=== PATIENT | female | born 2000 | race Caucasian/White ===

== ENCOUNTER 2022-03-04 18:36 | Emergency (ER) | payer BC, SELFPAY ==
[2022-03-04 19:08] VITALS: BP 124/74; PULSE 90; RESP 18; O2SAT 99; BMI 25.5
--- NOTE | 2022-03-04 19:22 | ED_ITS ---
HPI - General Adult General Chief complaint: Unspecified Complaint, Adult Stated complaint: Ill, blood in vomit - Time Seen by Provider: 03/04/22 18:46 History of Present Illness HPI narrative: This 21-year-old female comes in reporting nausea and vomiting. She is 8 weeks and states that she has been having some nausea with vomiting in this 1st trimester of her but symptoms worsened today. She states that she is repeatedly vomiting and noticed a few specks of blood in the vomit today. She states that she has been using some say to try to treat these symptoms but she is not taking any prescription anti nausea medicines. She does not report any fevers or diarrhea. She does not have any vaginal discharge or abdominal pain. Related Data Home Medications Medication Instructions Recorded Confirmed buspirone 5 mg tablet mg 03/04/22 dicyclomine 10 mg capsule 20 mg PO 03/04/22 ondansetron HCl 4 mg tablet 4 mg PO Q6-8H PRN 03/04/22 03/04/22 pantoprazole 40 mg tablet,delayed mg PO 03/04/22 release Allergies Allergy/AdvReac Type Severity Reaction Status Date / Time Penicillins AdvReac Verified 03/04/22 19:11 Review of Systems Status of ROS: Reports: 10 or more systems reviewed and unremarkable except as noted in History and below Narrative: Constitutional: No fevers, no weight gain or loss. Eyes: No discharge. No vision changes. HENT: No congestion, no sore throat, no ear pain. Cardiovascular: No chest pain, no palpitations. Respiratory: No shortness of breath, no wheezes, no cough. Gastrointestinal: No abdominal pain, no diarrhea. Nausea with vomiting. Genitourinary: No dysuria, no hematuria. Musculoskeletal: Normal range of motion. Skin: No rashes, no pruritis. Neurological: No dizziness, weakness, sensory change, speech change. Endo/Heme/Allergies: No bruising or bleeding. No polydipsia. Pysch: no suicidality, no anxiety, no insomnia. All other systems reviewed and are negative. PFSH PFSH Social History Smoking Status: Never smoker How often do you have a drink containing alcohol: never AUDIT-C Alcohol total score: 0 Exam Narrative: Exam Narrative: Constitutional: Well-developed, well-nourished, no acute distress. HEENT: Normocephalic, atraumatic. Neck: Normal range of motion. Nontender. Supple. Heart: Regular. No murmurs. Normal rate. Intact distal pulses. Lungs: Clear to auscultation. No chest discomfort. No wheezes, rhonchi, or rales. Abdomen: Normal bowel sounds. Nontender. No rebound tenderness. Genitalia: Deferred. Back: No midline tenderness. Normal range of motion. Extremities: Normal range of motion. No injury. Skin: Intact. No rash. Warm. No erythema or pallor. Neurologic: No altered sensation. No weakness. Alert and oriented. Psychiatric: No suicidality. No anxiety or depression. No insomnia. Nursing notes and vitals signs are reviewed. Const: Vital Signs, click to edit/add: Vital Signs - 24 hr 03/04/22 19:08 Pulse Rate [Right Pulse Oximeter] 90 Respiratory Rate 18 Blood Pressure [Ri ght Upper Arm] 124/74 Pulse Oximetry 99 Oxygen Delivery Me thod Room Air Course Vital Signs Vital signs: Initial Vital Signs Pulse Rate 90 03/04/22 19:08 Respiratory Rate 18 03/04/22 19:08 Blood Pressure 124/74 03/04/22 19:08 Blood Pressure Mean 90 03/04/22 19:08 Blood Pressure Position Sitting 03/04/22 19:08 Pulse Oximetry 99 03/04/22 19:08 Oxygen Delivery Method 03/04/22 19:08 Vital Signs Pulse Rate 90 03/04/22 19:08 Respiratory Rate 18 03/04/22 19:08 Blood Pressure 124/74 03/04/22 19:08 Pulse Oximetry 99 03/04/22 19:08 Oxygen Delivery Method 03/04/22 19:08 Pulse Rate 90 03/04/22 19:08 Respiratory Rate 18 03/04/22 19:08 Blood Pressure 124/74 03/04/22 19:08 Pulse Oximetry 99 03/04/22 19:08 Oxygen Delivery Method 03/04/22 19:08 Medical Decision Making [facility] Narrative Medical decision making narrative: This 21-year-old female comes in with hyper emesis gravidarum. She is 8 weeks . An IV was established where she received a L of normal saline and 4 mg of Zofran intravenously. This brought sufficient relief of her symptoms. Lab results returned with reassuring findings. She did receive a prescription for Zofran. Lab Data Labs: Lab Results 03/04/22 03/04/22 Range/Units 19:30 19:30 WBC 8.85 (4.50-11.00) K/uL RBC 4.14 (4.00-5.20) m/uL Hgb 12.3 (12.0-16.0) gm/dL Hct 35.7 (33.0-51.0) % MCV 86 (80-100) fL MCH 30 (26-34) pg MCHC 35 (32-36) gm/dL Plt Count 273 (140-440) K/uL Neut % (Auto) 69.4 (42.0-72.0) % Lymph % (Auto) 24.1 (20-44) % [place] % (Auto) 5.3 (0.0-11.0) % Eos % (Auto) 0.6 (0.0-7.0) % Baso % (Auto) 0.1 (0.0-3.0) % Neut # (Auto) 6.10 (1.7-7.0) K/uL Lymph # (Auto) 2.10 (0.90-2.90) K/uL [place] # (Auto) 0.50 (0.00-0.90) K/UL Eos # (Auto) 0.10 (0.00-0.50) K/uL Baso # (Auto) 0.00 (0.00-0.30) K/uL Sodium 133 L (135-149) mmol/L Potassium 3.8 (3.6-5.1) mmol/L Chloride 101 (96-114) mmol/L Carbon Dioxide 24 (20-32) mmol/L BUN 14 (5-24) mg/dL Creatinine 0.5 (0.5-1.5) mg/dL Estimated Creat Clear 147.23 Estimated GFR 137 ml/min Glucose 82 (60-115) mg/dL Calcium 9.7 (8.4-10.6) mg/dL Discharge Plan Discharge Clinical Impression: Hyperemesis gravidarum Patient Disposition: Home, Self-Care Condition: Stable Additional Instructions: Take frequent sips of fluid. Use medication as needed and indicated. Follow up with MD or return if worsening. Prescriptions: No Action buspirone 5 mg tablet Label Comments: TAKE ONE TABLET BY MOUTH EVERY MORNING AND TAKE ONE TABLET BY MOUTH EVERY EVENING ; START WITH ONE-HALF TABLET ONCE DAILY AND INCREASE TO ON dicyclomine 10 mg capsule 20 mg PO Label Comments: TAKE ONE CAPSULE BY MOUTH THREE TIMES DAILY pantoprazole 40 mg tablet,delayed release (DR/EC) PO Label Comments: TAKE ONE TABLET BY MOUTH EVERY DAY 30 MINUTES BEFORE BREAKFAST. ondansetron HCl 4 mg tablet 4 mg PO Q6-8H PRN Follow Up/Referrals: Tanvi Mccoy, RICHARD, [employer] [Primary Care Provider] - Stand Alone Forms: [facility] Info Instructions
[2022-03-04] MEDS: ONDANSETRON 2 MG/ML inj 4 MG IVP (19:31)
[2022-03-04] MEDS: 0.9 % SODIUM CHLORIDE 1000 ml 1,000 ML IV (19:31)
[2022-03-04 19:39] LABS: Hemoglobin* 12.3 gm/dL (12.0-16.0); Red Blood Count 4.14 m/uL (4.00-5.20); White Blood Count* 8.85 K/uL (4.50-11.00)
[2022-03-04 19:40] LABS: Basophils Percent Auto 0.1 % (0.0-3.0); Eosinophils Percent Auto 0.6 % (0.0-7.0); Hematocrit 35.7 % (33.0-51.0); Lymphocytes Percent Auto 24.1 % (20-44); Mean Corpuscular HGB Conc 35 gm/dL (32-36); Mean Corpuscular Hemoglobin 30 pg (26-34); Mean Corpuscular Volume 86 fL (80-100); Monocytes Percent Auto 5.3 % (0.0-11.0); Neutrophils Percent Auto 69.4 % (42.0-72.0); Platelet Count* 273 K/uL (140-440); Slide Review Reflex No
--- OUTSIDE RECORDS SUMMARY | 2022-03-04 19:51 | XMS_ITS | Encounter Summary ---
:2000 Author Organization [facility] Address [address] [place] [id number] Care Team Providers Name Role Phone Tanvi Mccoy ELLEN Primary Care Provider [phone] Reason for Visit Reason Comments Abdominal Pain Encounter Details Date Type Department Care Team Description 06/29/2019 Emergency [facility] [place] Carly Velez Pelvic mimi in in female; [facility] Emergency TANIA Mueller Constipation, unspecified constipation t ype Dept [facility] [address] [place], [place] [address] [facility] [id number] [place] [address] [place] [address] (Wo rk) Social History Tobacco Use Types Packs/Day Years Used Date Smoking Tobacco: Never Sex Assigned at Date Recorded Not on file documented as of this encounter Last Filed Vital Signs Vital Sign Reading Time Taken Comments Blood Pressure 131/72 06/29/2019 5:55 PM RELIGIOUS RITUAL SLAUGHTERER Pulse 87 06/29/2019 5:55 PM RELIGIOUS RITUAL SLAUGHTERER Temperature 37 ??C (98.6 ??F) 06/29/2019 5:55 PM RELIGIOUS RITUAL SLAUGHTERER Respiratory Rate 16 06/29/2019 5:55 PM RELIGIOUS RITUAL SLAUGHTERER Oxygen Saturation 98% 06/29/2019 5:55 PM RELIGIOUS RITUAL SLAUGHTERER Inhaled Oxygen Concentration - - Weight - - Height - - Body Mass Index - - documented in this encounter Discharge Instructions Discharge InstructionsCarly Esteves PA-C - 06/29/2019 8:53 PM RELIGIOUS RITUAL SLAUGHTERER Discharge Instructions Abdominal Pain Abdominal pain (belly pain) can be caused by many things. Your evaluation today does not show the exact cause for your pain. Your provider today has decided that it is unlikely your pain is due to a life threatening problem, or a problem requiring surgery or hospital admission. Sometimes those problems cannot be found right away, so it is very important that you follow up as directed. Sometimes only the changes which occur over time allow the cause of your pain to be found. Generally, every Emergency Department visit should have a follow-up clinic visit with either a primary or a specialty clinic/provider. Please follow-up as instructed by your emergency provider today. With abdominal pain, we often recommend very close follow-up, such as the following day. ADULTS: Return to the Emergency Department right away if: You get an oral temperature above 102oF or as directed by your provider. You have blood in your stools. This may be bright red or appear as black, tarry stools. You keep vomiting (throwing up) or cannot drink liquids. You see blood when you vomit. You cannot have a bowel movement or you cannot pass gas. Your stomach gets bloated or bigger. Your skin or the whites of your eyes look yellow. You faint. You have bloody, frequent or painful urination (peeing). You have new symptoms or anything that worries you. CHILDREN: Return to the Emergency Department right away if your child has any of the above-listed symptoms or the following: Pushes your hand away or screams/cries when his/her belly is touched. You notice your child is very fussy or weak. Your child is very tired and is too tired to eat or drink. Your child is dehydrated. Signs of dehydration can be: Significant change in the amount of wet diapers/urine. Your or child starts to have dry mouth and lips, or no saliva (spit) or tears. WOMEN: Return to the Emergency Department right away if you have any of the above-listed symptoms or the following: You have bleeding, leaking fluid or passing tissue from the vagina. You have worse pain or cramping, or pain in your shoulder or back. You have vomiting that will not stop. You have a temperature of 100oF or more. Your baby is not moving as much as usual. You faint. You get a bad headache with or without eye problems and abdominal pain. You have a seizure. You have unusual discharge from your vagina and abdominal pain. Abdominal pain is pretty common during . Your pain may or may not be related to your . You should follow-up closely with your OB provider so they can evaluate you and your baby. Untilyou follow-up with your regular provider, do the following: Avoid sex and do not put anything in your vagina. Drink clear fluids. Only take medications approved by your provider. MORE INFORMATION: Appendicitis: A possible cause of abdominal pain in any person who still has their appendix is acuteappendicitis. Appendicitis is often hard to diagnose. Testing does not always rule out early appendicitis or other causes of abdominal pain. Close follow-up with your provider and re-evaluations may beneeded to figure out the reason for your abdominal pain. Follow-up: It is very important that you make an appointment with your clinic and go to the appointment. If you do not follow-up with your primary provider, it may result in missing an important development which could result in permanent injury or disability and/or lasting pain. If there is any problem keeping your appointment, call your provider or return to the Emergency Department. Medications: Take your medications as directed by your provider today. Before using [id number], ask your provider and make sure to take the medications as directed. If you have any questions about medications, ask your provider. Diet: Resume your normal diet as much as possible, but do not eat fried, fatty or spicy foods while you have pain. Do not drink alcohol or have caffeine. Do not smoke tobacco. Probiotics: If you have been given an antibiotic, you may want to also take a probiotic pill or eat yogurt with live cultures. Probiotics have good bacteria to help your intestines stay healthy. Studies have shown that probiotics help prevent diarrhea (loose stools) and other intestine problems (including C. diff infection) when you take antibiotics. You can buy these without a prescription in the pharmacy section of the store. If you were given a prescription for medicine here today, be sure to read all of the information (including the package insert) that comes with your prescription. This will include important information about the medicine, its side effects, and any warnings that you need to know about. The pharmacist who fills the prescription can provide more information and answer questions you may have about the medicine. If you have questions or concerns that the pharmacist cannot address, please call or return to the Emergency Department. Remember that you can always come back to the Emergency Department if you are not able to see your regular provider in the amount of time listed above, if you get any new symptoms, or if there is anything that worries you. GIOUS RITUAL SLAUGHTERER AttachmentsThe following attachments cannot be sent through Care Everywhere. Constipation (Adult) (Grenadian)documented in this encounter Medications at Time of Discharge Medication Sig Dispensed Refills Start Date End Date Hydrocodone-Acetaminophen 0 (NORCO PO)Indications: Abdominal pain, other specified site, Lower back pain, Dysuria IBUPROFEN PO Take 600 mg by 0 mouth every 6 hours MedroxyPROGESTERone Acetate Injection every 3 0 (DEPO-PROVERA IM) months Phenazopyridine HCl (PYRIDIUM 0 PO)Indications: Abdominal pain, other specified site, Lower back pain, Dysuria polyethylene glycol Take 1/2 - 2 527 g 5 02/21/2014 (MIRALAX/GLYCOLAX) capfuls by mouth powderIndications: daily. Constipation TraMADol HCl (ULTRAM PO) Take 50 mg by 0 mouth every 6 hours documented as of this encounter ED Notes Delon Graf RN - 06/29/2019 5:55 PM CST Pt with hx of chronic low ab pain. Starting to have increased LLQ ab pain and left flank pain last night. Also c/o dysuria and urinary frequency GIOUS RITUAL SLAUGHTERER Carly Esteves PA-C - 06/29/2019 5:51 PM CST History Chief Complaint: Abdominal Pain The history is provided by the patient. Renay Yancey is a 19 year old female with a history of endometriosis, chronic abdominal pain, paroxysmal SVT, and an ovarian cyst who presents with abdominal pain. The patient states that her chronic abdominal pain has worsened over the past few days. The pain is worse on the left side of her abdomen. She endorses back pain and some dysuria, but denies any fevers. She was nauseous earlier, but notcurrently. The patient has not taken any pain medications for her symptoms yet. She experienced vaginal bleeding last night and does not get regular periods. She also endorses diarrhea, but this began before she was placed on antibiotics for a UTI and a sinus infection at the beginning of the month. She has also been on Linzess for the last 2-3 weeks for constipation. Allergies: Amoxicillin Augmented Betamethasone Diprop [Betamethasone] Cefzil [Cefprozil] Penicillins Cephalosporins Kiwi Medications: Cal Nev Ari Depo-provera Pyridium Pristiq Miralax Ultram Linzess Past Medical History: Dysmenorrhea Hyperopic astigmatism of left eye Anxiety Depression Paroxysmal SVT (supraventricular tachycardia) Insomnia Allergic rhinitis Viral warts Endometriosis determined by laparoscopy Rotavirus enteritis Anemia Chronic abdominal pain Dysautonomia Past Surgical History: Colonoscopy EGD, combined Appendectomy Tonsillectomy Ablation [place] teeth extraction Hysteroscopy Colonoscopy Endoscopy Diagnostic laparoscopy IUD insertion-removal affiliate only Family History: Endometriosis - mother Hypertension - father Hyperlipidemia - father Prediabetes - mother Endometriosis - mother Hyperlipidemia - mother Migraines - mother Seizures - mother Social History: Negative for tobacco use. Negative for alcohol use. Negative for drug use. Patient accompanied to the ED by her mother. Marital Status: Single [1] Review of Systems Constitutional: Negative for fever. Gastrointestinal: Positive for abdominal pain, constipation and diarrhea. Negative for nausea (earlier, none currently). Genitourinary: Positive for dysuria and vaginal bleeding. Musculoskeletal: Positive for back pain. All other systems reviewed and are negative. Physical Exam Patient Vitals for the past 24 hrs: BP Temp Pulse Heart Rate Resp SpO2 06/29/19 1755 131/72 98.6 ??F (37 ??C) 87 87 16 98 % Physical Exam General: Alert and interactive. Appears well. Cooperative and pleasant. Eyes: The pupils are equal and round. EOMs intact. No scleral icterus. ENT: No abnormalities to the external nose or ears. Mucous membranes moist. Posterior oropharynx is non-erythematous. Neck: Trachea is in the midline. No nuchal rigidity. CV: Regular rate and rhythm. S1 and S2 normal without murmur, click, gallop or rub. Resp: Breath sounds are clear bilaterally, without rhonchi, wheezes, rales. Non- labored, no retractions or accessory muscle use. GI: Abdomen is soft without distension. Tenderness to palpation, diffusely in abdomen, LLQ worse than RLQ. Positive CVA tenderness on left. MS: Moving all extremities well. Good muscle tone. Skin: Warm and dry. No rash or lesions noted. Neuro: Alert and oriented x 3. No focal neurologic deficits. Good strength and sensation in upper and lower extremities. Psych: Awake. Alert. Normal affect. Appropriate interactions. Lymph: No anterior or posterior cervical lymphadenopathy noted. Emergency Department Course Imaging: Radiology findings were communicated with the patient and family who voiced understanding of the findings. US Pelvis Cmplt w Transvag & Doppler LmtPel Duplex limited: 1. ??Trace amount of potentially physiologic free fluid in the endometrial canal. 2. ??Otherwise, negative pelvic ultrasound. Normal ovaries, as per radiology. CT Abd/Pelvis w/o IV contrast - Stone Protocol: 1. ??No hydronephrosis or obstructing ureteral stone. 2. ??Moderate to large amount of formed colonic stool, suggestive of constipation, as per radiology. Laboratory: Laboratory findings were communicated with the patient and family who voiced understanding of the findings. UA: clear, straw urine, pH urine 7.5 H, bacteria few, mucous present o/w negative CBC: AWNL (WBC 5.8, HGB 12.5, PLT 258) BMP: Glucose 103 H o/w WNL (Creatinine 0.65) ISTAT HCG Quantitative POCT: <5.0 Interventions: 1830: Toradol 15 mg IV 2009: Dilaudid 0.5 mg IV Emergency Department Course: Past medical records, nursing notes, and vitals reviewed. 1803: I performed an exam of the patient as documented above. IV was inserted and blood was drawn for laboratory testing, results above. The patient provided a urine sample here in the emergency department. This was sent for laboratory testing, findings above. The patient was sent for a complete pelvis ultrasound and an abdomen pelvis CT while in the emergency department, results above. 1951: I rechecked the patient and discussed the results of her workup thus far. 2043: Patient rechecked and updated. 2049: Patient rechecked and updated. I personally reviewed the laboratory and imaging results with the Patient and mother and answered all related questions prior to discharge. Findings and plan explained to the Patient and mother. Patient discharged home with instructions regarding supportive care, medications, and reasons to return. The importance of close follow-up was reviewed. Impression & Plan Medical Decision Making: Renay Yancey is a 19 year old female with a history of endometriosis, chronic abdominal pain, ovarian cysts, and constipation who presents for evaluation of left lower quadrant abdominal pain. The patient is status post appendectomy. She has had a cyst rupture before and is worried about this. Considered ovarian torsion, ovarian cyst, urinary tract infection, pyelonephritis, bowel obstruction, ureterolithiasis, and many others. Fortunately her work-up here has been negative and reassuring. Laboratory work-up is totally within the normal limits without any signs of anemia, leukocytosis, renal or hepatic dysfunction. Patient not . Without leukocytosis, CT or pelvic US evidence of inflammation, low suspicion for PID, as the patient has no concerns for STI. Urine shows no markers for infection. Ultrasound shows no ovarian cyst, ovarian torsion, or other abnormalities. CT of the abdomen and pelvis shows no signs of stones but significant constipation. Patient has been taking Linzess from a GI doctor, although this does not seem to be helping her constipation. I have suggested she begin Miralax daily and have given her information for Dr. Flor, GI, for follow-up. Will return for intractable pain or vomiting, fevers/chills, other worrisome symptoms. Diagnosis: ICD-10-CM 1. Pelvic pain in female R10.2 2. Constipation, unspecified constipation type K59.00 Disposition: Discharged to home. Scribe Disclosure: I, Junie Arguelles, am serving as a scribe at 6:08 PM on 06/29/2019 to document services personally performed by Carly Esteves PA-C based on my observations and the provider's statements to me. Junie Arguelles 06/29/2019 [facility] EMERGENCY DEPARTMENT Carly Esteves PA-C 06/29/192114 GIOUS RITUAL SLAUGHTERER documented in this encounter Plan of Treatment Not on filedocumented as of this encounter Procedures Procedure Name Priority Date/Time Associated Comments Diagnosis CT ABDOMEN PELVIS W/O STAT 06/29/2019 8:26 PM Results for this CONTRAST RELIGIOUS RITUAL SLAUGHTERER procedure are i n the results section. US PELVIS COMPLETE W STAT 06/29/2019 7:09 PM R esults for this TRANSVAGINAL AND RELIGIOUS RITUAL SLAUGHTERER procedure a re in DOPPLER LIMITED the results section. ISTAT HCG Routine 06/29/2019 6:30 PM Results f or this QUANTITATIVE RELIGIOUS RITUAL SLAUGHTERER procedure are i n POCT the results section. CBC WITH PLATELETS & STAT 06/29/2019 6:30 PM R esults for this DIFFERENTIAL RELIGIOUS RITUAL SLAUGHTERER procedure are i n the results section. BASIC METABOLIC PANEL STAT 06/29/2019 6:30 PM Results for this RELIGIOUS RITUAL SLAUGHTERER procedure are i n the results section. ROUTINE UA WITH STAT 06/29/2019 6:06 PM Result s for this MICROSCOPIC RELIGIOUS RITUAL SLAUGHTERER procedure are i n the results section. documented in this encounter Results Abd/pelvis CT no contrast - Stone Protocol (06/29/2019 8:26 PM RELIGIOUS RITUAL SLAUGHTERER) Anatomical Region Laterality Modality Abdomen/Pelvis, SUBRAD CT BODY, UMP CT ABDOMEN PELVIS, Computed Tomography RAD CT Specimen (Source) Anatomical Collection Method Collection Time Re ceived Time Location / / Volume Laterality 06/29/2019 8:20 PM RELIGIOUS RITUAL SLAUGHTERER Impressions 06/29/2019 8:35 PM RELIGIOUS RITUAL SLAUGHTERER IMPRESSION: 1. ??No hydronephrosis or obstructing ur eteral stone. 2. ??Moderate to large amount of formed colonic stool, suggestive of constipation. Narrative 06/29/2019 8:35 PM RELIGIOUS RITUAL SLAUGHTERER EXAM: CT ABDOMEN PELVIS W/O CONTRAST LOCATION: [facility] DATE/TIME: 06/29/2019 8:20 PM INDICATION: Left lower quadrant abdomina l and flank pain. COMPARISON: None. TECHNIQUE: CT scan of the abdomen and pe lvis was performed without IV contrast. Multiplanar reformats were obtained. Dose reduction techniques were used. CONTRAST: None. FINDINGS: LOWER CHEST: Normal. HEPATOBILIARY: Nondistended gallbladder. Normal noncontrast appearance of the liver. PANCREAS: Normal. SPLEEN: Normal. ADRENAL GLANDS: Normal. KIDNEYS/BLADDER: No hydronephrosis or pe rinephric inflammatory change. No calcified ureteral or bladder stone. BOWEL: Moderate to large amount of forme d colonic stool. Appendix not visualized with certainty, no evidence of appendicitis. No free air. LYMPH NODES: Normal. VASCULATURE: Unremarkable. PELVIC ORGANS: Normal. MUSCULOSKELETAL: Normal. Procedure Note Harish Manley MD - 06/29/2019F ormatting of this note might be different from the original. EXAM: CT ABDOMEN PELVIS W/O CONTRAST LOCATION: [facility] DATE/TIME: 06/29/2019 8:20 PM INDICATION: Left lower quadrant abdomina l and flank pain. COMPARISON: None. TECHNIQUE: CT scan of the abdomen and pe lvis was performed without IV contrast. Multiplanar reformats were obtained. Dose reduction techniques were used. CONTRAST: None. FINDINGS: LOWER CHEST: Normal. HEPATOBILIARY: Nondistended gallbladder. Normal noncontrast appearance of the liver. PANCREAS: Normal. SPLEEN: Normal. ADRENAL GLANDS: Normal. KIDNEYS/BLADDER: No hydronephrosis or pe rinephric inflammatory change. No calcified ureteral or bladder stone. BOWEL: Moderate to large amount of forme d colonic stool. Appendix not visualized with certainty, no evidence of appendicitis. No free air. LYMPH NODES: Normal. VASCULATURE: Unremarkable. PELVIC ORGANS: Normal. MUSCULOSKELETAL: Normal. IMPRESSION: 1. No hydronephrosis or obstructing uret eral stone. 2. Moderate to large amount of formed co lonic stool, suggestive of constipation. Carly Esteves PA-C IMGarcia CT ORDERABLES US Pelvis Cmplt w Transvag & Doppler LmtPel Duplex Limited (06/29/2019 7:09 PM RELIGIOUS RITUAL SLAUGHTERER) Anatomical Region Laterality Modality Abdomen/Pelvis Ultrasound Specimen (Source) Anatomical Collection Method Collection Time Re ceived Time Location / / Volume Laterality 06/29/2019 7:09 PM RELIGIOUS RITUAL SLAUGHTERER Impressions 06/29/2019 7:32 PM RELIGIOUS RITUAL SLAUGHTERER IMPRESSION: ?? 1. ??Trace amount of potentially physiol ogic free fluid in the endometrial canal. 2. ??Otherwise, negative pelvic ultrasou nd. Normal ovaries. Narrative 06/29/2019 7:32 PM RELIGIOUS RITUAL SLAUGHTERER EXAM: US PELVIS COMPLETE W TRANSVAGINAL AND DOPPLER LIMITED LOCATION: [facility] DATE/TIME: 06/29/2019 7:09 PM INDICATION: Left lower quadrant pain. Hi story of ovarian cysts. COMPARISON: Ultrasound from 04/10/2019. TECHNIQUE: Transabdominal scans were per formed. Endovaginal ultrasound was performed to better visualize the adnexa. Color flow with spectral Doppler and waveform analysis performed. FINDINGS: UTERUS: 5.6 x 2.7 x 3.7 cm. Normal in si ze and position with no masses. ENDOMETRIUM: 3 mm. Trace amount of free fluid in the endometrial canal near the lower uterine segment. RIGHT OVARY: 3.2 x 1.2 x 1.1 cm. Normal with arterial and venous duplex flow identified. LEFT OVARY: 2.5 x 1.0 x 1.7 cm. Normal w ith arterial and venous duplex flow identified. No significant free fluid. Procedure Note Harish Manley MD - 06/29/2019F ormatting of this note might be different from the original. EXAM: US PELVIS COMPLETE W TRANSVAGINAL AND DOPPLER LIMITED LOCATION: [facility] DATE/TIME: 06/29/2019 7:09 PM INDICATION: Left lower quadrant pain. Hi story of ovarian cysts. COMPARISON: Ultrasound from 04/10/2019. TECHNIQUE: Transabdominal scans were per formed. Endovaginal ultrasound was performed to better visualize the adnexa. Color flow with spectral Doppler and waveform analysis performed. FINDINGS: UTERUS: 5.6 x 2.7 x 3.7 cm. Normal in si ze and position with no masses. ENDOMETRIUM: 3 mm. Trace amount of free fluid in the endometrial canal near the lower uterine segment. RIGHT OVARY: 3.2 x 1.2 x 1.1 cm. Normal with arterial and venous duplex flow identified. LEFT OVARY: 2.5 x 1.0 x 1.7 cm. Normal w ith arterial and venous duplex flow identified. No significant free fluid. IMPRESSION: 1. Trace amount of potentially physiolog ic free fluid in the endometrial canal. 2. Otherwise, negative pelvic ultrasound . Normal ovaries. Carly Esteves PA-C IMG US ORDERABLES ISTAT HCG Quantitative POCT (06/29/2019 6:30 PM RELIGIOUS RITUAL SLAUGHTERER) athologist Signature HCG Quantitative <5.0 <5.0 IU/L 06/29/2019 PO[place] E Serum 6:43 PM RELIGIOUS RITUAL SLAUGHTERER TEST, HANDHELD METER Specimen Anatomical Collection Method Collection Time Receive d Time (Source) Location / / Volume Laterality 06/29/2019 6:30 PM 0 6:43 RELIGIOUS RITUAL SLAUGHTERER PM RELIGIOUS RITUAL SLAUGHTERER Carly Esteves PA-C LAB - BEAKER POCT Performing Organization Address City/State/ZIP Code Phon e Number [facility] POINT OF CARE TEST, HANDHELD METER POINT OF CARE TEST, HANDHELD METER (ABNORMAL) Basic metabolic panel (06/29/2019 6:30 PM RELIGIOUS RITUAL SLAUGHTERER) athologist Signature Sodium 138 133 - 144 06/29/2019 [place] mmol/L 7:08 PM RELIGIOUS RITUAL SLAUGHTERER [facility] Potassium 3.9 3.4 - 5.3 06/29/2019 [place] mmol/L 7:08 PM [facility] Chloride 107 96 - 110 06/29/2019 [place] mmol/L 7:08 PM [facility] Carbon Dioxide 26 20 - 32 06/29/2019 [place] mmol/L 7:14 PM [facility] Anion Gap 5 3 - 14 06/29/2019 [place] mmol/L 7:14 PM [facility] Glucose 103 (H) 70 - 99 06/29/2019 [place] mg/dL 7:14 PM [facility] Urea Nitrogen 12 7 - 30 06/29/2019 [place] mg/dL 7:14 PM [facility] Creatinine 0.65 0.50 - 06/29/2019 [place] 1.00 mg/dL 7:14 PM [facility] GFR Estimate >90 >60 06/29/2019 [place] mL/min/{1. 7:14 PM [facility] 73_m2} HOSPITAL Comment: Non GFR Calc Starting 05/03/2018, serum creatinine ba sed estimated GFR (eGFR) will be calculated using the Chronic Kidney Dise [facility] Epidemiology Collaboration (CKD-EPI) equation. GFR Estimate If >90 >60 mL/min/{1.73_m2} 06/29/2019 7: 14 PM [facility] Comment: GFR Calc Starting 05/03/2018, serum creatinine ba sed estimated GFR (eGFR) will be calculated using the Chronic Kidney Dise [facility] Epidemiology Collaboration (CKD-EPI) equation. Calcium 9.1 8.5 - 10.1 mg/dL 06/29/2019 7:14 PM [facility] Specimen Anatomical Collection Method Collection Time Receive d Time (Source) Location / / Volume Laterality Blood specimen 06/29/2019 6:30 PM 020 6:46 (specimen) RELIGIOUS RITUAL SLAUGHTERER PM RELIGIOUS RITUAL SLAUGHTERER Carly Esteves PA-C LAB - BLOOD ORDERABLES Performing Organization Address City/State/ZIP Code Phon e Number [facility] [address], [place] [address] [facility] [address], [place] [address] [place] [address] (ABNORMAL) CBC + differential (06/29/2019 6:30 PM RELIGIOUS RITUAL SLAUGHTERER) [facility] Method Time Signature WBC 5.8 4.0 - 06/29/2019 [facility] 11.0 7:04 PM [facility] 10e9/L [place] [facility] RBC Count 4.29 3.8 - 5.2 06/29/2019 [facility] 10e12/L 7:04 PM [facility] Hemoglobin 12.5 11.7 - 06/29/2019 [facility] 15.7 g/dL 7:04 PM [facility] Hematocrit 37.7 35.0 - 06/29/2019 [facility] 47.0 % 7:04 PM [facility] MCV 88 78 - 100 06/29/2019 [facility] fl 7:04 PM [facility] MCH 29.1 26.5 - 06/29/2019 [facility] 33.0 pg 7:04 PM [facility] MCHC 33.2 31.5 - 06/29/2019 [facility] 36.5 g/dL 7:04 PM [facility] RDW 11.8 10.0 - 06/29/2019 [facility] 15.0 % 7:04 PM [facility] Platelet Count 258 150 - 450 06/29/2019 [facility] 10e9/L 7:04 PM [facility] Diff Method Automated 06/29/2019 [facility] Method 7:04 PM [facility] % Neutrophils 42.2 % 06/29/2019 [facility] 7:04 PM [facility] % Lymphocytes 50.3 % 06/29/2019 [facility] 7:04 PM [facility] % Monocytes 5.1 % 06/29/2019 [facility] 7:04 PM [facility] % Eosinophils 2.1 % 06/29/2019 [facility] 7:04 PM [facility] % Basophils 0.3 % 06/29/2019 [facility] 7:04 PM [facility] % Immature 0.0 % 06/29/2019 [facility] Granulocytes 7:04 PM [facility] Nucleated RBCs 1 (H) 0 /100 06/29/2019 [facility] 7:04 PM [facility] Absolute 2.5 1.6 - 8.3 06/29/2019 [facility] Neutrophil 10e9/L 7:04 PM [facility] Absolute 2.9 0.8 - 5.3 06/29/2019 [facility] Lymphocytes 10e9/L 7:04 PM [facility] Absolute 0.3 0.0 - 1.3 06/29/2019 [facility] Monocytes 10e9/L 7:04 PM [facility] Absolute 0.1 0.0 - 0.7 06/29/2019 [facility] Eosinophils 10e9/L 7:04 PM [facility] Absolute 0.0 0.0 - 0.2 06/29/2019 [facility] Basophils 10e9/L 7:04 PM [facility] Abs Immature 0.0 0 - 0.4 06/29/2019 [facility] Granulocytes 10e9/L 7:04 PM [facility] Absolute 0.0 06/29/2019 [facility] Nucleated RBC 7:04 PM [facility] Specimen Anatomical Collection Method Collection Time Receive d Time (Source) Location / / Volume Laterality Blood specimen 06/29/2019 6:30 PM 020 6:46 (specimen) RELIGIOUS RITUAL SLAUGHTERER PM RELIGIOUS RITUAL SLAUGHTERER Carly Esteves PA-C LAB - BLOOD ORDERABLES Performing Organization Address City/State/ZIP Code Phon e Number [place] [address] [place] [address] [facility] [address] [phone] (ABNORMAL) Routine UA with microscopic (06/29/2019 6:06 PM RELIGIOUS RITUAL SLAUGHTERER) Component Value Ref Test Analysis Performed At [facility] Range Method Time Signature Color Urine Straw 06/29/2019 [facility] 6:15 PM [facility] Appearance Urine Clear 06/29/2019 [facility] 6:15 PM [facility] Glucose Urine Negative NEG^Nega 06/29/2019 [facility] tive 6:15 PM [facility] mg/dL HOSPITAL Bilirubin Urine Negative NEG^Nega 06/29/2019 [facility] tive 6:15 PM [facility] Ketones Urine Negative NEG^Nega 06/29/2019 [facility] tive 6:15 PM [facility] mg/dL HOSPITAL Specific Allen 1.013 1.003 - 06/29/2019 [facility] Urine 1.035 6:15 PM [facility] Blood Urine Negative NEG^Nega 06/29/2019 [facility] tive 6:15 PM [facility] pH Urine 7.5 (H) 5.0 - 06/29/2019 [facility] 7.0 pH 6:15 PM [facility] Protein Albumin Negative NEG^Nega 06/29/2019 [facility] Urine tive 6:15 PM [facility] mg/dL [facility] Urobilinogen Normal 0.0 - 06/29/2019 [facility] mg/dL 2.0 6:15 PM [facility] mg/dL HOSPITAL Nitrite Urine Negative NEG^Nega 06/29/2019 [facility] tive 6:15 PM [facility] Leukocyte Negative NEG^Nega 06/29/2019 [facility] Esterase Urine tive 6:15 PM [facility] Source Unspecified 06/29/2019 [facility] Urine 6:09 PM [facility] WBC Urine <1 0 - 5 06/29/2019 [facility] /HPF 6:15 PM [facility] RBC Urine 0 0 - 2 06/29/2019 [facility] /HPF 6:15 PM [facility] Bacteria Urine Few (A) NEG^Nega 06/29/2019 [facility] tive 6:15 PM [facility] Squamous 1 0 - 1 06/29/2019 [facility] Epithelial /HPF /HPF 6:[address] [facility] Mucous Urine Present (A) NEG^Nega 06/29/2019 [facility] tive 6:15 PM [facility] Specimen (Source) Anatomical Collection Method Collection Time Re ceived Time Location / / Volume Laterality Unspecified Urine 06/29/2019 6:06 020 6:08 PM RELIGIOUS RITUAL SLAUGHTERER PM RELIGIOUS RITUAL SLAUGHTERER Carly Esteves PA-C LAB - URINE ORDERABLES Performing Organization Address City/State/ZIP Code Phon e Number [place] [address] [address] [facility] [address] [phone] documented in this encounter Visit Diagnoses Diagnosis Pelvic pain in female Unspecified symptom associated with fema le genital organs Constipation, unspecified constipation t ype documented in this encounter Administered Medications Inactive Administered Medications - up to 3 most recent administrations Medication Order MAR Action Action Date Dose Rate Site ketorolac (TORADOL) injection 15 mg Given 06/29/2019 6:30 PM RELIGIOUS RITUAL SLAUGHTERER 15 mg 15 mg, Intravenous, ONCE, On Tawanna 06/29/19 at 1813, For 1 dose, Can cause pain on injection. If ordered intravenously (IV) : administer through a running maintenance fluid over 1 minute followed by a flush. If patient complains of pain on injection, may dilute 15-30 mg in 5 mL and push over 1 to 2 minutes. documented in this encounter Active and Recently Administered Medications Times are shown in RELIGIOUS RITUAL SLAUGHTERER. Scheduled Medication Order 06/27/2019 06/28/2019 06/29/2019 HYDROmorphone (PF) (DILAUDID) injection 0.5 mg 2008 (Not Given - Provider: Socorro Rodriges, SEGUN - Reason: Patient/family refused) 0.5 mg, Intravenous, ONCE, 1 dose, Tawanna at 1957, For ordered IV doses 0.1-4 mg give IV Push undiluted. Administer each 2mg over 2-5 minutes. ketorolac (TORADOL) injection 15 mg (COMPLETED) 1829 (Given - Provider: Socorro Rodriges, SEGUN) 15 mg, Intravenous, ONCE, Tawanna 06/29/19 at 1813, For 1 dose, Can cause pain on injection. If ordered intravenously (IV) : administer through a running maintenance fluid over 1 minute followed by a flush. If patient complains of pain on injectio n, may dilute 15-30 mg in 5 mL and push over 1 to 2 minutes. documented in this encounter Care Teams Nail Technician Teacher Relationship Specialty Start Date End Date Tanvi Mccoy NP PCP - General Nurse Practitioner - 06/29/19 [facility] [address] [facility] [place] [address] documented as of this encounter
--- OUTSIDE RECORDS SUMMARY | 2022-03-04 19:51 | XMS_ITS | Encounter Summary ---
:2000 Author Organization [facility] Address [address] [place] [address]. [place] [address] Care Team Providers Name Role Phone Miya Baez Primary Care Provider Reason for Visit (Routine) - Closed Specialty Diagnoses / Procedures Referred By Contact Refer red To Contact Radiology / Radiology. Procedures Ur Ultrasound US ABDOMEN COMPLETE [address] [place] [phone] Phone: Referral ID Status Reason Start Date Expiration Date Visits Requ ested Visits Authorized [id number] Closed 02/21/2014 02/21/2015 1 1 Encounter Details Date Type Department Care Team Description 02/21/2014 Hospital Encounter [facility] Valenzuela Francisca, Abdominal pain, other specified site; [facility] Imaging Tanvi Carey APRN Lower back pain; [address] [place] [address] REGULATORY COMPLIANCE SPECIALIST [address] [place] [address] [phone] Social History Tobacco Use Types Packs/Day Years Used Date Smoking Tobacco: Never Sex Assigned at Date Recorded Not on file documented as of this encounter Medications at Time of Discharge Medication Sig Dispensed Refills Start Date End Date Hydrocodone-Acetaminophen 0 (NORCO PO)Indications: Abdominal pain, other specified site, Lower back pain, Dysuria Phenazopyridine HCl 0 (PYRIDIUM PO)Indications: Abdominal pain, other specified site, Lower back pain, Dysuria polyethylene glycol Take 1/2 - 2 527 g 5 02/21/2014 (MIRALAX/GLYCOLAX) capfuls by mouth powderIndications: daily. Constipation UNKNOWN TO Control pill 0 2013 PATIENTIndications: Abdominal pain, other specified site, Lower back pain, Dysuria documented as of this encounter Plan of Treatment Not on filedocumented as of this encounter Procedures Procedure Name Priority Date/Time Associated Diagnosis Comme nts US ABDOMEN COMPLETE Routine 02/21/2014 4:36 PM Abdominal Pain, Results for this CDT Other Specified Site procedure are in Lower back pain the results Dysuria section. documented in this encounter Results US Abdomen Complete (02/21/2014 4:36 PM CDT) Anatomical Region Laterality Modality Abdomen/Pelvis Ultrasound Specimen (Source) Anatomical Location Collection Method / Collectio n Time Received Time / Laterality Volume Impressions 02/22/2014 2:34 PM CDT Impression: ??Unremarkable abdominal ultrasound. I have personally reviewed the examinati on and initial interpretation and I agree with the findings. EMILY HILL MD Narrative 02/22/2014 2:34 PM CDT EXAM: Abdominal /8/2014 4:53 PM HISTORY: Acute onset abd and back pain, CT imaging shows inflammation near colon; Family hx endometriosis,Abdo carlos ??pain, other specified site COMPARISON: none FINDINGS: ?? The visualized aorta and IVC are normal. Pancreas: The partially visualized pancr eas appears normal. Liver: The liver measures 14.4 cm in jose gth and demonstrates normal echogenicity without evidence of intrahe patic biliary dilatation or mass. Gall Bladder: The gall bladder appears n ormal without stones, wall thickening, or pericystic fluid. ??The w all measures 3 mm. ??Negative sonographic ta's sign. The common bile duct measures 3 mm. The right kidney measures 9.9 cm in jens th and demonstrates normal echogenicity without hydronephrosis or m ass. ??The left kidney measures 9.2 cm in length and demonstrates normal echogenicity without hydronephrosis or mass. The spleen measures 7.6 cm and demonstra sherman normal echogenicity without mass. No ascites. Procedure Note Emily Hill MD - 02/22/2014Formattin g of this note might be different from the original. EXAM: Abdominal /8/2014 4:53 PM HISTORY: Acute onset abd and back pain, CT imaging shows inflammation near colon; Family hx endometriosis,Abdo carlos pain, other specified site COMPARISON: none FINDINGS: The visualized aorta and IVC are normal. Pancreas: The partially visualized pancr eas appears normal. Liver: The liver measures 14.4 cm in jose gth and demonstrates normal echogenicity without evidence of intrahe patic biliary dilatation or mass. Gall Bladder: The gall bladder appears n ormal without stones, wall thickening, or pericystic fluid. The wal l measures 3 mm. Negative sonographic ta's sign. The common bile duct measures 3 mm. The right kidney measures 9.9 cm in jens th and demonstrates normal echogenicity without hydronephrosis or m ass. The left kidney measures 9.2 cm in length and demonstrates normal echogenicity without hydronephrosis or mass. The spleen measures 7.6 cm and demonstra sherman normal echogenicity without mass. No ascites. IMPRESSION Impression: Unremarkable abdominal ultra sound. I have personally reviewed the examinati on and initial interpretation and I agree with the findings. EMILY HILL MD Tanvi Espinosa APRN REGULATORY COMPLIANCE SPECIALIST IMG US ORDERABLES documented in this encounter Visit Diagnoses Diagnosis Abdominal pain, other specified site Lower back pain Lumbago Dysuria documented in this encounter Care Teams Flexographic Press Set Up Operator Relationship Specialty Start Date End Date Miya Baez PCP - General Family Practice 02/16/14 06/28/19 [facility] [address] [place] [address] documented as of this encounter
--- OUTSIDE RECORDS SUMMARY | 2022-03-04 19:51 | XMS_ITS | Encounter Summary ---
:2000 Author Organization [place] Address [address] [place] [id number] Care Team Providers Name Role Phone Miya Baez Primary Care Provider Reason for Visit Reason Onset Date Comments Results 02/21/2014 Imaging, Labs Other Encounter Details Date Type Department Care Team Description 02/21/2014 Telephone [facility] Nicolas Espinosa, Result s (Imaging, [facility] Tanvi Carey, TABLEAU LEAD Lab s); Specialty Clinic [place] [id number], RESIGNED XX [facility] [address] [place], [place] Floor [address] [place], [place] [phone] (Wo rk) [address] [phone] Social History Tobacco Use Types Packs/Day Years Used Date Smoking Tobacco: Never Sex Assigned at Date Recorded Not on file documented as of this encounter Miscellaneous Notes Telephone Encounter - Tanvi Hopson NP - 03/26/2014 11:59 AM REGISTER [facility] No pt update at this time. [facility] Telephone Encounter - Tanvi Hopson NP - 02/23/2014 11:05 PM CDT Urine culture negative for growth, continue current POC. Awaiting pt update. Telephone Encounter - Tanvi Hopson NP - 02/22/2014 3:49 PM CDT Celiac screen WNL, abdominal ultrasound results WNL. LMTCB with update after weekend. No concerning labs at this time. Begin bowel clean-out over the weekend; see Peds Staffing Administrator for consultation tomorrow as previously scheduled. We will send results of labs and DI per Mom's request. Call with concerns/questions should an arise. Please call with pt update early next week. Telephone Encounter - Tanvi Hopson NP - 02/22/2014 11:48 AM CDT IgA results WNL. Telephone Encounter - Tanvi Hopson NP - 02/22/2014 10:22 AM CDT U/A and urine micro negative for blood, protein, positive for nitrites, 3WBC/HPF. Awaiting final culture results. Urine culture negative for growth, awaiting final results CMP: shows anion gap 5, albumin 3.8 , all other values WNL. CBC: Hgb 11.6, all other values WNL. ESR, TSH and CRP all WNL. Telephone Encounter - Tanvi Hopson NP - 02/21/2014 6:21 PM CDT KUB shows non-obstructive bowel gas pattern, normal osseous structures. No abnormal calcifications. Moderate stool, predominately in the left colon, begin bowel clean-out. Awaiting abdominal ultrasoundand lab results. documented in this encounter Plan of Treatment Not on filedocumented as of this encounter Visit Diagnoses Not on filedocumented in this encounter Care Teams Core Maker Helper Relationship Specialty Start Date End Date Miya Baez PCP - General Family Practice 02/16/14 06/28/19 [facility] [address] [place] [address] documented as of this encounter
--- OUTSIDE RECORDS SUMMARY | 2022-03-04 19:51 | XMS_ITS | Encounter Summary ---
:2000 Author Organization [place] Address [address] [facility] [place] [place] [address] Care Team Providers Name Role Phone Miya Baez Primary Care Provider Encounter Details Date Type Department Care Team Description 03/13/2014 Anesthesia Event M [facility] Chiquita Coe MD Sedation Observation [address] [facility] [address] [facility] [address] [place] [address] [place] [address] (Wo rk) Anesthesia Record Procedure Summary Procedure Name Responsible Anesthesiologist Anesthesia Start Ti me Anesthesia Stop Time SED PROC Keith Coe MD 03/13/14 0944 03/13/14 1103 Events Date Time Event Comment 03/13/2014 0944 An Start 0944 Present 0946 An Start Data 0949 An Induction 0949 MD Present 0954 AN INCISION 0954 MD Present 1059 an stop data 1059 MD Present 1103 An Stop Electronically s igned by Abdi Bautista on March 13, 2014 11:03 AM Name Total midazolam 1mg/mL 2 mg fentanyl 50mcg/mL 50 mcg lidocaine 2% 30 mg propofol 10mg/mL 100 mg propofol 10mg/mL 538.95 mg phenylephrine 100mcg/ml 100 mcg LR 400 mL Agents Name O2 Exp Sevoflurane Ins Sevoflurane Blood No blood administrations on file. Lines, Drains, and Airways Type Details Placement Removal Peripheral IV 03/13/14; 0901; 22 G; Left; Hand; 03/13/14 0901 by Olman Alcohol; Transdermal pressure SEGUN Chand (j-tip) documented in this encounter Social History Tobacco Use Types Packs/Day Years Used Date Smoking Tobacco: Never Sex Assigned at Date Recorded Not on file documented as of this encounter OR Notes Anesthesia Postprocedure Evaluation - Keith Coe MD - 03/13/2014 2:27 PM CDT Anesthesia Post-Evaluation Note Patient: Renay Yancey Patient location: PACU Procedure(s) Performed: Esophagogastroduodenoscopy, colonoscopy with biopsies Anesthesia type: MAC Post Op Diagnosis: abdominal pain No value filed. Patient Condition Respiratory Function (RR / SpO2 / Airway Patency): Satisfactory Cardiac Function (HR / Rhythm / BP): Satisfactory Mental Status: Satisfactory. Able to fully participate in evaluation Temperature: Satisfactory Pain Control: Satisfactory PONV: None Beta-Shira Therapy: None indicated Hydration Status: Satisfactory Last Vitals: Filed Vitals: 03/13/14 1145 03/13/14 1200 03/13/14 1215 BP: 86/56 101/61 Pulse: 90 98 Temp: Resp: 18 18 SpO2: 98% 98% 99% Additional Comments: Patient tolerated procedure well. Anesthesia Preprocedure Evaluation - Keith Coe MD - 03/13/2014 8:32 AM CDT Anesthesia Evaluation ROS/Med Hx No history of anesthetic complications Cardiovascular Findings - negative ROS Neuro Findings - negative ROS Pulmonary Findings - negative ROS HENT Findings - negative HENT ROS Skin Findings - negative skin ROS GI/Hepatic/Renal Findings Comments: Fecal impaction, constipation Abdominal pain Nausea Endocrine/Metabolic Findings - negative ROS Genetic/Syndrome Findings - negative genetics/syndromes ROS Hematology/Oncology Findings - negative hematology/oncology ROS Additional Notes Hx migraine headaches Physical Exam Normal systems: cardiovascular, pulmonary and dental Airway Mallampati: II TM distance: >3 FB Neck ROM: full Dental Cardiovascular Rhythm and rate: regular and normal Pulmonary breath sounds clear to auscultation Anesthesia Plan ASA Score: 1 . Plan for MAC - with Intravenous and Propofol induction.Maintenance will be TIVA. Routine analgesia and antiemetics to be used for post-operative care. Anesthetic plan, risks, benefits and alternatives discussed with: patient or medicare sales representative. . 13 yo for EGD/Colonoscopy under MAC/GA backup History & Physical Review History and physical reviewed; no interval change. documented in this encounter Miscellaneous Notes Anesthesia Care Transfer Note - Abdi Bautista APRN CRNA - 03/13/2014 11:03 AM CDT Anesthesia Care Transfer Note Patient: Renay Yancey Transferred to: Recovery Patient vital signs: stable Airway: none documented in this encounter Plan of Treatment Not on filedocumented as of this encounter Visit Diagnoses Not on filedocumented in this encounter Administered Medications Inactive Administered Medications - up to 3 most recent administrations Medication Order MAR Action Action Date Dose Rate Site fentaNYL (SUBLIMAZE) injection Given 03/13/2014 9:49 AM CDT 50 mcg Intravenous, PRN, moderate to severe pain, Starting on Wed03/13/14 at 0949, Anesthesia Intra-op lactated ringers infusion New Bag 03/13/2014 9:44 AM CDT Intravenous, CONTINUOUS PRN, Anesthesia Intra-op, Starting on Wed03/13/14 at 0944, Until Wed03/13/14 at 1103 lidocaine injection 2% (MDV) Given 03/13/2014 9:49 AM CDT 30 mg Intravenous, PRN, Starting on Wed03/13/14 at 0949, Anesthesia Intra-op midazolam (VERSED) injection Given 03/13/2014 9:44 AM CDT 2 mg Intravenous, PRN, anxiety, Starting on Wed03/13/14 at 0944, Anesthesia Intra-op phenylephrine (ROCIO-SYNEPHRINE) injection Given 03/13/2014 10:12 AM CDT 100 mcg dilution PRN, Starting on Wed03/13/14 at 1012, Anesthesia Intra-op propofol (DIPRIVAN) Rate/Dose Change 03/13/2014 10:39 100 mcg/kg/min 27.1 mL/hr injection 10 mg/mL vial AM CDT Intravenous, CONTINUOUS PRN, Starting on Wed03/13/14 at 0949, Anesthesia Intra-op Rate/Dose Change 03/13/2014 9:56 AM CDT 200 mcg/kg/min 54.1 mL/hr New Bag 03/13/2014 9:49 AM CDT 250 mcg/kg/min 67.7 mL/hr propofol (DIPRIVAN) injection 10 mg/mL v ial Given 03/13/2014 9:49 AM CDT 100 mg Intravenous, PRN, Starting on Wed03/13/14 at 0949, Anesthesia Intra-op documented in this encounter Care Teams Fashion Designer Relationship Specialty Start Date End Date Miya Baez PCP - General Family Practice 02/16/14 06/28/19 [facility] [address] [place] [address] documented as of this encounter
--- OUTSIDE RECORDS SUMMARY | 2022-03-04 19:51 | XMS_ITS | Encounter Summary ---
:2000 Author Organization [facility] Address [address] [place] [id number] Care Team Providers Name Role Phone Miya Baez Primary Care Provider Reason for Referral Consultation - Closed Specialty Diagnoses / Procedures Referred By Contact Refer red To Contact Diagnoses Constipation Abdominal pain, other specified site Tanvi Hopson APRN [employer] XX RESIGNED XX [place], [place] [address] Referral ID Status Reason Start Date Expiration Date Visits Requ ested Visits Authorized [id number] Closed 02/21/2014 08/20/2014 1 1 Reason for Visit Reason Comments Consult Dysuria, abdominal pain Encounter Details Date Type Department Care Team Description 02/21/2014 Office Visit [facility] Mynor Espinosa, Abdomi nal pain, other specified site (Primary Dx); [facility] Tanvi Carey APRN Low er back pain; [facility] Urinary urgency; [facility] [address], XX RESIGNED XX Urinary frequency; [facility] 3rd [place], [place] Dysu wilfredo; Floor [address] Constipation [place], [place] [phone] (Work) [phone] Social History Tobacco Use Types Packs/Day Years Used Date Smoking Tobacco: Never Sex Assigned at Date Recorded Not on file documented as of this encounter Last Filed Vital Signs Vital Sign Reading Time Taken Comments Blood Pressure 109/60 02/21/2014 12:38 PM CDT Pulse 95 02/21/2014 12:38 PM CDT Temperature - - Respiratory Rate - - Oxygen Saturation - - Inhaled Oxygen Concentration - - Weight 48.7 kg (107 lb 5.8 oz) 02/21/2014 12:38 PM CDT Height 154.5 cm (5' 0.83) 02/21/2014 12:38 PM CDT Body Mass Index 20.4 02/21/2014 12:38 PM CDT Body Mass Index Percentile 64.58 % 02/21/2014 12:38 PM C DT Growth Chart: [facility] (Girls, 2-20 Years) documented in this encounter Patient Instructions Patient InstructionsStaffTanvi Candelaria, ELLEN - 02/21/2014 2:03 PM CDT Daytime Treatment Care Plan ??? Use the bathroom every 2 - 3 hours, even if you don't feel like you need to go. If you need to go more often than this, that is acceptable. Always use the bathroom first thing in the morning and atbedtime. ??? Pay attention to how you sit, when urinating. For girls, sit up straight or lean slightly forward, with legs spread. Be sure to relax and breathe! ??? Drink at least 8 cups of fluid per day, more on days when it is warm or with increased activity.Taking a water bottle to school is helpful with this. ??? Monitor fiber intake; the goal is a daily, soft to mushy bowel movement. Be sure to drink enoughfluids! ??? We recommend eating yogurts with live active cultures or a probiotic supplement. It helps regulate bowel movements and competes with bad bacteria that cause bladder infections. Examples of probiotics may include: Culturelle, Align, Kyodophilus--take 1 capsule daily. ??? After the bowel clean-out (if needed), start taking Miralax, 1/2 - 2 capfuls one time per day. Adjust the dosing, as necessary, to promote a soft to mushy, daily bowel movement. ??? We will give you a note to take to school, which addresses the need to use the bathroom more frequently, and also allows access to water throughout the day. You may give this to the teacher, or go through the school nurse, if there are issues. If you are still having a problem after contacting theschool nurse, please let us know. ??? Medications: Bowel clean-out, followed by daily Miralax maintenance. (Do not start this until wecall with the x-ray results). If a clean-out is not needed, Peds GI would like to switch back to only Miralax. Increase the dose until stools are daily and soft-formed. If you take too much, you will develop diarrhea, if you take too little, stools will not be soft enough. Bowel Clean Out: The goal is for Renay to get all of the poop out. This typically takes the whole day. It is good to be close to the bathroom. ?? Mix 10 capfuls of Miralax powder in 32oz of Gatorade. Mix this the night before; it should be dissolved and tasteless. ?? The goal is to drink all 32oz within 6 hours; start this in the morning. ?? Take 2 bisacodyl tablets (Dulcolax, 5mg each) orally when you start to drink the Miralax. ?? Take 2 More bisacodyl tablets (Dulcolax, 5mg each) orally after you start drinking the Miralax. What to Expect: Some children will have cramps, diarrhea or vomiting. Make sure you keep well hydrated. By the end of the day you should be passing poop that looks like brown water. After the Clean Out: Maintenance Plan: Start this the day after the clean out. The goal during this phase of treatment is for you to have one soft to mushy poop everyday. ?? Take 1/2 - 2 capfuls of Miralax orally--this medication pulls water into the poop and makes it easier to pass. Take the medication at the same time every day, preferably in the evening so youwill poop in the morning before leaving for school. If there is persistent diarrhea, decrease the Miralax. Call our office if there is no improvement. ??? Diagnostics to be performed: Abdominal x-ray and ultrasound--we will call with the results, likely tomorrow. We will obtain copies of the reports and fax per your request. ??? Labs we are ordering: Urinalysis, urine culture--we will call with any abnormal results, the culture takes up to 48 hours. Blood: ESR, CRP, CBC, CMP, and Celiac screen--we will call with any abnormal results, these can take several days to finalize. ??? Follow-up appointment: Based on results of labs and imaging. See Peds COFFEE MACHINE TECHNICIAN later this week, a Peds GI consult has been ordered and can be scheduled now. You can cancel this visit if the consult is not needed once the labs imaging and COFFEE MACHINE TECHNICIAN consult are completed, if there is no indication for seeing Peds GI based on the information. Obtain records from [facility] and any labs, have these faxed Attn: Tanvi Espinosa [phone] documented in this encounter Progress Notes Tanvi Hopson NP - 02/22/2014 4:14 PM CDT Referred for consultation by: Miya Baez MD CC: Dysuria, abdominal and back pain HPI: (obtained from Mother and patient) Renay is a 13yo female who presents to clinic for dysuria, abdominal and back pain. She is referredby her PCP and accompanied by her mother today. Renay developed lower back pain, suprapubic abdominal pain and dysuria approximately three weeks ago. The pain is described as constant and stabbing; she occasionally has burning with voids. It is rated an 8-9 out of 10, and decreases to a 7 after using Jenks regularly during the day. Her activity has been limited. 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 She has missed multiple days of school or can only tolerate half-days, returning home after the Jenks dose starts to wear off. She hasa decreased energy level and appetite. There is no associated fever, nausea or vomiting. She was initially seen three weeks ago, Mom recalls a urine collection at urgent care for analysis and a urine culture which was negative for growth. Renay returned to her PCP two days later, a urine culture and wet prep at that time were negative. The pain significantly increased later that evening and she was seen at the ED for evaluation and a CT scan was performed. Lab results are not available for review. A CD of images and the CT report is available. Mom recalls being told that some constipation was noted, as well as three areas of inflammation near the colon. She was told this was likely not contributing to the symptoms. Renay has been re-evaluated by her PCP and given pyridium for dysuria, which is s omewhat helpful to decrease the pain during voids. She was seen at [facility] two days ago, with a urology consult pending. The family waited for eight hours and left without evaluation by urology. She was given Ditropan with significant increase in abdominal pain and one episode of vomiting. She was not sent home with a prescription for Ditropan. She was given a prescription for Jenks and is taking this regularly. She was recommended to see Peds Training And Documentation Specialist and is currently scheduled for consultation in two day. Renay virgie-trained by 2yo and without difficulty. She is completely dry during the day and overnight. Her typical voiding schedule prior to the onset of pain was 2-3 times per day at most. She is nowvoiding 10 or more times per day. She does use the bathroom first thing in the morning and at bedtime. She previously would actively hold her urine. She complains of frequency but only has urgency if she wait to use the BR. She does not feliz through voids but will sometimes push to urinate. She does not always feel empty at the end of voids and describes a weak to normal stream. Renay's BMs are up to four times per week. She has a history of constipation and has used Miralax in the past. She will ta ke one capful for hard stools or if she is feeling there are issues with having a BM. She recentlywas instructed to start a new medication, a pink pill. The drug name and dosage are unknown. The stools just prior to onset of pain were very loose. They now vary between loose and hard in consistency.She sometimes complains of pain and feels the need to strain. She has not seen blood on her stool and does not have soiling accidents. Renay's fluid intake is appropriate and she typically drinks 40-60oz of water per day. She eats a diet that is increased in fruits, vegetables and whole grains. Renay met all developmental milestones appropriately and can keep up physically with her peers. Mellhas never had a UTI, hematuria, or unexplained high fever. Renay has severe cramping, urgency and some dysuria during her periods. Mom thinks there may have been one UTI as a young child. The family denies the possibility of any type of abuse. There is a family history of ovarian cancer, PGM passed at 44yo. Mom's history is positive for endometriosis, requiring hysterectomy when Renay was 2yo. There is no family history of disorders. Allergies Allergen Reactions ??? Amoxicillin ??? Augmented Betamethasone Diprop [Betamethasone] ??? Cefzil [Cefprozil] ??? Penicillins Past Medical History Past Medical History Diagnosis Date ??? Rotavirus enteritis 2000, 2002 Past Surgical History Past Surgical History Procedure Laterality Date ??? Tonsillectomy 2001 Social History History Social History Narrative Lives with Mom, Dad and older brother. Recently started 8th grade. Participates in all forms of dance. Family History Family History Problem Relation Age of Onset ??? Gynecology Mother Endometriosis ??? Ovarian Cancer Paternal Grandmother at 44yo ROS: Constitutional: No unexpected change in weight, No weakness, No unexplained fevers, sweats or chills; positive for lethargy Eye: No recent significant change in vision, No eye pain, redness, discharge Ear: No ear pain, No drainage, No tinnitus or vertigo, No recent change in hearing Mouth/Throat: No teeth or gum problems, No bleeding gums, No tongue complaints, No sore throat, No recent change in voice or hoarseness Neck: No lumps or masses, No swollen glands Pulmonary: No chronic cough, sputum, or hemoptysis, No wheezing, No recent change in breathing Cardiovascular: No chest pain, No shortness of breath, No dyspnea on exertion, No cyanosis, No edema, No Heart Murmur Gastrointestinal: No nausea or vomiting, Positive for decreased appetite, bowel changes, suprapubic abdominal pain Musculoskeletal/Extremities: No peripheral edema, No pain, redness or swelling on the joints; positive for lower back pain Hematologic/Lymphatic: No coagulation disorder, No anemia, No abnormal bleeding Skin/Integumentary: Color, texture and temperature normal, No abnormal skin lesions noted, No evidence of rash, No itching Neurologic: Normal development, No seizures, No weakness : See HPI PHYSICAL EXAM: Blood pressure 109/60, pulse 95, height 5' 0.83 (154.5 cm), weight 107 lb 5.8 oz (48.7 kg). Constitutional: Well-appearing, well-developed, no acute distress Psych: Quiet mood/affect and orientation Skin: Normal to inspection and palpation, no lesions or rashes HEENT: Normocephalic, atraumatic. No nasal congestion or discharge. PERRL. Respiratory: Normal respiratory effort. Regular rate. Clear to auscultation. Cardiac: Normal rate. Regular rhythm. Normal S1, S2. No murmurs. Musculoskeletal: Normal strength in all extremities. Gastrointestinal: No masses. No hernias or guarding. Liver and spleen not palpable. No distention orrebound tenderness. Tenderness to moderate palpation RUQ, LUQ and suprapubic region. Back: No CVA tenderness, normal sacral/coccygeal area Neuro: Alert and oriented. Cranial nerves grossly intact. Sensation grossly intact. Able to tip-toe,heel walk and hop on both feet independently and without difficulty. : Mild supropubic tenderness. Simone Stage 4. Normal, no lesions or rashes. Urethra: normal external meatus. Vagina: no abnormal discharge. LABS: Results for orders placed in visit on 02/21/14 XR KUB Narrative: 2 views of the abdomen 02/21/2014 3:19 PM HISTORY: Abdominal pain, lower back pain, dysuria COMPARISON: None available FINDINGS: AP and supine frontal views of the abdomen obtained. Non-obstructed pattern of bowel gas is present, with stool occupying the majority of the left and lower colon. No abnormal abdominal calcifications. Bones are well ossified and demonstrate no focal abnormality. Lower thorax unremarkable. Impression: IMPRESSION: Moderate stool in the left colon and nonobstructive bowel gas pattern. I have personally reviewed the examination and initial interpretation and I agree with the findings. WOOD HURT MD I have personally reviewed the image and initial interpretation and agree with the findings. ROUTINE UA WITH MICROSCOPIC Result Value Range Color Urine Dark Brown Appearance Urine Clear Glucose Urine Negative NEG mg/dL Bilirubin Urine Negative NEG Ketones Urine Negative NEG mg/dL Specific [place] Urine 1.008 1.003 - 1.035 Blood Urine Negative NEG pH Urine 5.5 5.0 - 7.0 pH Protein Albumin Urine Negative NEG mg/dL Urobilinogen mg/dL Normal 0.0 - 2.0 mg/dL Nitrite Urine Positive (*) NEG Leukocyte Esterase Urine Negative NEG Source Unspecified Urine WBC Urine 3 (*) 0 - 2 /HPF RBC Urine <1 0 - 2 /HPF Squamous Epithelial /HPF Urine <1 0 - 1 /HPF Mucous Urine Present (*) NEG /LPF COMPREHENSIVE METABOLIC PANEL Result Value Range Sodium 137 133 - 143 mmol/L Potassium 3.8 3.4 - 5.3 mmol/L Chloride 105 96 - 110 mmol/L Carbon Dioxide 27 20 - 32 mmol/L Anion Gap 5 (*) 6 - 17 mmol/L Glucose 79 70 - 99 mg/dL Urea Nitrogen 14 7 - 19 mg/dL Creatinine 0.64 0.39 - 0.73 mg/dL GFR Estimate Value: GFR not calculated, patient <16 years old. Non GFR Calc GFR Estimate If Black Value: GFR not calculated, patient <16 years old. GFR Calc Calcium 9.4 9.1 - 10.3 mg/dL Bilirubin Total 0.3 0.2 - 1.3 mg/dL Albumin 3.8 (*) 3.9 - 5.1 g/dL Protein Total 7.3 6.8 - 8.8 g/dL Alkaline Phosphatase 168 105 - 420 U/L ALT 15 0 - 50 U/L AST 18 0 - 35 U/L CBC WITH PLATELETS DIFFERENTIAL Result Value Range WBC 6.9 4.0 - 11.0 10e9/L RBC Count 4.09 3.7 - 5.3 10e12/L Hemoglobin 11.6 (*) 11.7 - 15.7 g/dL Hematocrit 35.6 35.0 - 47.0 % MCV 87 77 - 100 fl MCH 28.4 26.5 - 33.0 pg MCHC 32.6 31.5 - 36.5 g/dL RDW 12.1 10.0 - 15.0 % Platelet Count 286 150 - 450 10e9/L Diff Method Automated Method % Neutrophils 66.4 % Lymphocytes 27.3 % Monocytes 5.5 % Eosinophils 0.6 % Basophils 0.1 % Immature Granulocytes 0.1 Absolute Neutrophil 4.6 1.3 - 7.0 10e9/L Absolute Lymphocytes 1.9 1.0 - 5.8 10e9/L Absolute Monoctyes 0.4 0.0 - 1.3 10e9/L Absolute Eosinophils 0.0 0.0 - 0.7 10e9/L Absolute Basophils 0.0 0.0 - 0.2 10e9/L Abs Immature Granulocytes 0.0 0 - 0.4 10e9/L ERYTHROCYTE SEDIMENTATION RATE AUTO Result Value Range Sed Rate 15 0 - 15 mm/h CRP INFLAMMATION Result Value Range CRP Inflammation 3.8 0.0 - 8.0 mg/L TISSUE TRANSGLUTAMINASE NOAH IGA AND IGG Result Value Range Tissue Transglutaminase Antibody IgA Value: <1.0 Interpretation: Negative Tissue Transglutaminase Noah IgG Value: <1.0 Interpretation: Negative IGA Result Value Range IGA 80 70 - 380 mg/dL TSH WITH FREE T4 REFLEX Result Value Range TSH 3.48 0.40 - 4.00 mU/L URINE CULTURE Result Value Range Specimen Description Unspecified Urine Special Requests Specimen received in preservative Culture Micro Culture negative < 24 hours, reincubate Micro Report Status Pending RADIOLOGY: Abdominal Ultrasound: performed February 21, 2014. Images and report personally reviewed. Renal lengths measure: 9.2cm on the left and 9.9cm on the right. This is within 1SD of normal. Normal length for age is 9.79+/-0.75cm. There is normal cortical thickness and echotexture, with no evidence of hydronephrosis, bilaterally.Gallbladder, spleen, pancreas, liver WNL. KUB: performed February 21, 2014. Images and report personally reviewed. Non-obstructive bowel gas pattern, normal osseous structures. No abnormal calcifications. Moderate stool in descending and sigmoid colon. ASSESSMENT: Abdominal Pain Back Pain, Lower Urinary Urgency Urinary Frequency Dysuria Constipation PLAN: Abdominal Pain Back Pain, Lower Dysuria Per report, Renay had two urine cultures performed in the past three weeks, which have been negative for infection. Her previous lab results are not available for review today. Given her history and symptoms, we will repeat a urinalysis and culture today. We will add additional bloodwork as recommended by [facility], who would like to see Renay in consultation for abdominal pain. We will call with anyabnormal results. We will also obtain a complete abdominal ultrasound and call the family with the results, once available. The family has requested the results to be faxed, given that Renay has an appointment with the pediatric business development in two days. Addendum: Abdominal ultrasound WNL, urinalysis positive for nitrites, negative for blood, protein, leukocyte esterace. Urine micro positive for 3 WBC/HPF, negative for blood and bacteria. Urine culturenegative at 24hrs, awaiting final results. Celiac screen, IgA, TSH, CRP, ESR and CBC values WNL. CMP: Anion at 5, Albumin at 3.8, all other values WNL. Urinary Urgency Urinary Frequency Renay will begin regular voids, every 2-3 hours whether or not she feels the urge to go, more oftenif necessary. She will void first thing in the AM and always at bedtime. A note for school was givento the family. If the frequency resolves, Renay will use the BR regularly during the day and avoid holding her urine. She will increase her fluid intake, to decrease any irritation and flush bacteria from the bladder. She will relax in the BR, allowing her bladder time to properly empty. She will avoid pushing her urine out. Constipation We discussed how constipation can exacerbate symptoms and can contribute to abdominal pain. Renay has been referred to Peds GI consultation. The have recommend bloodwork, which will be collected today. She will increase her fluid intake to at least 8 cups per day. Mom will monitor fiber intake andoffer fiber- rich foods. We recommend yogurts with live active cultures or a daily probiotic supplement to promote GI regularity. We will obtain a KUB today, to assess the need for bowel clean-out. If needed, she will perform the bowel clean-out, followed by daily Miralax, titrated to effect. Her goal is one SF-mushy BM per day, free from pain and the need to strain. Addendum: KUB positive for significant stool, begin bowel clean-out, followed by daily Miralax maintenance. Renay will begin with bowel clean-out, followed by Miralax maintenance. ?? Mix 10 capfuls of Miralax powder in 32oz of Gatorade. Mix the medication the night before and refrigerate. ?? The goal is to drink all 32oz within 6 hours. Start this in the morning. ?? Take 10mg bisacodyl orally when starting the Miralax. ?? Take an additional 10mg bisacodyl orally 4 hours after starting the Miralax. ?? Stop the pink bowel medication now, Maintenance: Start daily Miralax the day after the clean-out, the goal is one soft-mushy BM daily. Give medication at the same time every day. Call the clinic with any questions or concerns regarding dosing. Urology follow-up to be scheduled based on the results of Peds GI and COFFEE MACHINE TECHNICIAN consults. Mom to have records faxed to our office. Others We spent 60 minutes together, with greater than 50% time dedicated to education/counseling. Tanvi Espinosa, MSN, RN, CPNP Pediatric Urology documented in this encounter Nursing Notes Wendy Fountain CMA - 02/21/2014 12:39 PM CDT Chief Complaint Patient presents with ??? Consult Dysuria, abdominal pain Initial BP 109/60 Pulse 95 Ht 5' 0.83 (154.5 cm) Wt 107 lb 5.8 oz (48.7 kg) BMI 20.4 kg/m2 Estimated body mass index is 20.4 kg/(m^2) as calculated from the following: Height as of this encounter: 5' 0.83 (154.5 cm). Weight as of this encounter: 107 lb 5.8 oz (48.7 kg). BP completed using cuff size: sumaya Fountain CMA documented in this encounter Plan of Treatment Scheduled Referrals Name Type Priority Associated Diagnoses Order S chedule GI EVALUATION PEDS Referral Routine Constipation Ordered: 02/21/2014 REFERRAL Abdominal Pain, Other Specified Site documented as of this encounter Procedures Procedure Name Priority Date/Time Associated Comments Diagnosis XR KUB Routine 02/21/2014 3:27 Abdominal Pain, Results f or this PM CDT Other Specified procedure ar e in Site the results Lower back pain section. Dysuria URINE CULTURE Routine 02/21/2014 2:57 Abdominal Pain, Results for this PM CDT Other Specified procedure ar e in Site the results Lower back pain section. Dysuria ROUTINE UA WITH Routine 02/21/2014 2:56 Abdominal Pain, Result s for this MICROSCOPIC PM CDT Other Specified procedure ar e in Site the results Lower back pain section. Dysuria CBC WITH PLATELETS & Routine 02/21/2014 2:53 Abdominal Pain, R esults for this DIFFERENTIAL PM CDT Other Specified procedure ar e in Site the results Lower back pain section. Dysuria TSH WITH FREE T4 REFLEX Routine 02/21/2014 2:53 Abdominal Pain , Results for this PM CDT Other Specified procedure ar e in Site the results section. TISSUE TRANSGLUTAMINASE Routine 02/21/2014 2:53 Abdominal Pain , Results for this NOAH IGA AND IGG PM CDT Other Specified procedure are in Site the results Lower back pain section. Dysuria IGA Routine 02/21/2014 2:53 Abdominal Pain, Results f or this PM CDT Other Specified procedure ar e in Site the results Lower back pain section. Dysuria ERYTHROCYTE Routine 02/21/2014 2:53 Abdominal Pain, Results f or this SEDIMENTATION RATE AUTO PM CDT Other Specified p rocedure are in Site the results Lower back pain section. Dysuria CRP INFLAMMATION Routine 02/21/2014 2:53 Abdominal Pain, Resul ts for this PM CDT Other Specified procedure ar e in Site the results Lower back pain section. Dysuria COMPREHENSIVE METABOLIC Routine 02/21/2014 2:53 Abdominal Pain , Results for this PANEL PM CDT Other Specified procedure ar e in Site the results Lower back pain section. Dysuria documented in this encounter Results X-ray KUB (02/21/2014 3:27 PM CDT) Anatomical Region Laterality Modality Abdomen/Pelvis Other Specimen (Source) Anatomical Collection Method Collection Time Re ceived Time Location / / Volume Laterality 02/21/2014 3:27 PM CDT Impressions 02/21/2014 3:51 PM CDT IMPRESSION: Moderate stool in the left colon and nonobstructive bowel gas pattern. I have personally reviewed the examinati on and initial interpretation and I agree with the findings. WOOD HURT MD I have personally reviewed the image and initial interpretation and agree with the findings. Narrative 02/21/2014 3:51 PM CDT 2 views of the abdomen ?? 02/21/2014 3:19 PM ?? HISTORY: Abdominal pain, lower back pain , dysuria COMPARISON: None available FINDINGS: AP and supine frontal views of the abdomen obtained. Non-obstructed pattern of bowel gas is p resent, with stool occupying the majority of the left and lower colon . No abnormal abdominal calcifications. Bones are well ossified and demonstrate no focal abnormality. Lower thorax unremarkable. Procedure Note Wood Hurt MD - 02/21/2014Form atting of this note might be different from the original. 2 views of the abdomen 02/21/2014 3:19 PM HISTORY: Abdominal pain, lower back pain , dysuria COMPARISON: None available FINDINGS: AP and supine frontal views of the abdomen obtained. Non-obstructed pattern of bowel gas is p resent, with stool occupying the majority of the left and lower colon . No abnormal abdominal calcifications. Bones are well ossified and demonstrate no focal abnormality. Lower thorax unremarkable. IMPRESSION IMPRESSION: Moderate stool in the left c olon and nonobstructive bowel gas pattern. I have personally reviewed the examinati on and initial interpretation and I agree with the findings. WOOD HURT MD I have personally reviewed the image and initial interpretation and agree with the findings. Tanvi Espinosa APRN [facility] IMG DIAGNOSTIC IM AGING ORDERABLES Urine culture - Midstream culture w/sensitivity (02/21/2014 2:57 PM CDT) Component Value Ref Test Analysis Performed At [facility] Range Method Time Signature Specimen Unspecified [facility] Description Urine [facility] Special Specimen [facility] Requests received in MICROBIOLOGY preservative Culture Micro No growth [facility] MICROBIOLOGY Micro Report FINAL [facility] Status 02/23/2014 MICROBIOLOGY Specimen Anatomical Collection Method Collection Time Receive d Time (Source) Location / / Volume Laterality Urine specimen 02/21/2014 2:57 PM 014 3:57 (specimen) CDT PM CDT Tanvi Espinosa APRN [facility] - MICRO GENER AL ORDERABLES Performing Organization Address City/State/ZIP Code Phon e Number [facility] [address] [facility] MICROBIOLOGY (ABNORMAL) Routine UA with microscopic - No culture (02/21/2014 2:56 PM CDT) Component Value Ref Test Analysis Performed At [facility] Couple Range Method Time Signature Color Urine Dark Brown [facility] Appearance Urine Clear [facility] Glucose Urine Negative NEG [facility] mg/dL [facility] Bilirubin Urine Negative NEG [facility] Ketones Urine Negative NEG [facility] mg/dL [facility] Specific [place] 1.008 1.003 - [facility] Urine 1.035 [facility] Blood Urine Negative NEG [facility] pH Urine 5.5 5.0 - [facility] 7.0 pH [facility] Protein Albumin Negative NEG [facility] Urine mg/dL [facility] Urobilinogen Normal 0.0 - [facility] mg/dL 2.0 [facility] mg/dL LAB Nitrite Urine Positive (A) NEG [facility] Leukocyte Negative NEG [facility] Esterase Urine [facility] Source Unspecified [facility] WBC Urine 3 (H) 0 - 2 [facility] /HPF [facility] RBC Urine <1 0 - 2 [facility] /HPF [facility] Squamous <1 0 - 1 [facility] Epithelial /HPF /HPF [facility] U[facility] Mucous Urine Present (A) NEG /LPF [facility] LAB Specimen Anatomical Collection Method Collection Time Receive d Time (Source) Location / / Volume Laterality Urine specimen 02/21/2014 2:56 PM 014 3:56 (specimen) CDT PM CDT Tanvi Espinosa APRN, CNP LAB - URINE ORDER [facility] Performing Organization Address City/[facility]/ZIP Code Phon e Number [address] [id number] [facility] LAB [facility] TSH with free T4 reflex (02/21/2014 2:53 PM CDT) athologist Signature TSH 3.48 0.40 - 4.00 [facility] mU/L LAB Comment: Effective 12/13/2013, the reference range for this assay has changed to reflect new instrumentation/methodology. Specimen Anatomical Collection Method Collection Time Receive d Time (Source) Location / / Volume Laterality 02/21/2014 2:53 PM 4 2:56 CDT PM CDT Tanvi Espinosa APRN, CNP LAB - BLOOD ORDER [facility]AR[facility]AT Performing Organization Address City/[facility]/ZIP Code Phon e Number [address] [phone] [facility] LAB IgA (02/21/2014 2:53 PM CDT) athologist Signature IGA 80 70 - 380 [facility] mg/dL [place] [facility] Specimen Anatomical Collection Method Collection Time Receive d Time (Source) Location / / Volume Laterality Blood specimen 02/21/2014 2:53 PM 014 2:56 (specimen) CDT PM CDT Tanvi Espinosa APRN, CNP LAB - BLOOD ORDER [place]ARHAT Performing Organization Address City/[facility]/ZIP Code Phon e Number [facility] [address] [place] [address] [facility] Tissue transglutaminase noah IgA and IgG (02/21/2014 2:53 PM CDT) [facility] gist Method Time Signature Tissue <1.0 U/mL [facility] Transglutaminase Interpretation: ??Negative [facility] Tissue <1.0 U/mL [facility] Transglutaminase Noah Interpretation: ??Negative [place] [facility] Specimen Anatomical Collection Method Collection Time Receive d Time (Source) Location / / Volume Laterality Blood specimen 02/21/2014 2:53 PM 014 2:56 (specimen) CDT PM CDT Tanvi Espinosa APRN [facility] LAB - BLOOD ORDER [place]ARHAT Performing Organization Address City/State/ZIP Code Phon e Number [facility] [address] [place] [address] [facility] CRP inflammation (02/21/2014 2:53 PM CDT) athologist Signature CRP Inflammation 3.8 0.0 - 8.0 [facility] mg/L [facility] Specimen Anatomical Collection Method Collection Time Receive d Time (Source) Location / / Volume Laterality Blood specimen 02/21/2014 2:53 PM 014 2:56 (specimen) CDT PM CDT Tanvi Espinosa APRN, CNP LAB - BLOOD ORDER [place] Performing Organization Address City/State/ZIP Code Phon e Number [address] [id number] [facility] LAB Erythrocyte sedimentation rate auto (02/21/2014 2:53 PM CDT) athologist Signature Sed Rate 15 0 - 15 mm/h [facility] LAB Specimen Anatomical Collection Method Collection Time Receive d Time (Source) Location / / Volume Laterality Blood specimen 02/21/2014 2:53 PM 014 2:56 (specimen) CDT PM CDT Tanvi Espinosa APRN, CNP LAB - BLOOD ORDER FARHAT Performing Organization Address City/[facility]/ZIP Code Phon e Number [id number] [place] [address] LAB (ABNORMAL) CBC with platelets differential (02/21/2014 2:53 PM CDT) [facility] Method Time Signature WBC 6.9 4.0 - [facility] 11.0 [place] 10e9/L LAB RBC Count 4.09 3.7 - 5.3 [facility] 10e12/L [facility] Hemoglobin 11.6 (L) 11.7 - [facility] 15.7 g/dL [facility] Hematocrit 35.6 35.0 - [facility] 47.0 % [facility] MCV 87 77 - 100 [facility] fl [facility] MCH 28.4 26.5 - [facility] 33.0 pg [facility] MCHC 32.6 31.5 - [facility] 36.5 g/dL [facility] RDW 12.1 10.0 - [facility] 15.0 % [facility] Platelet Count 286 150 - 450 [facility] 10e9/L [facility] Diff Method Automated [facility] Method [facility] % Neutrophils 66.4 % [facility] % Lymphocytes 27.3 % [facility] % Monocytes 5.5 % [facility] % Eosinophils 0.6 % [facility] % Basophils 0.1 % [facility] % Immature 0.1 % [facility] Granulocytes [facility] Absolute 4.6 1.3 - 7.0 [facility] Neutrophil 10e9/L [facility] Absolute 1.9 1.0 - 5.8 [facility] Lymphocytes 10e9/L [facility] Absolute 0.4 0.0 - 1.3 [facility] Monocytes 10e9/L [facility] Absolute 0.0 0.0 - 0.7 [facility] Eosinophils 10e9/L [facility] Absolute 0.0 0.0 - 0.2 [facility] Basophils 10e9/L [facility] Abs Immature 0.0 0 - 0.4 [facility] Granulocytes 10e9/L [facility] Specimen Anatomical Collection Method Collection Time Receive d Time (Source) Location / / Volume Laterality Blood specimen 02/21/2014 2:53 PM 014 2:56 (specimen) CDT PM CDT aTnvi Espinosa APRN [facility] LAB - BLOOD ORDER [place]ARHAT Performing Organization Address City/State/ZIP Code Phon e Number [facility] [address] [place] [address] [facility] (ABNORMAL) Comprehensive metabolic panel (02/21/2014 2:53 PM CDT) athologist Signature Sodium 137 133 - 143 [facility] mmol/L LAB Potassium 3.8 3.4 - 5.3 [facility] mmol/L LAB Chloride 105 96 - 110 [facility] [place] mmol/L LAB Carbon Dioxide 27 20 - 32 [facility] [place] mmol/L LAB Anion Gap 5 (L) 6 - 17 [facility] [place] mmol/L LAB Glucose 79 70 - 99 [facility] mg/dL LAB Comment: Effective 12/13/2013, the reference range for this assay has changed to reflect new instrumentation/methodology. Urea Nitrogen 14 7 - 19 mg/dL [facility] Comment: Effective 12/13/2013, the reference range for this assay has changed to reflect new instrumentation/methodology. Creatinine 0.64 0.39 - 0.73 mg/dL [facility] LAB GFR Estimate GFR not calculated, patient <16 years old. mL/min/1.7m2 [facility] LAB Non GFR Calc GFR Estimate If Black GFR not calculated, patient <16 years old. mL/m in/1.7m2 [facility] LAB GFR Calc Calcium 9.4 9.1 - 10.3 mg/dL [facility] Comment: Effective 12/13/2013, the reference range for this assay has changed to reflect new instrumentation/methodology. Bilirubin Total 0.3 0.2 - 1.3 mg/dL [facility] LAB Albumin 3.8 (L) 3.9 - 5.1 g/dL [facility] Protein Total 7.3 6.8 - 8.8 g/dL [facility] LAB Alkaline Phosphatase 168 105 - 420 U/L [facility] ALT 15 0 - 50 U/L [facility] AST 18 0 - 35 U/L [facility] LAB Specimen Anatomical Collection Method Collection Time Receive d Time (Source) Location / / Volume Laterality Blood specimen 02/21/2014 2:53 PM 014 2:56 (specimen) CDT PM CDT Tanvi Espinosa APRN [facility] LAB - BLOOD ORDER [facility]ARHAT Performing Organization Address City/State/ZIP Code Phon e Number [facility] [phone] [place] [address] [facility] documented in this encounter Visit Diagnoses Diagnosis Abdominal pain, other specified site - P rimary Lower back pain Lumbago Urinary urgency Urgency of urination Urinary frequency Dysuria Constipation Unspecified constipation documented in this encounter Care Teams Setter Induction Heating Equipment Relationship Specialty Start Date End Date Miya Baez PCP - General Family Practice 02/16/14 06/28/19 [facility] [id number] [facility] [place] [address] documented as of this encounter
--- OUTSIDE RECORDS SUMMARY | 2022-03-04 19:51 | XMS_ITS | Encounter Summary ---
:2000 Author Organization [place] Address [address] [facility] [place] [address] Care Team Providers Name Role Phone Miya Baez Primary Care Provider Encounter Details Date Type Department Care Team Description 03/13/2014 Surgery [facility] Endoscopy Elke Burris, Gastroscopy (EGD) with [address]AR[address] CULLEN MD biopsies, [place] [address] with bio psies, Procedure done in Peds Se dation w/ general anesthe juana Surgery Details Date/Time Status Location OR Service Patient Case Class Case Tr auma Class Type Case? 03/13/14 Posted [facility] PEDS GI Gastroenterology Outpatient Special 10:15 AM Peds Procedure Out of OR 01 Panel 1 Procedure [facility]RB Anes Op Region Wound Class Commen ts Gastroscopy (EGD) N/A General Mouth II-Clean Contamina viola Gastroscopy (EGD) with biopsies, with biops ies, Colonoscopy with Colonosc opy with biopsies, Procedure biops ies, done in Peds Sedation Pro cedure done in w/ general anesthesia Ped s Sedation w/ general anesth esia Procedure done in N/A General Rectum II-Clean Contamina viola Procedure done in Peds Sedation w/ Peds Sed ation w/ general anesthesia genera l anesthesia Surgeon Surgeon Role Service Panel Elke Burris MD Primary Gastroenterology 1 Cami Christopher MD Assisting 1 documented in this encounter Social History Tobacco Use Types Packs/Day Years Used Date Smoking Tobacco: Never Sex Assigned at Date Recorded Not on file documented as of this encounter Last Filed Vital Signs Vital Sign Reading Time Taken Comments Blood Pressure 101/61 03/13/2014 12:00 PM CDT Pulse 98 03/13/2014 12:00 PM CDT Temperature 35.9 ??C (96.6 ??F) 03/13/2014 11:00 AM CDT Respiratory Rate 18 03/13/2014 12:00 PM CDT Oxygen Saturation 99% 03/13/2014 12:15 PM CDT Inhaled Oxygen Concentration - - Weight 45.1 kg (99 lb 6.8 oz) 03/13/2014 8:36 AM CDT Height - - Body Mass Index 18.68 03/09/2014 8:01 AM CDT Body Mass Index Percentile 41.95 % 03/13/2014 8:36 AM CD T Growth Chart: [facility] (Girls, 2-20 Years) documented in this encounter Discharge Instructions Discharge InstructionsSandy Giron, RN - 03/13/2014 11:[address] Winslow or Dr. Burris Discharge Instructions after Upper Endoscopy (EGD) An upper endoscopy is a test that shows the inside of upper gastrointestinal (GI) tract. This includes the esophagus, stomach, and duodenum (first part of the small intestine). The doctor can perform abiopsy (take tissue samples), check for problems, or remove objects. Activity and Diet You were given medicine for pain during the procedure. You may be dizzy or sleepy. For 24 hours: ??? Do not drive or use heavy equipment. ??? Do not make important decisions. ??? You may return to your regular diet. ??? You may return to school or daycare the day following the procedure. Discomfort You may have a sore throat for 2 to 3 days. It may help to: ??? Avoid hot liquids for 24 hours. ??? Use sore throat lozenges. ??? Gargle as needed with salt water up to 4 times a day. Mix 1 cup of warm water with 1 teaspoon ofsalt. Do not swallow. If your esophagus was dilated (opened) or banded during the exam: ??? Drink only cool liquids for the rest of the day. Eat a soft diet for the next few days. ??? You may have a sore chest for 2 to 3 days. ??? You may take Tylenol (acetaminophen) for pain unless your doctor has told you not to. Do not take aspirin or ibuprofen (Advil, Motrin) or other NSAIDS (Anti-inflammatory drugs) until your doctor gives you permission. Follow-up ??? If we took small tissue samples for study and if you do not have a follow-up visit scheduled, call your provider???s office in 2 weeks for the results. When to call us: Problems are rare. Call right away if you have: ??? Unusual throat pain or trouble swallowing. ??? Unusual pain in belly or chest that is not relieved by belching or passing air. ??? Black stools (tar-like looking bowel movement). ??? Temperature above 101?? F. If you vomit blood or have severe pain, go to an emergency room If you have questions, call: Wednesday to Wednesday, 7 a.m. to 4:30 p.m.: Endoscopy: [phone] (We may have to call you back) After hours: Hospital: [phone] (Ask for the Pediatric GI fellow welder setter electron beam machine) REV. 08/2013 Home Instructions for Your Child after Sedation Today your child received (medicine): Propofol, Fentenyl and Versed Please keep this form with your health records Your child may be more sleepy and irritable today than normal. Wake your child up every 1 to 11/2 hours during the day. (This way, both you and your child will sleep through the night.) Also, an adult should stay with your child for the rest of the day. The medicine may make the child dizzy. Avoid activities that require balance (bike riding, skating, climbing stairs, walking). Remember: ?? When your child wants to eat again, start with liquids (juice, soda pop, Popsicles). If your child feels well enough, you may try a regular diet. It is best to offer light meals for the first 24 hours. ?? If your child has nausea (feels sick to the stomach) or vomiting (throws up), give small amounts of clear liquids (7-Up, Sprite, apple juice or broth). Fluids are more important than food until yourchild is feeling better. ?? Wait 24 hours before giving medicine that contains alcohol. This includes liquid cold, cough and allergy medicines (Robitussin, Vicks Formula 44 for children, Benadryl, Chlor-Trimeton). ?? If you will leave your child with a plain goods hemmer, give the sitter a copy of these instructions. Call your doctor if: ?? You have questions about the test results. ?? Your child vomits (throws up) more than two times. ?? Your child is very fussy or irritable. ?? You have trouble waking your child. ?? If your child has trouble breathing, call 911. If you have any questions or concerns, please call: Pediatric Sedation Unit [phone] Pediatric clinic [phone] [facility] [phone] (ask for the Peds GI doctor welder setter electron beam machine) Emergency department [phone] [facility] toll-free number (Wednesday--Wednesday, 8 a.m. to 4:30 p.m.) I understand these instructions. I have all of my personal belongings. documented in this encounter Medications at Time of [...] 6 hours documented as of this encounter Progress Notes Sandy Giron RN - 03/13/2014 12:31 PM CDT Awake and alert. Eating and drinking without issue. VS WNL. No c/o nausea. Abdominal pain present which has been ongoing and the reason for the scopes today. Warm packs given for comfort and relief. Discharge paperwork reviewed with parents. Sandy Giron RN - 03/13/2014 10:19 AM CDT Admitted to peds sedation with parents for upper endoscopy and colonoscopy. BP elevated. Anxious upon arrival. Otherwise VS WNL. Alert and oriented. Heart sounds normal. [place], warm, well perfused. Breath sounds equal and clear. Abdomen soft and flat. Appropriately NPO. No obvious skin lesions present.CFL in to assess and help Holly through the morning. Assessed by anesthesia. Consent obtained by Dr. Burris. Transported to procedure room in [facility]. documented in this encounter Plan of Treatment Not on filedocumented as of this encounter Procedures Procedure Name Priority Date/Time Associated Diagnosis Comme nts SURGICAL PATHOLOGY Routine 03/13/2014 10:04 Resul ts for this EXAM AM CDT procedure are i n the results section. DISACCHARIDASE PANEL STAT 03/13/2014 10:01 Res ults for this AM CDT procedure are i n the results section. COLONOSCOPY Routine 03/13/2014 9:39 Results for this AM CDT procedure are i n the results section. UPPER GI ENDOSCOPY Routine 03/13/2014 9:36 Result s for this AM CDT procedure are i n the results section. COLONOSCOPY, WITH 03/13/2014 9:27 Constipation with POLYPECTOMY AND BIOPSY AM CDT history of fecal impaction, Abdominal Pain, CT shows inflammation near colon ESOPHAGOGASTRODUODENOS 03/13/2014 9:27 Constipation wi th COPY, WITH BIOPSY AM CDT history of fecal impaction, Abdominal Pain, CT shows inflammation near colon HCG QUALITATIVE URINE Routine 03/13/2014 8:35 Res ults for this AM CDT procedure are i n the results section. documented in this encounter Results Surgical pathology exam (03/13/2014 10:04 AM CDT) Component Value Ref Test Analysis Performed At [facility] Method Time Signature Copath Report Patient Name: HOLLY YANCEY MR#: [id number] Specimen #: [id number] Collected: 03/13/2014 Received: 03/13/2014 Reported: 03/16/2014 15:17 Ordering Phy(s): ELKE BURRIS SPECIMEN(S): A: Duodenal biopsy B: Gastric antrum biopsy C: Esophageal biopsy, distal D: Esophageal biopsy, proximal E: Ileum biopsy, terminal F: Colon biopsy G: Rectosigmoid biopsy FINAL DIAGNOSIS: A. Duodenum, biopsies: - Duodenal mucosa with no diagnostic alteration. B. Gastric antrum, biopsies: - Single focus of acute gastritis. C. Esophagus, distal, biopsies: - Esophageal and gastric mucosa with no diagnostic alteratio n. D. Esophagus, proximal, biopsies: - Esophageal mucosa with no diagnostic alteration. E. Terminal ileum, biopsies: Ileal mucosa with no diagnostic alteration. F. Random colon, biopsies: - Colonic mucosa with no diagnostic alteration. G. Rectosigmoid, biopsies: - Colorectal mucosa with no diagnostic alteration. I have personally reviewed all specimens and or slides, incl uding the listed special stains, and used them with my medical judgeme nt to determine the final diagnosis. Electronically signed out by: Nia Ball M.D., [facility] CLINICAL HISTORY: The patient is a 13 year old girl with abdominal pain, lower back pain, weight loss, hypoalbuminemia, and right lower quadrant tende rness. Endoscopic findings are not available in the electronic [facility] record. GROSS: A: The specimen is received in formalin with proper patient' s identification, labeled duodenum biopsy and consists of si x patrick soft tissue fragments measuring in aggregate 1.6 x 0.4 x 0.2 cm. Entirely submitted in one cassette. B: The specimen is received in formalin with proper patient' s identification, labeled gastric antral biopsy and consists of five patrick soft tissue fragments measuring in aggregate 1.3 x 0.3 x 0.2 cm. Entirely submitted in one cassette. C: The specimen is received in formalin with proper patient' s identification, labeled distal esophageal biopsy and consi sts of four pale patrick soft tissue fragments measuring in aggregate 1.2 x 0.3 x 0.1 cm. Entirely submitted in one cassette. D: The specimen is received in formalin with proper patient' s identification, labeled proximal esophageal biopsy and con sists of two pale patrick soft tissue fragments measuring 0.3 cm and 0.2 cm i n maximum dimension. Entirely submitted in one cassette. E: The specimen is received in formalin with proper patient' s identification, labeled terminal ileum biopsy and consists of four patrick soft tissue fragments measuring in aggregate 1.2 x 0.3 x 0.2 cm. Entirely submitted in one cassette. F: The specimen is received in formalin with proper patient' s identification, labeled random colon biopsy and consists o f multiple patrick soft tissue fragments measuring in aggregate 1.6 x 0.5 x 0.2 cm. Entirely submitted in one cassette. G. The specimen is received in formalin with proper patient' s identification, labeled rectosigmoid biopsy. ??The specime n consists of six patrick soft tissue fragments measuring in aggregate 1.6 x 0 .4 x 0.2 cm. Entirely submitted in one cassette. (Dictated by: Enedina flynn 03/13/2014 12:44 PM) MICROSCOPIC: A. Multiple H&E sections of a single tissue block are examin ed. Sections show duodenal mucosa with preserved architecture. ? ?The villi are thin and delicate, with well preserved brush borders and goblet cells. ??There are sparse intraepithelial lymphocytes. ??The lamina propria contains the usual sparse infiltrate of lymphocytes and plasma cells. ??There is no acute or granulomatous inflammation. B. Multiple H&E stained step sections of a single tissue blo ck are examined. ??Sections show gastric antral mucosa. ??The archi tecture is preserved, without foveolar hyperplasia. ??The glands are cl osely packed and the lamina propria contains the usual sparse infiltrate of lymphocytes and occasional plasma cells and eosinophils. ??I n one biopsy fragment, there is a single focus of neutrophilic inflammati on involving two glands. ??There is no granulomatous inflammation. ??No o rganisms suggestive of H. pylori are seen. C and D. Multiple H&E stained step sections are examined for a single tissue block for each part. ??Sections show nonkeratinizing stratified squamous epithelium. ??Part C contains an additional piece o f gastric mucosa with preserved architecture and no diagnostic abnorma lity. ??The architecture of the esophageal mucosa is preserved and there is no basal hyperplasia. ??There are occasional intraepithelial lymphocy sherman, but no intraepithelial eosinophils or neutrophils are identified. ? ?There is no acute or granulomatous inflammation. E. Multiple H&E stained step sections of a single tissue blo ck are examined. ??Sections show ileal mucosa with preserved felecia ecture. ??The villi are thin and delicate. ??The epithelium is well preser maykel. ??There are occasional lymphoid aggregates within the lamina propria , as well as the usual sparse infiltrate of lymphocytes and plasma cells. ??There is no acute or granulomatous inflammation. F and G. Multiple H&E stained step sections are examined. ?? Sections show colonic mucosa with well preserved architecture. ??The crypts are regular and goblet cells are well preserved. ??The lamina pr opria contains the usual sparse infiltrate of lymphocytes and plas ma cells, which is slightly denser near the surface. ??There is no acu te or granulomatous inflammation. CPT Codes: A: 32901-MV2 B: 92915-OU2 C: 33159-FA0 D: 16354-GT1 E: 69205-VD3 F: 46335-HN6 68876-RE9 TESTING LAB LOCATION: [address] [address] COLLECTION SITE: Client: [facility] Location: URPSED (B) Specimen Anatomical Collection Method Collection Time Receive d Time (Source) Location / / Volume Laterality 03/13/2014 10:04 03/13/2014 AM CDT 11:28 AM CDT Elke Burris MD LAB - BEAKER AP Performing Organization Address City/[facility] Code Phon e Number COPATH Disaccharidase panel (03/13/2014 10:01 AM CDT) [facility] Method Time Signature Lab Scanned DISACCARIDASE MISYS Result PANEL-Scanned Specimen Anatomical Collection Method Collection Time Receive d Time (Source) Location / / Volume Laterality 03/13/2014 10:01 03/13/2014 AM CDT 10:15 AM CDT Elke Burris MD LAB - COPATH SPECIAL DIAG OR DERABLES Performing Organization Address City/[facility] Code Phon e Number MISYS COLONOSCOPY (03/13/2014 9:39 AM CDT) Component Value Ref Test Analysis Performed At [facility] Method Time Signature COLONOSCOPY Amplatz RADIOLOGY Endoscopy Department-[facility] RESULTS Patient Name: Holly Yancey ? Procedure Da te: 03/13/2014 9:39 AM ? Accou nt Number: [id number] Date of : 2000 ? Admit Type: Outp atient Age: 13 ? Room: P eds sed Gender: Female ?Note Statu s: Finalized Attending MD: Elke Burris MD ? Procedure: ? Colonoscopy Indications: ? Abdominal pain in the right lower q uadrant, ? Constipation, Weight loss Providers: ? Alexandro Burris MD, Arabella Morley RN, Cherry Marks, ? RN, Cami Christopher MD Patient Profile: ? 13yo female with RLQ abdo carlos pain, constipation, and ? weight loss Referring : ?Miya Baez MD Medicines: ? General Anesthesia Complications: ? No immediate complications. Procedure: ? Pre-Anesthesia Assessment: ? - Prior to the procedure, a History and Physical was ? performed, and patient medications and allergies were ? reviewed. The patient is unable to give consent ? secondary to the patient being a minor. The risks and ? benefits of the procedure and the sedation options and ? risks were discussed with the patient's mother and ? father. All questions were answered and informed consent ? was obtained. Patient identification and proposed ? procedure were verified by the physician, the nurse and ? the anesthesiologist in the endoscopy suite. Mental ? Status Examination: normal. Airway Examination: normal ? oropharyngeal airway and neck mobility. Respiratory ? Examination: clear to auscultation. CV Examination: ? normal. Prophylactic Antibiotics: The patient does not ? require prophylactic antibiotics. Prior Anticoagulants: ? The patient has taken no previous anticoagulant or ? antiplatelet agents. ASA Grade Assessment: I - A normal, ? healthy patient. After reviewing the risks and benefits, ? the patient was deemed in satisfactory condition to ? undergo the procedure. The anesthesia plan was to use ? general anesthesia. Immediately prior to administration ? of medications, the patient was re-assessed for adequacy ? to receive sedatives. The heart rate, respiratory rate, ? oxygen sa turations, blood pressure, adequacy of ? pulmonary ventilation, and response to care were ? monitored throughout the procedure. The physical status ? of the patient was re-assessed after the procedure. ? After obtaining informed consent, the colonoscope was ? passed under direct vision. Throughout the procedure, ? the patie nt's blood pressure, pulse, and oxygen ? saturations were monitored continuously. The Colonoscope ? was introduced through the anus and advanced to the ? terminal ileum. The colonoscopy was performed without ? difficulty. The patient tolerated the procedure well. ? The quality of th e bowel preparation was good. ? Findings: ? Perianal examination was normal. ? The entire examined colon appeared normal. Biop sies were taken with a ? cold forceps for histology. ? The terminal ileum appeared normal. Biopsies were david en with a cold ? forceps for histology. ? Impression: ?- The entire examined colon is nor mal. Biopsied. ? - The examined portion of the ileum was normal. Biopsied. ? - The entire examined colon i s normal. Recommendation: ?- Discharge patient to home (with mimi washington). ? - Soft diet today. ? - Await pathology results. ? Signed electronically by Elke Burris Elke Burris MD 03/30/2014 3:32 PM I was physically present for the entire viewing portion of t he exam. Signature of teaching physician B4c/D4c Cami Christopher MD 03/13/2014 11:24 AM Number of Addenda: 0 Note Initiated On: 03/13/2014 9:39 AM Specimen (Source) Anatomical Collection Method Collection Time Re ceived Time Location / / Volume Laterality 03/13/2014 9:39 AM CDT Miya Baez PROCEDURES Performing Organization Address City/State/ZIP Code Phon e Number RADIOLOGY RESULTS UPPER GI ENDOSCOPY (03/13/2014 9:36 AM CDT) Component Value Ref Test Analysis Performed At [facility] Range Method Time Signature Upper GI Amplatz RADIOLOGY Endoscopy Endoscopy Department-[facility] RESULTS Patient Name: Holly Yancey ? Procedure Da te: 03/13/2014 9:36 AM ? Accou nt Number: [id number] Date of : 2000 ? Admit Type: Outp atient Age: 13 ? Room: P eds sed Gender: Female ?Note Statu s: Finalized Attending MD: Elke Burris MD ? Procedure: ? Upper GI endoscopy Indications: ? Abd ominal pain in the right lower quadrant, Weight loss Providers: ? Al lam Burris MD, Arabella Morley RN, Cami Christopher, ? MD Referring MD: ?Miya Baez MD Medicines: ? General Anesthesia Complications: ? No immediate complications. Procedure: ? Pre-Anesthesia Assessment: ? - Prior to the procedure, a History and Physical was ? performed, and patient medications and allergies were ? reviewed. The patient is unable to give consent ? secondary to the patient being a minor. The risks and ? benefits of the procedure and the sedation options and ? risks were discussed with the patient's mother and ? father. All questions were answered and informed consent ? was obtained. Patient identification and proposed ? procedure were verified by the physician, the nurse and ? the anesthesiologist in the endoscopy suite. Mental ? Status Examination: normal. Airway Examination: normal ? oropharyngeal airway and neck mobility. Respiratory ? Examination: clear to auscultation. CV Examination: ? normal. Prophylactic Antibiotics: The patient does not ? require prophylactic antibiotics. Prior Anticoagulants: ? The patient has taken no previous anticoagulant or ? antiplatelet agents. ASA Grade Assessment: I - A normal, ? healthy patient. After reviewing the risks and benefits, ? the patient was deemed in satisfactory condition to ? undergo the procedure. The anesthesia plan was to use ? general anesthesia. Immediately prior to administration ? of medications, the patient was re-assessed for adequacy ? to receive sedatives. The heart rate, respiratory rate, ? oxygen sa turations, blood pressure, adequacy of ? pulmonary ventilation, and response to care were ? monitored throughout the procedure. The physical status ? of the patient was re-assessed after the procedure. ? After obtaining informed consent, the endoscope was ? passed under direct vision. Throughout the procedure, ? the patie nt's blood pressure, pulse, and oxygen ? saturations were monitored continuously. The Endoscope ? was introduced through the mouth, and advanced to the ? third part of duodenum. The upper GI endoscopy was ? accomplished without difficulty. The patient tolerated ? the procedure well. ? Findings: ? No gross lesions were noted in the entire esophagus. Biopsies were taken ? with a cold forceps for histology. ? No gross lesions were noted in the entire examined stomach. Biopsies ? were obtained with cold forceps for histology. ? No gross lesions were noted in the entire exami phil duodenum. Biopsies ? were taken with a cold forceps for histology. Biops ies were obtained ? with cold forceps for evaluation of disaccharidase de ficiency. ? Impression: ?- No gross lesions in esophagus. B iopsied. ? - No gross lesions in the s tomach. Biopsied. ? - No gross lesions in duodenu m. Biopsied. Recommendation: ?- Discharge patient to home (with mimi washington). ? - Soft diet today. ? - Await pathology results. ? Signed electronically by Elke Burris Elke Burris MD 03/30/2014 3:30 PM I was physically present for the entire viewing portion of t he exam. Signature of teaching physician B4c/D4c Cami Christopher MD 03/13/2014 11:17 AM Number of Addenda: 0 Note Initiated On: 03/13/2014 9:36 AM Specimen (Source) Anatomical Collection Method Collection Time Re ceived Time Location / / Volume Laterality 03/13/2014 9:36 AM CDT Miya Leikanwal PROCEDURES Performing Organization Address City/State/ZIP Code Phon e Number RADIOLOGY RESULTS HCG qualitative urine (03/13/2014 8:35 AM CDT) athologist Signature HCG Qual Urine Negative NEG [facility] LAB Specimen Anatomical Collection Method Collection Time Receive d Time (Source) Location / / Volume Laterality Urine specimen URINE SPECIMEN 03/13/2014 8:35 AM 03/13 8:45 (specimen) OBTAINED BY CLEAN CDT AM CDT CATCH PROCEDURE / Unknown Keith Coe MD LAB - URINE ORDERABLES Performing Organization Address City/[facility]/ZIP Code Phon e Number [facility] [address] [place], [place] [id number] [place] [address] LAB documented in this encounter Visit Diagnoses Not on filedocumented in this encounter Administered Medications Inactive Administered Medications - up to 3 most recent administrations Medication Order MAR Action Action Date Dose Rate Site Lidocaine 1 % injection 0.5-1 mL Given 03/13/2014 9:00 AM CDT 0.2 mLs 0.5-1 mL, Other, ONCE PRN, mild pain with VAD insertion or accessing implanted port, Starting on Wed03/13/14 at 0821, For 1 dose, Do NOT give if patient has a history of allergy to any local anesthetic or any zackary product. Give subcutaneously OR intradermally in divided doses., Pre-procedure documented in this encounter Active and Recently Administered Medications Times are shown in CDT. PRN Medication Order 03/11/2014 03/12/2014 03/13/2014 Lidocaine 1 % injection 0.5-1 mL (COMPLETED) 0900 (Given - Provider: Jagruti Thurman RN) 0.5-1 mL, Other, ONCE PRN, mild pain wit h VAD insertion or accessing implanted port, Starting Wed03/13/14 at 0821, For 1 dose, Do NOT give if patient has a history of allergy to any local anesthetic or any zackary product. Give subcutaneousl y OR intradermally in divided doses., Pre-procedure documented in this encounter Care Teams Hand Edger Relationship Specialty Start Date End Date Miya Baez PCP - General Family Practice 02/16/14 06/28/19 [facility] [address] [facility] [address] documented as of this encounter
--- OUTSIDE RECORDS SUMMARY | 2022-03-04 19:51 | XMS_ITS | Encounter Summary ---
:2000 Author Organization [facility] Address [address] [place] [address] Care Team Providers Name Role Phone Miya Baez Primary Care Provider Reason for Visit Reason Comments Consult Reoccuring abdominal pain, c onstipation Encounter Details Date Type Department Care Team Description 03/09[facility]2014 [facility], other specified site (Primary Dx); Discovery Cammy Alexandra MD Abnormal laboratory test result; Specialty [facility] RLQ abdominal tenderness [address] [facility] [address] [place] [address] Social History Tobacco Use Types Packs/Day Years Used Date Smoking Tobacco: Never Sex Assigned at Date Recorded Not on file documented as of this encounter Last Filed Vital Signs Vital Sign Reading Time Taken Comments Blood Pressure 110/73 03/09/2014 8:01 AM CDT Pulse 117 03/09/2014 8:01 AM CDT Temperature - - Respiratory Rate - - Oxygen Saturation - - Inhaled Oxygen Concentration - - Weight 46.3 kg (102 lb 1.2 oz) 03/09/2014 8:01 AM CDT Height 155.4 cm (5' 1.18) 03/09/2014 8:01 AM CDT Body Mass Index 19.17 03/09/2014 8:01 AM CDT Body Mass Index Percentile 49.05 % 03/09/2014 8:01 AM CD T Growth Chart: CDC (Girls, 2-20 Years) documented in this encounter Progress Notes Marlo Burris MD - 03/09/2014 8:12 AM CDT Pediatric Gastroenterology, Hepatology & Nutrition Outpatient initial consulation Consultation requested by Miya Baez Diagnoses: There is no problem list on file for this patient. HPI: Renay is a 13 year old female with constipation and fecal impaction. According to her mother and the medical records she has abdominal pain. She has been evaluated in Urology and found to have fecal impaction by physical examination and radiograph. A disimpaction with Miralax and dulcolax was rec ommended. According to her mother she has had abdominal pain for the last month. She has seen a surveyor hydrographic and urologist and emergency departments doctors. She was treated with multiple narcotics. She has been taken off narcotics and treated with daily Miralax. She continues to have abdominal pain daily. Her pain is in the lower abdomen. Her pain is made worse by pushing on the stomach, relieved byTramadol and ibuprofen. Hot pads sometimes make the pain better. She has had ultrasounds, CT scan, blood work. She is being treated for endometriosis empirically. She denies any associated symptoms. She has a decreased appetite and has lost five pounds. She is missing a lot of school. The CT scan. LMPlast February 14. Mother reports severe dysmenorrhea. Results for orders placed during the hospital encounter of 02/21/14 US ABDOMEN COMPLETE Narrative: EXAM: Abdominal jxxumybalh21/8/2014 4:53 PM HISTORY: Acute onset abd and back pain, CT imaging shows inflammation near colon; Family hx endometriosis,Abdominal pain, other specified site COMPARISON: none FINDINGS: The visualized aorta and IVC are normal. Pancreas: The partially visualized pancreas appears normal. Liver: The liver measures 14.4 cm in length and demonstrates normal echogenicity without evidence of intrahepatic biliary dilatation or mass. Gall Bladder: The gall bladder appears normal without stones, wall thickening, or pericystic fluid. The wall measures 3 mm. Negative sonographic ta's sign. The common bile duct measures 3 mm. The right kidney measures 9.9 cm in length and demonstrates normal echogenicity without hydronephrosis or mass. The left kidney measures 9.2 cm in length and demonstrates normal echogenicity without hydronephrosis or mass. The spleen measures 7.6 cm and demonstrates normal echogenicity without mass. No ascites. Impression: Impression: Unremarkable abdominal ultrasound. I have personally reviewed the examination and initial interpretation and I agree with the findings. EMILY VILA MD Review of Systems: Negative for the following: Constitutional: unexplained fevers, chills, sweats, fatigue, malaise, anorexia and growth deceleration Eyes: redness, icterus and eye pain HEENT:hearing loss, oral aphthous ulcers and epistaxis Respiratory:negative Cardiac: negative Gastrointestinal: nausea, dysphagia, odynophagia, water brush/regurgitation, reflux and hematemesis,diarrhea, pain on defecation, jaundice, hematochezia and positive abdominal pain, weight loss, constipation, vomiting Genitourinary: negative and dysuria Skin: rash, dryness and pruritus Hematologic: easy bruising, bleeding gums and lymphadenopathy Allergic/Immunologic: recurrent bacterial infections Endocrine: negative Musculoskeletal: arthralgias and joint swelling Neurologic: headaches, coordination problems and gait problems Psychiatric: negative No positive findings other than as noted above Allergies: Amoxicillin; Augmented betamethasone diprop; Cefzil; and Penicillins Prescription Medications as of 03/09/2014 IBUPROFEN PO Take 600 mg by mouth every 6 hours TraMADol HCl (ULTRAM PO) Take 50 mg by mouth every 6 hours MedroxyPROGESTERone Acetate (DEPO-PROVERA IM) Injection every 3 months polyethylene glycol (MIRALAX/GLYCOLAX) powder Take 1/2 - 2 capfuls by mouth daily. Hydrocodone-Acetaminophen (NORCO PO) Phenazopyridine HCl (PYRIDIUM PO) Past Medical History: This patient has no significant past medical history Past Surgical History: This patient has no significant past surgical history Family History: Negative for: Cystic fibrosis, Celiac disease, Crohn's disease, Ulcerative Colitis, Polyposis syndromes, Hepatitis, Other liver disorders, Pancreatitis, GI cancers in young family members, Thyroid disease, Insulin dependent diabetes, Sick contacts and Recent travel history Social History: Lives with mother and father, has no siblings. Stress: denies any, family , parental divorce/separation, housing situation, school, friends, extracuricular activities, siblings and she is missing a lot of school Physical exam: Vital Signes: BP 110/73 Pulse 117 Ht 1.554 m (5' 1.18) Wt 46.3 kg (102 lb 1.2 oz) BMI 19.17kg/m2. (24%ile based on CDC 2-20 Years [id number] data using vitals from 03/09/2014. 38%ile based on CDC 2-20 Years gakqrq-[id number] data using vitals from 03/09/2014. Body mass index is 19.17 kg/(m^2). 49%ile based on CDC 2-20 Years BMI-for-age data using vitals from 03/09/2014.) Constitutional: Healthy, alert and no distress Head: Normocephalic. No masses, lesions, tenderness or abnormalities Neck: Neck supple. EYE: CHELY, EOMI ENT: Ears: Normal position, Nose: No discharge and Mouth: Normal, moist mucous membranes Cardiovascular: Heart: Regular rate and rhythm Respiratory: Lungs clear to auscultation bilaterally. Gastrointestinal: Abdomen:, Soft, Nondistended, Normal bowel sounds, No hepatomegaly, No splenomegaly, tender in RLQ to mild palpation Rectal: Deferred Musculoskeletal: Extremities warm, well perfused. Skin: No suspicious lesions or rashes Neurologic: negative Hematologic/Lymphatic/Immunologic: Normal cervical lymph nodes I personally reviewed results of laboratory evaluation, imaging studies and past medical records that were available during this outpatient visit Assessment and Plan: Renay Yancey has abdominal pain, weight loss, hypoalbuminemia, abnormal CT scan, RLQ tenderness. I recommended stool studies for infectious etiology, EGD/colonoscopy to evaluatefor inflammatory, allergic and infectious causes. Stool occult blood evaluation. I would try to avoid opiate pain control with the question of inflammatory changes on her CT scan, though this study wasnot available for my review today. I did discuss with her mother today that 10-20 percent of patients with colitis will present with constipation rather than diarrhea. I spent greater than 50% of a 60 min visit in discussion of Renay symptoms , differential diagnosis, diagnostic work up, treament , potential side effects and complications and follow up plan Follow up: based on above evaluation Marlo Burris [facility] Patient Care Team: Miya Baez as PCP - General (Family Practice) documented in this encounter Nursing Notes Rachana Munoz LPN - 03/09/2014 8:02 AM CDT Chief Complaint Patient presents with ??? Consult Reoccuring abdominal pain, constipation Initial BP 110/73 Pulse 117 Ht 5' 1.18 (155.4 cm) Wt 102 lb 1.2 oz (46.3 kg) BMI 19.17 kg/m2 Estimated body mass index is 19.17 kg/(m^2) as calculated from the following: Height as of this encounter: 5' 1.18 (155.4 cm). Weight as of this encounter: 102 lb 1.2 oz (46.3 kg). BP completed using cuff size: regular documented in this encounter Plan of Treatment Scheduled Orders Name Type Priority Associated Diagnoses Order S chedule Pita-Operative Procedures Routine Abdominal Pain, Other Orde red: 03/09/2014 Worksheet (Jessica) Specified Site Abnormal laboratory test result RLQ abdominal tenderness documented as of this encounter Visit Diagnoses Diagnosis Abdominal pain, other specified site - P rimary Abnormal laboratory test result Other abnormal clinical finding RLQ abdominal tenderness Abdominal tenderness, right lower quadra nt documented in this encounter Care Teams Formula Mixer Relationship Specialty Start Date End Date Miya Baez PCP - General Family Practice 02/16/14 06/28/[address] [address] documented as of this encounter
--- OUTSIDE RECORDS SUMMARY | 2022-03-04 19:51 | XMS_ITS | Encounter Summary ---
:2000 Author Organization [facility] Address [address] [place] [address] Care Team Providers Name Role Phone Tanvi Mccoy HOOP COILING MACHINE OPERATOR Primary Care Provider [phone] Encounter Details Date Type Department Care Team Description 06/29/2019 Travel Social History Tobacco Use Types Packs/Day Years Used Date Smoking Tobacco: Never Sex Assigned at Date Recorded Not on file documented as of this encounter Plan of Treatment Not on filedocumented as of this encounter Visit Diagnoses Not on filedocumented in this encounter Care Teams Flyer Maker Relationship Specialty Start Date End Date Tanvi Mccoy NP PCP - General Nurse Practitioner - 06/29/19 [facility] [address] [place] [address] documented as of this encounter
--- OUTSIDE RECORDS SUMMARY | 2022-03-04 19:51 | XMS_ITS | Encounter Summary ---
:2000 Author Organization [facility] Address [address] [place] [address]. [place] [address] Care Team Providers Name Role Phone Miya Baez Primary Care Provider Encounter Details Date Type Department Care Team Description 03/13/2014 Hospital Encounter [facility] Elke Rondon, Sedation Observation MD [facility] [place] [address] Social History Tobacco Use Types Packs/Day Years [...] 03/13/2014 8:36 AM CD T Growth Chart: CDC (Girls, 2-20 Years) documented in this encounter Discharge Instructions Discharge InstructionsSandy Giron RN - 03/13/2014 11:[address] Winslow or Dr. Rondon Discharge Instructions after Upper Endoscopy (EGD) An [...] Wednesday, 7 a.m. to 4:30 p.m.: Endoscopy: [phone] (We may have to call you back) After hours: Hospital: [phone] (Ask for the Pediatric GI fellow bed control specialist) REV. 08/2013 Home Instructions for Your Child [...] you will leave your child with a trailer truck driver, give the sitter a copy of these [...] or concerns, please call: Pediatric Sedation Unit [phone] Pediatric clinic [phone] [facility] [phone] (ask for the Peds GI doctor bed control specialist) Emergency department [phone] [facility] toll-free number (Wednesday--Wednesday, 8 a.m. to 4:30 [...] WNL. Alert and oriented. Heart sounds normal. [place], warm, well perfused. Breath sounds equal and clear. Abdomen soft and flat. Appropriately NPO. No obvious skin lesions present.CFL in to assess and help Holly through the morning. Assessed by anesthesia. Consent obtained by Dr. Rondon. Transported to procedure room in [facility]. documented in this encounter Plan of Treatment [...] Component Value Ref Test Analysis Performed At [facility] [facility] Method Time Signature Copath Report Patient Name: HOLLY YANCEY MR#: [id number] Specimen #: [id number] Collected: 03/13/2014 Received: 03/13/2014 Reported: 03/16/2014 15:17 Ordering Phy(s): ELKE RONDON SPECIMEN(S): A: Duodenal biopsy B: Gastric antrum [...] Electronically signed out by: Nia Ball M.D., [facility] CLINICAL HISTORY: The patient is a 13 year old girl with abdominal pain, lower back pain, weight loss, hypoalbuminemia, and right lower quadrant tende rness. Endoscopic findings are not available in the electronic medi guevara record. GROSS: A: The specimen is [...] te or granulomatous inflammation. CPT Codes: A: 88322-GV0 B: 40759-VA6 C: 02051-FZ0 D: 80915-IH2 E: 81898-OO7 F: 41401-IZ8 02945-KE3 TESTING LAB LOCATION: [address] [address] COLLECTION SITE: Client: [facility] Location: URPSED (B) Specimen Anatomical Collection Method Collection Time Receive d Time (Source) Location / / Volume Laterality 03/13/2014 10:04 03/13/2014 AM CDT 11:28 AM CDT Elke BELL - TERRY AP Performing Organization Address City/State/ZIP Code Phon e Number COPATH Disaccharidase panel (03/13/2014 10:01 AM CDT) [facility] Method Time Signature Lab Scanned DISACCARIDASE MISYS Result PANEL-Scanned Specimen Anatomical Collection Method Collection Time Receive d Time (Source) Location / / Volume Laterality 03/13/2014 10:01 03/13/2014 AM CDT 10:15 AM CDT Elke BELL - COCO SPECIAL DIAG OR DERABLES Performing Organization Address City/State/ZIP Code Phon e Number MISYS COLONOSCOPY (03/13/2014 9:39 AM CDT) Component Value Ref Test Analysis Performed At [facility] Range Method Time Signature COLONOSCOPY Amplatz RADIOLOGY Endoscopy Department-[facility] RESULTS Patient Name: Holly Yancey ? Procedure Da te: 03/13/2014 9:39 AM ? Accou nt Number: [id number] Date of : 2000 ? Admit Type: Outp atient Age: 13 ? Room: P eds sed Gender: Female ?Note Statu s: Finalized Attending MD: Elke Rondon MD ? Procedure: ? Colonoscopy Indications: ? Abdominal pain in the right lower q uadrant, ? Constipation, Weight loss Providers: ? Al lam Rondon MD, Arabella Morley RN, Cherry Marks, ? RN, Cami Christopher MD Patient Profile: ? 13yo female with RLQ abdo carlos pain, constipation, and ? weight loss Referring MD: ?Miya Baez MD Medicines: ? [...] the procedure well. ? The quality of e bowel preparation was good. ? Findings: [...] pathology results. ? Signed electronically by Elke Rondon Elke Rondon MD 03/30/2014 3:32 PM I was physically [...] Component Value Ref Test Analysis Performed At [facility] Range Method Time Signature Upper GI Amplatz RADIOLOGY Endoscopy Endoscopy Department-[facility] RESULTS Patient Name: Holly Yancey ? Procedure Da te: 03/13/2014 9:36 AM ? Accou nt Number: [id number] Date of : 2000 ? Admit Type: Outp atient Age: 13 ? Room: P eds sed Gender: Female ?Note Statu s: Finalized Attending MD: Elke Rondon MD ? Procedure: ? Upper GI endoscopy Indications: ? Abd ominal pain in the right lower quadrant, Weight loss Providers: ? Al lam Rondon MD, Arabella Morley RN, Cami Christopher, ? [...] Recommendation: ?- Discharge patient to home (with pa rent). ? - Soft diet today. ? - Await pathology results. ? Signed electronically by Elke Rondon Elke Rondon MD 03/30/2014 3:30 PM I was physically present for the entire viewing portion of t he exam. Signature of teaching physician [id number] Cami Christopher MD 03/13/2014 11:17 AM Number of Addenda: 0 Note Initiated On: 03/13/2014 9:36 AM Specimen (Source) Anatomical Collection Method Collection Time Re ceived Time Location / / Volume Laterality 03/13/2014 9:36 AM CDT Miya Baez PROCEDURES Performing Organization Address City/State/ZIP Code Phon e Number RADIOLOGY RESULTS HCG qualitative urine (03/13/2014 8:35 AM CDT) P athologist Signature HCG Qual Urine Negative [facility] Specimen Anatomical Collection Method Collection Time Receive d Time (Source) Location / / Volume Laterality Urine specimen URINE SPECIMEN 03/13/2014 8:35 AM 03/13 8:45 (specimen) OBTAINED BY CLEAN CDT AM CDT CATCH PROCEDURE / Unknown Keith Coe MD LAB - URINE ORDERABLES Performing Organization Address City/State/ZIP Code Phon e Number [facility] [address] [place] [address] [facility] documented in this encounter Visit Diagnoses [...] Pre-procedure documented in this encounter Care Teams Hair Dryer Relationship Specialty Start Date End Date Miya Baez PCP - General Family Practice 02/16/14 06/28/19 [facility] [id number] [place] [address] documented as of this encounter
--- OUTSIDE RECORDS SUMMARY | 2022-03-04 19:51 | XMS_ITS | Clinical Summary ---
:2000 Author Organization [facility] Address [address] [place] [address] Care Team Providers Name Role Phone Mccoy Tanvi Perez HUGHES Primary Care Provider [phone] Allergies Active Allergy Reactions Severity Noted Date Comments Amoxicillin 02/21/2014 Betamethasone 02/21/2014 Cefprozil 02/21/2014 Penicillins 02/21/2014 Medications Medication Sig Dispensed Refills Start Date End Date Status Hydrocodone-Acetaminophen 0 Active (NORCO PO)Indications: Abdominal pain, other specified site, Lower back pain, Dysuria Phenazopyridine HCl 0 Active (PYRIDIUM PO)Indications: Abdominal pain, other specified site, Lower back pain, Dysuria polyethylene glycol Take 1/2 - 2 527 g 5 02/21/2014 Active (MIRALAX/GLYCOLAX) capfuls by powderIndications: mouth daily. Constipation IBUPROFEN PO Take 600 mg by 0 Ac tive mouth every 6 hours TraMADol HCl (ULTRAM PO) Take 50 mg by 0 Active mouth every 6 hours MedroxyPROGESTERone Injection every 0 Active Acetate (DEPO-PROVERA IM) 3 months Active Problems Problem Noted Date Constipation 04/30/2014 Family History Medical History Relation Comments Gynecology Mother Endometriosis Ovarian Cancer Paternal Grandmother at 44yo Relation Status Comments Mother Paternal Grandmother Social History Tobacco Use Types Packs/Day Years Used Date Smoking Tobacco: Never Sex Assigned at Date Recorded Not on file Last Filed Vital Signs Vital Sign Reading Time Taken Comments Blood Pressure 131/72 06/29/2019 5:55 PM INTERACTIVE MEDIA MARKETING DIRECTOR Pulse 87 06/29/2019 5:55 PM INTERACTIVE MEDIA MARKETING DIRECTOR Temperature 37 ??C (98.6 ??F) 06/29/2019 5:55 PM INTERACTIVE MEDIA MARKETING DIRECTOR Respiratory Rate 16 06/29/2019 5:55 PM INTERACTIVE MEDIA MARKETING DIRECTOR Oxygen Saturation 98% 06/29/2019 5:55 PM INTERACTIVE MEDIA MARKETING DIRECTOR Inhaled Oxygen Concentration - - Weight 45.1 kg (99 lb 6.8 oz) 03/13/2014 8:36 AM CDT Height 155.4 cm (5' 1.18) 03/09/2014 8:01 AM CDT Body Mass Index 18.68 03/09/2014 8:01 AM CDT Plan of Treatment Health Maintenance Due Date Last Done Comments ADVANCE CARE PLANNING 2000 ANNUAL REVIEW OF HM ORDERS 2000 CHLAMYDIA SCREENING 2000 HEPATITIS B IMMUNIZATION (1 2000 of 3 - 3-dose series) YEARLY PREVENTIVE VISIT 2000 COVID-19 Vaccine (#1) 2000 DTAP/TDAP/TD IMMUNIZATION 2011 06/29/2005, 11/04/2001 , (6 - Tdap) 2000, Additional history exists HIV SCREENING 2015 HEPATITIS C SCREENING 2018 PAP 2021 PHQ-2 (once per calendar 05/17/2021 year) INFLUENZA VACCINE (#1) 2022 03/15/2019, 03/29/2017, 04/13/2014, Additional history exists IPV IMMUNIZATION Aged Out 06/29/2005 No longer eligi ble based on patient 's age to complete this topic HPV IMMUNIZATION Completed 12/07/2014, 01/09/2013, 12/07/2012 MENINGITIS IMMUNIZATION Completed 09/10/2017, 12/07/2012 Pneumococcal Vaccine: Aged Out No longer eligible Pediatrics (0 to 5 Years) based on patient's age and At-Risk Patients (6 to to co mplete this topic 64 Years) Insurance Payer Benefit Plan / Subscriber ID Effective Dates Phone Addre ss Type Group BCBS BCBS OUT OF [id number] 2018-Present [phone] [address] [address] [place] [address] Care Teams Olive Grower Relationship Specialty Start Date End Date Tanvi Mccoy NP PCP - General Nurse Practitioner - 06/29/19 [facility] [address] [place] [address]
--- OUTSIDE RECORDS SUMMARY | 2022-03-04 19:52 | XMS_ITS | Clinical Summary ---
:2000 Author Organization [facility] [place] [address] Care Team Providers Name Role Phone Jessica Luciano MANAGER MARKET INTELLIGENCE Unavailable Unavailable Tanvi Mccoy MANAGER MARKET INTELLIGENCE Primary Care Provider [phone] 1 Allergies Active Allergy Reactions Severity Noted Date Comments Amoxicillin Hives 07/08/2005 Amoxicillin-Pot Clavulanate Hives 08/10/2013 Bee Venom Protein (Honey Bee) Hives 03/29/2017 Betamethasone Hives 02/21/2014 Cefprozil Hives 07/08/2005 Cephalosporins Hives 06/20/2016 Penicillins Hives 02/06/2014 Medications Medication Sig Dispensed Refills Start End Status Date Date calcium Take 1 tablet by 0 04/20/20 Act temo carbonate-vitamin mouth 2 times daily 18 D3, 500 mg-400 before meals. units, (OSCAL 500 + D) tablet dicyclomine Take one tablet 0 07/04/19 Ac tive (BENTYL) 20 mg three times daily 20 tablet pantoprazole On tablet daily 0 07/04/19 A ctive (PROTONIX) 40 mg before breakfast 20 delayed-release tablet ondansetron Place 1 Tablet (4 8 Tablet 3 11/29/19 Active (ZOFRAN ODT) 4 mg mg) on the tongue 21 disintegrating every 8 hours if tabletIndications needed for : Nausea Nausea/Vomiting. pindoloL (VISKEN) Take 0.5 Tablets 90 Tablet 3 07/01/19 Active 5 mg (2.5 mg) by mouth 2 22 tabletIndications times daily. : Tachycardia desvenlafaxine Take 1 Tablet (100 90 Tablet 1 10/31/19 Active succinate mg) by mouth every 22 (PRISTIQ) 100 mg morning. extended release tabletIndications : CRAIG (generalized anxiety disorder), Mild episode of recurrent major depressive disorder (HC) busPIRone Take 1 Tablet (5 mg) 180 Tablet 0 10/31/19 Active (BUSPAR) 5 mg by mouth in the 22 tabletIndications morning and 1 Tablet : CRAIG (5 mg) in the (generalized evening. Start with anxiety 1/2 tablet daily and disorder), Mild increase to 1/2 episode of tablet twice a day recurrent major slowly. Then, if depressive continue to have disorder (HC), uncontrolled Severe episode of anxiety, increase to recurrent major a full tablet twice depressive a day.. disorder, without psychotic features (HC) BLISOVI 24 FE 1 TAKE ONE TABLET BY 4 Package 0 01/18/2002/03 Discontinued mg-20 mcg (24)/75 MOUTH EVERY DAY, 20 022 (*Med mg (4) SKIPPING PLACEBO com plete/Regim tabIndications: PILLS en OCP (oral complete/L evel contraceptive of car e pills) initiation ch emmy) chlordiazePOXIDE- Take 1 capsule by 0 01/10/2001/16 0/2 Discontinued clidinium-, 5-2.5 mouth. 20 022 (* Med mg, (LIBRAX) complet e/Regim 5-2.5 mg capsule en complete/L evel of care change) traZODone Take 1.5 Tablets (75 135 Tablet 1 10/31/19 Discontinued (DESYREL) 50 mg mg) by mouth at 22 022 (*Med tabletIndications bedtime. co mplete/Regim : Insomnia, en unspecified type com plete/Level of care change) ivabradine Take 1 Tablet (7.5 180 Tablet 1 01/15/20 Discontinued (Corlanor) 7.5 mg mg) by mouth two 22 022 (*Med tabletIndications times daily with complete/Regim : Tachycardia meals. Must make and en keep follow up compl ete/Level appointment with of care your change) electrophysiology pharmacy aide for further refills. Call to schedule. Active Problems Problem Noted Date Severe episode of recurrent major depressive disorder, without psychotic 10/30/2021 features Dysautonomia 11/28/2020 CY poor metabolizer 11/28/2020 Endometriosis determined by laparoscopy 11/01/2018 Overview: Endometriosis AND ovarian cysts. Did chronic pain program at [facility], did he lp x 1 year. History of dysautonomia, thus her doctor s would like her to avoid menstruation. Failed Depo-provera d/t mood, failed OCP s d/t didn't help, Mirena IUD currently helping somewhat. S/P remote appy S/P LSC endometriosis cauterization and removal of blood from ruptured ovarian cyst 10/2018, new mirena placed Dysmenorrhea in the adolescent 11/01/2018 Mirena IUD exchanged 11/01/18, strings 3cm 11/01/2018 Hyperopic astigmatism of left eye 03/28/2018 Mild episode of recurrent major depressive disorder CRAIG (generalized anxiety disorder) 06/25/2016 Paroxysmal SVT (supraventricular tachycardia) 12/03/19 16 ALLERGIC RHINITIS 06/24/2005 IBS (irritable bowel syndrome) Endometriosis Comments Yes Resolved Problems Problem Noted Date Resolved Date Other chest pain 06/02/2017 08/21/2019 Anxiety and depression 12/09/2014 08/25/2016 Insomnia 12/09/2014 08/21/2019 Dysmenorrhea in the adolescent 09/07/2012 0 Overview: Heavy, painful periods. Extensive evaluation for chronic abdomin al pain and dysmenorrhea. No clear etiology. Most recently (03/2014[facility] Started on depo, which has helped somewhat. Suspected endometriosis. Planning for la parascopy to include appendectomy with general surgery as well. Other specified viral warts 01/15/2011 04/02/2014 Encounters Date Type Specialty Care Team Description 02/27/2022 Ancillary Procedure Arrived 02/27/2022 Travel 02/13/2022 Ancillary Procedure 02/13/2022 Telephone Tanvi Mccoy Results E, MANAGER MARKET INTELLIGENCE 02/13/2022 Travel 02/04/2022 Refill Tanvi Mccoy Refill Re quest E, MANAGER MARKET INTELLIGENCE (Buspirone) 02/03/2022 Office Visit Tanvi Mccoy Physical E, MANAGER MARKET INTELLIGENCE 02/03/2022 Telephone Kwame Negron med concern MD Bean 02/03/2022 Travel 01/31/2022 Travel 01/14/2022 Refill Kwame Negron Refill Request MD Bean (Corlanor) from Last 3 Months Immunizations Name Administration Dates Next Due AMB Influenza, IIV3 (Age >=3 03/14/2011 years)(Flu Clinic Only) COVID-19 vaccine (JibJab 07/10/2020, 06/19/2020 30mcg/0.3mL) PF, MDV DTaP 06/29/2005, 11/04/2001, 2000, 2000, 2000 HIB PRP-OMP (PedvaxHIB) 11/04/2001, 2000, 2000, 2000 Hepatitis A (Peds) 12/07/2014, 12/07/2012 Hepatitis B (Peds) 06/29/2005, 2000, 2000 Human Papilloma Virus Vaccine 12/07/2014, 01/09/2013, 2012 Inactivated Polio Vaccine 06/29/2005 Influenza, IIV3 (Age >=3 years) 03/22/2009, 03/05/2008, 1208/2006, 03/25/2006 Influenza, IIV4 03/15/2019, 03/29/2017 Influenza, IIV4 (=>6mos) MDV 03/02/2018 Influenza, Injectable, Mdck, 02/10/2021 Quadrivalent, W/preservative Influenza,LAIV4 Live Intranasal 04/13/2014, 04/02/2010 (Flumist) MMR 06/29/2005, 08/01/2001 Meningococcal Vaccine (Menveo) 09/10/2017, 12/07/2012 Meningococcal, Unspecified 08/10/2017 (Deferred: Patient Ref used) Oral Polio Vaccine 06/29/2005, 08/01/2001, 2000, 2000 Tdap 12/07/2012 Varicella Vaccine 01/09/2013, 05/02/2001 Family History Medical History Relation Name Comments Good Health Brother Hyperlipidemia Father Hypertension Father Brain Aneurysm Maternal Grandfather of thi s, no other info known Atrial fibrillation Maternal Grandmother Congenital heart disease Maternal Grandmother Hyperlipidemia Maternal Grandmother Hypertension Maternal Grandmother Other Maternal Grandmother hysterectom y young age Rheum arthritis Maternal Grandmother Diabetes Mother Endometriosis Mother Hyperlipidemia Mother Migraines Mother Seizures Mother as a kid Genetic Other Family history o f:~Mat. gma-?Rheumato id arthritis. ~~Breast Cancer: ?Pat. g gma , great mat aunt~~ Ovarian Cancer: Pat. Gma ~~Colon CA: No~~Prostate/Dianne ticular CA:?No~~Osteo porosis:?No~~E marco antonio CAD:?No~ ~DM:?Great aunt GDM,?mat . gpa. ~~Thyroid Dz:?mat* Heart Disease Paternal Grandfather hole in hea rt. NOT IN CONTACT Hyperlipidemia Paternal Grandfather Hypertension Paternal Grandfather Cancer-ovarian Paternal Grandmother in her 40s of this Arthritis Paternal Uncle Atrial fibrillation Paternal Uncle Relation Name Status Comments Brother Alive Father Alive Maternal Grandfather Maternal Grandmother Alive Mother Alive Other Paternal Grandfather Alive Paternal Grandmother Paternal Uncle Social History Tobacco Use Types Packs/Day Years Used Date Never Smoker Smokeless Tobacco: Never Used Tobacco Cessation: Counseling Given: Yes Comments: nonsmoking home Alcohol Use Standard Drinks/Week Comments No 0 (1 standard drink = 0.6 oz pure alcoho l) Alcohol Habits Answer Date Recorded How often do you have a drink containing alcohol? Never 09/19/2018 How many drinks containing alcohol do you have on a typical Not asked day when you are drinking? How often do you have six or more drinks on one occasion? No t asked Comment: Not asked Social Isolation Answer Date Recorded In a typical week, how many times do you More than three scott es a week 10/17/2018 talk on the phone with family, friends, or neighbors? How often do you get together with friends More than three t imes a week 10/17/2018 or relatives? How often do you attend moravian or Never 2018 mandaen services? Do you belong to any clubs or Yes 10/17/2018 organizations such as moravian groups, unions, fraternal or athletic groups, or school groups? How often do you attend meetings of the Never 10/17/2018 clubs or organizations you belong to? Are you now , , , Never 10/17/2018 , never or living with a partner? Physical Activity Answer Date Recorded On average, how many days per week do you engage in moderate to 7 days 10/17/2018 strenuous exercise (like walking fast, running, jogging, dancing, swimming, biking, or other activities that cause a light or heavy sweat)? On average, how many minutes do you engage in exercise at th is 30 min 10/17/2018 level? Stress Answer Date Recorded Do you feel stress - tense, restless, nervous, or anxious, N ot at all 10/17/2018 or unable to sleep at night because your mind is troubled all the time - these days? Intimate Partner Violence Answer Date Recorded Within the last year, have you been afraid of your partner o r No 10/17/2018 ex-partner? Within the last year, have you been humiliated or emotionall y No 10/17/2018 abused in other ways by your partner or ex-partner? Within the last year, have you been kicked, hit, slapped, or No 10/17/2018 otherwise physically hurt by your partner or ex-partner? Within the last year, have you been raped or forced to have any No 10/17/2018 kind of sexual activity by your partner or ex-partner? Food Insecurity Answer Date Recorded Within the past 12 months, you worried that your food would Never true 10/17/2018 run out before you got money to buy more. Within the past 12 months, the food you bought just didn't N ever true 10/17/2018 last and you didn't have money to get more. Transportation Needs Answer Date Recorded In the past 12 months, has lack of transportation kept you f rom No 10/17/2018 medical appointments or from getting medications? In the past 12 months, has lack of transportation kept you f rom No 10/17/2018 meetings, work, or getting things needed for daily living? Comments Yes Sex Assigned at Date Recorded Not on file COVID-19 Exposure Response Date Recorded In the last 10 days, have you been in contact with No / Unsu re 02/27/2022 1:42 PM CDT someone who was confirmed or suspected to have Coronavirus/COVID-19? Obstetrics History Para Term AB IAB SAB Ectopic Multiple Living Live Births 1 0 0 0 0 0 0 0 0 0 Date Outcome GA Total Labor/2nd/3rd Weight Sex Delivery Anes PTL Kiara A 1 A5 Name Clin Labor Current Last Filed Vital Signs Vital Sign Reading Time Taken Comments Blood Pressure 112/74 02/03/2022 2:08 PM CDT Pulse 90 02/03/2022 2:08 PM CDT Temperature 36.8 ??C (98.3 ??F) 01/25/2021 9:36 PM CDT Respiratory Rate 18 01/26/2021 12:00 AM CDT Oxygen Saturation 99% 02/03/2022 2:08 PM CDT Inhaled Oxygen Concentration - - Weight 67.1 kg (148 lb) 02/03/2022 2:08 PM CDT Height 158.3 cm (5' 2.32) 02/03/2022 2:08 PM CDT Body Mass Index 26.79 02/03/2022 2:08 PM CDT Plan of Treatment Upcoming Encounters Date Type Specialty Care Team Description 03/10/2022 Office Visit Niels Montoya MD [address] [place] [address] (Wo rk) Health Maintenance Due Date Last Done Comments COVID-19 vaccine series (3 - 09/04/2020 07/10/2020, 021 Booster for Pfizer series) Chlamydia for age 16-24 04/19/2021 04/19/2020, 01/13/2019, 08/26/2018, Additional history exists Influenza for age 9-49 01/15/2022 02/10/2021, 03/15/2019, 03/02/2018, Additional history exists Depression screening for age 12+ 10/30/2022 10/30/2021, , 07/26/2020, Additional history exists Tetanus booster 12/07/2022 12/07/2012 BMI (ht and wt on same day) for 02/03/2023 02/03/2022, 06/2020, age 18+ 12/31/2020, Additional history exists Pap test for age 21-65 02/03/2025 02/03/2022, 02/03/2022 Tdap Completed 12/07/2012 HPV series for age 9-26 Completed 12/07/2014, 01/09/2013, 12/07/2012 Meningococcal series for age 11-21 Completed 09/10/2017, 0 12/07/2012 Hepatitis C screening for age Completed 02/03/2022 18-79 Medical Devices Implanted Type Area Health Technician Device Shelf Model / Serial Identifier Expiration / Lot Date Sys Intrauterine Mirena - [id number] Uterus [employer] 04/15/2021 [id number] / Implanted: Qty: 1 on 11/01/2018 by Nahed shore, Meeta Connelly DO at [facility] [employer] [id number] / [id number] Procedures Procedure Name Priority Date/Time Associated Comments Diagnosis US OB ANY TRI TV Routine 02/27/2022 3:08 PM Less than 8 weeks Results for this CDT gestation of procedure are i n the results section. US OB 1ST TRI SINGLE RONIT 02/13/2022 2:31 PM Less than 8 we eks Results for this TA AND TV CDT gestation of procedure are i n the results section. CERTIFIED PROFESSIONAL MIDWIFE THIN PREP PAP Routine 02/03/2022 3:32 PM Pap smear for Res ults for this SCREEN IMAGED CDT cervical cancer procedure a re in screening the results section. HPV THIN PREP Routine 02/03/2022 3:32 PM Pap smear for Results for this CDT cervical cancer procedure ar e in screening the results section. HEMOGLOBIN Routine 02/03/2022 3:26 PM Screening for Results for this CDT deficiency anemia procedure are in the results section. HEMOGLOBIN A1C Routine 02/03/2022 3:26 PM Diabetes mellitus Re sults for this SCREENING CDT screening procedure are i n the results section. LIPID PANEL W REFLEX Routine 02/03/2022 3:26 PM Lipid screenin g Results for this MEASURED LDL CDT procedure are i n the results section. ANTI HCV Routine 02/03/2022 3:26 PM Encounter for Results for this CDT hepatitis C procedure are i n screening test for the resul ts low risk patient section. HCG BETA Routine 02/03/2022 3:26 PM Possible , Re sults for this QUANT, CDT not yet confirmed procedu re are in the results section. URINE Routine 02/03/2022 2:13 PM Possible , Results for this CDT not yet confirmed procedure are in the results section. from Last 3 Months Results US OB ANY TRI TV (02/27/2022 3:08 PM CDT) Anatomical Region Laterality Modality , 2or 3 TRIMESTER, 1ST TRIMESTE R Ultrasound Specimen (Source) Anatomical Collection Method Collection Time Re ceived Time Location / / Volume Laterality 02/27/2022 3:16 PM CDT Impressions 02/27/2022 3:16 PM CDT Normal first trimester OB ultrasound exam. ??Gestational age calculated at 8 weeks 0 days with a sonographic due date of 10/09/2022. Dictated by Niels Meade MD @ Feb 27 2 022 ??3:16PM (Electronically Signed) ?? Narrative 02/27/2022 3:16 PM CDT For Patients: ??As a result of the Cures Act, medical imaging exams and procedure report s are released immediately into your [facility] medical record. ??You may view this report before your referring provider. ??If you have questions, please contact your health care provider. INDICATION: Follow up viability COMPARISON: 02/13/2022 TECHNIQUE: Real-time ford-scale imaging of the pelv is was performed. FINDINGS: Sonographic imaging demonstrates a singl e living intrauterine gestation. The embryo demonstrates a regular cardiac rate measuring 164 beats per minute. The embryo`s crown-rump length measurement of 1.6 cm corresponds to a gestational age of 8 weeks 0 days with a sonographic due date of 10/09/2022. There is a normal-appearing yolk sac. There are no gross abnormalities noted within the embryo at this ea rly state of development. The gestationa l sac has a normal appearance. There is no evidence of a perigestational hemorrhage. The amount of fluid within the sac appears appropriate for gestational age. The cervix is closed. The myometrium haim ears normal. The ovaries are of normal size. Corpus luteal cyst left ovary measuring 2 centimeters. There are no suspicious fluid collections noted in the cul-de-sac. Procedure Note Niels Meade MD - 02/27/2022For matting of this note might be different from the original. For Patients: As a result of the ntury Cures Act, medical imaging exams and procedure reports are released immediately into your electronic medical record. You may view this report before your referring provider. If you have questions, please contact yo health care provider. INDICATION: Follow up viability COMPARISON: 02/13/2022 TECHNIQUE: Real-time ford-scale imaging of the pelv is was performed. FINDINGS: Sonographic imaging demonstrates a singl e living intrauterine gestation. The embryo demonstrates a regular cardiac rate measuring 164 beats per minute. The embryo`s crown-rump length measurement of 1.6 cm corresponds to a gestational age of 8 weeks 0 days w ith a sonographic due date of 10/09/2022. There is a normal-appearing yolk sac. There are no gross abnormalities noted within the embryo at this early state of development. The gestational sac has a normal appeara nce. There is no evidence of a perigestational hemorrhage. The amount of fluid within the sac appears appropriate for gestational age. The cervix is closed. The myometrium haim ears normal. The ovaries are of normal size. Corpus luteal cyst left ovary measuring 2 centimeters. There are no suspicious fluid collections noted in the cul-de-sac. IMPRESSION: Normal first trimester OB ultrasound exa m. Gestational age calculated at 8 weeks 0 days with a sonographic due date of 10/09/2022. Dictated by Niels Meade MD @ Feb 27 3:16PM (Electronically Signed) Tanvi Mccoy NP US US OB 1ST TRI SINGLE TA AND TV (02/13/2022 2:31 PM CDT) Anatomical Region Laterality Modality Ultrasound Specimen (Source) Anatomical Collection Method Collection Time Re ceived Time Location / / Volume Laterality 02/13/2022 2:37 PM CDT Impressions 02/13/2022 2:37 PM CDT Single living intrauterine with sonographic gestational age 5 weeks 6 days and sonographic due date 10/10/2021. The heart rate is low measuring 96 beats per minute and follow up in 11-14 days recommended. Dictated by Niels Meade MD @ Feb 13 2 022 ??2:37PM (Electronically Signed) ?? Narrative 02/13/2022 2:37 PM CDT For Patients: ??As a result of the Cures Act, medical imaging exams and procedure report s are released immediately into your [facility] medical record. ??You may view this report before your referring provider. ??If you have questions, please contact your health care provider. INDICATION: First trimester scan, establish dates. COMPARISON: None. TECHNIQUE: Real-time ford-scale imaging of the pelv is was performed. FINDINGS: Sonographic imaging demonstrates a singl e living intrauterine gestation. The embryo demonstrates a lower cardiac rate measuring 96 beats per minute. The embryo`s crown-rump length measurement of 0.2 cm corresponds to a gestational age of 5 we eks 6 days with a sonographic due date of 10/10/2021. There is a normal-appearing yolk sac. There are no gross abnormalities noted within the embryo at this early state of development. The gestational s ac has a normal appearance. There is no evidence of a perigestational hemorrhage. The amount of fluid within the sac appears appropriate for gestational age. The cervix is closed. The myometrium haim ears normal. The ovaries are of normal size. Probable corpus luteal cyst left ovary measuring 1.8 x 1.5 x 1.4 cm. There are no suspicious fluid collections noted in the cul-de-sac. Procedure Note Niels Meade MD - 02/13/2022For matting of this note might be different from the original. For Patients: As a result of the Cures Act, medical imaging exams and procedure reports are released immediately into your electronic medical record. You may view this report before your referring provider. If you have questions, please contact yo health care provider. INDICATION: First trimester scan, establish dates. COMPARISON: None. TECHNIQUE: Real-time ford-scale imaging of the pelv is was performed. FINDINGS: Sonographic imaging demonstrates a singl e living intrauterine gestation. The embryo demonstrates a lower cardiac rate measuring 96 beats per minute. The embryo`s crown-rump length measurement of 0.2 cm corresponds to a gestational age of 5 weeks 6 days w ith a sonographic due date of 10/10/2021. There is a normal-appearing yolk sac. There are no gross abnormalities noted within the embryo at this early state of development. The gestational sac has a normal appeara nce. There is no evidence of a perigestational hemorrhage. The amount of fluid within the sac appears appropriate for gestational age. The cervix is closed. The myometrium haim ears normal. The ovaries are of normal size. Probable corpus luteal cyst left ovary measuring 1.8 x 1.5 x 1.4 cm. There are no suspicious fluid collections noted in the cul-de-sac. IMPRESSION: Single living intrauterine wit h sonographic gestational age 5 weeks 6 days and sonographic due date 10/10/2021. The heart rate is low measuring 96 beats per minute and follow up in 11-14 days recommended. Dictated by Niels Meade MD @ Feb 13 2 022 2:37PM (Electronically Signed) Tanvi Mccoy NP US CERTIFIED PROFESSIONAL MIDWIFE THIN PREP PAP SCREEN IMAGED (02/03/2022 3:32 PM CDT) Component Value Ref Test Analysis Performed At [facility] Range Method Time Signature Case Report Gynecologic Cytology Report ? Case: [id number] ? 02/17/2022 [facility] Authorizing Provider: ??Tanvi Graham, ELLEN ?? Collected: ? 02/03/2022 1532 ? 10:24 AM HEALTH Ordering Location: ? [facility] ?? Received: ?02/03/2022 1532 ? CDT LABOR ATORY-C ? Clinic ? ENTRAL First Screen: ? Baccam, Minie ? LABORATORY Specimen: ?CERTIFIED PROFESSIONAL MIDWIFE ThinPrep Vial Screening, Cervical ? INTERPRETATION NEGATIVE FOR (none) 02/17/2022 [facility] E lectronically /RESULT INTRAEPITHELIAL 10:24 AM HEALTH sign ed by LESION OR CDT LABORATORY-C Baccam Minijamil on MALIGNANCY (NIL) ENTRAL 02/17/2022 at LABORATORY 10:24 AM SPECIMEN Satisfactory for evaluation 02/17/2022 [facility] ADEQUACY Endocervical component present 10:24 AM HEALTH CDT LABORATORY-C ENTRAL LABORATORY HPV REQUEST HPV and PAP 02/17/2022 [facility] 10:24 AM HEALTH CDT LABORATORY-C ENTRAL LABORATORY Date of LMP 12/31/2021 02/17/2022 [facility] 10:24 AM HEALTH CDT LABORATORY-C ENTRAL LABORATORY Last Pap Date First Pap 02/17/2022 [facility] 10:24 AM HEALTH CDT LABORATORY-C ENTRAL LABORATORY Last Pap NIL 02/17/2022 [facility] Result 10:24 AM HEALTH CDT LABORATORY-C ENTRAL LABORATORY Abnormal Pap No 02/17/2022 [facility] or Elmer Bx in 10:24 AM HEALTH last 5 years CDT LABORATORY-C ENTRAL LABORATORY Menstrual Regular Periods 02/17/2022 [facility] Status 10:24 AM HEALTH CDT LABORATORY-C ENTRAL LABORATORY Elmer Bx Done No 02/17/2022 [facility] Today 10:24 AM HEALTH CDT LABORATORY-C ENTRAL LABORATORY Additional None given 02/17/2022 [facility] Information 10:24 AM HEALTH CDT LABORATORY-C ENTRAL LABORATORY Comment: Cytology is screened at [facility], Central Laboratory - [address], [place] [address] and [facility] - [address], [place] [address] and [facility] - [address] [place] [address] Interpreted at [facility], Central Laboratory - [address], [place] [address] Automated Review Successful 02/17/2022 10:24 AM [facility] CDT LABORATORY-CENTRAL L ABORATORY Comment: Specimen processed successfully by automated card game operator device, ThinPrep Imaging System, [employer] ANCILLARY TESTING HPV Ordered, 02/17/2022 10:24 [facility] CERTIFIED PROFESSIONAL MIDWIFE Please see AM CDT LABORATORY-CENTRAL separate report LABORATORY Note The pap test is a 02/17/2022 10:24 [facility] screening AM CDT LABORATORY-CENTRAL technique, not a LABORATORY diagnostic procedure. It is used primarily to screen for squamous cancers and precursor lesions. Published studies have shown that it is subject to both false negative and false positive results. The pap test should not be used as the sole means to diagnose or exclude pre-malignant and malignant lesions. Specimen Anatomical Collection Method Collection Time Receive d Time (Source) Location / / Volume Laterality Other (Cervical) Non-Blood / 02/03/2022 3:32 PM 02/03 3:32 Unknown CDT PM CDT Tanvi Mccoy NP PATHOLOGY/CYTOLOGY Performing Organization Address City/State/ZIP Code Phon e Number [facility] [address] [place] [address] LABORATORY-CENTRAL 2000 LABORATORY HPV HIGH RISK (02/03/2022 3:32 PM CDT) Analysis Performed At [facility] Time Signature TYPE 16 Negative Negative 02/05/2022 [facility] 4:41 PM CDT LABORATORY-[facility] LABORATORY TYPE 18 Negative Negative 02/05/2022 [facility] 4:41 PM CDT LABORATORY-[facility] LABORATORY OTHER HIGH Negative Negative 02/05/2022 [facility] RISK TYPES 4:41 PM CDT LABORATORY-[facility] LABORATORY Specimen Anatomical Collection Method Collection Time Receive d Time (Source) Location / / Volume Laterality Other (Cervical) Non-Blood / 02/03/2022 3:32 PM 02/04 Unknown CDT 10:30 AM CDT Narrative [facility] LABORATORY-CENTRAL LABORAT ORY - 02/05/2022 4:41 PM CDT HPV types 16, 18, 31, 33, 35, 39, 45, 51, 52, 56, 58, 59, 66 and 68 DNA were undetectable or below the pre-set threshold. Methodology: [facility] 4800 HPV Test Tanvi Mccoy NP MICROBIOLOGY Performing Organization Address City/State/ZIP Code Phon e Number [facility] [address] [place] [address] LABORATORY-CENTRAL 2000 LABORATORY HEMOGLOBIN A1C SCREENING (02/03/2022 3:26 PM CDT) P athologist Signature HEMOGLOBIN A1C 4.9 <=6.4 % 02/04/2022 [facility] SCREENING 10:25 AM CDT LABORATORY-[facility] LABORATORY Specimen Anatomical Collection Method / Collection Time Recei maykel Time (Source) Location / Volume Laterality Blood BLOOD SPECIMEN / Venipuncture / 02/03/2022 3:26 2021 3:26 Unknown Unknown PM CDT PM CDT Narrative [facility] LABORATORY-CENTRAL LABORAT ORY - 02/04/2022 10:25 AM CDT ? (<5.7%) ?Normal ? (5.7% to 6.4%) ? Indicates pr ediabetes ? (>=6.5%) ? Confirms diabetes Falsely low levels may be seen with: Recent Transfusion, Recent Significant B lood Loss, Hemolytic Diseases, or Falsely elevated levels may be seen with : Untreated Anemias, Splenectomy Tanvi Mccoy NP CHEMISTRY Performing Organization Address City/[facility]/ZIP Code Phon e Number [facility] [address] [place] [address] LABORATORY-CENTRAL 2000 LABORATORY LIPID PANEL W REFLEX MEASURED LDL (02/03/2022 3:26 PM CDT) [facility] gist Method Time Signature CHOLESTEROL,TOTAL 164 100 - 199 02/04/2022 [facility] mg/dL 6:52 PM CDT LABORATORY-[facility] LABORATORY TRIGLYCERIDES 66 <150 02/04/2022 [facility] mg/dL 6:52 PM CDT LAB[facility]ATORY[facility] LABORATORY HDL CHOLESTEROL 53 >40 mg/dL 02/04/2022 [facility] 6:52 PM CDT LAB[facility]ATORY-[facility] LABORATORY NON-HDL 111 <145 02/04/2022 [facility] CHOLESTEROL mg/dl 6:52 PM CDT LAB[facility]ATORY[facility] LABORATORY CHOL/HDL RATIO 3.09 <4.50 02/04/2022 [facility] 6:52 PM CDT [facility]AT[facility] LABORATORY LDL CHOLESTEROL 98 <=130 02/04/2022 [facility] mg/dL 6:52 PM CDT LAB[facility]ATORY[facility] LABORATORY VLDL CHOLESTEROL 13 <=30 02/04/2022 [facility] mg/dL 6:52 PM CDT LAB[facility]ATORY-[facility] LABORATORY PROVIDER ORDERED RANDOM 02/04/2022 [facility] STATUS 6:52 PM CDT LAB[facility]ATORY-[facility] LABORATORY Specimen Anatomical Collection Method / Collection Time Recei maykel Time (Source) Location / Volume Laterality Blood BLOOD SPECIMEN / Venipuncture / 02/03/2022 3:26 2021 3:26 Unknown Unknown PM CDT PM CDT Tanvi Mccoy NP CHEMISTRY Performing Organization Address City/[facility] Phon e Number [facility] [address] [place] [address] LABORATORY-CENTRAL 1999 LABORATORY ANTI HCV (02/03/2022 3:26 PM CDT) [facility] gist Method Time Signature HEPATITIS C Non-Reacti Non-Reacti 02/04/2022 [facility] ANTIBODY ve ve 7:10 PM CDT LABORATORY-[facility] LABORATORY Comment: Antibodies to HCV not detected; does not exclude the possibility of exposure to HCV. Specimen Anatomical Collection Method / Collection Time Recei maykel Time (Source) Location / Volume Laterality Blood BLOOD SPECIMEN / Venipuncture / 02/03/2022 3:26 2021 3:26 Unknown Unknown PM CDT PM CDT Tanvi Mccoy NP SEND OUTS Performing Organization Address City/[facility] Phon e Number [facility] [address] [address] LABORATORY-CENTRAL 1999 LABORATORY HEMOGLOBIN (02/03/2022 3:26 PM CDT) athologist Signature HEMOGLOBIN 12.5 12.0 - 16.0 02/03/2022 [facility] g/dL 3:32 PM CDT [facility] MCV 89 80 - 100 fL 02/03/2022 [facility] 3:32 PM CDT [facility] Specimen Anatomical Collection Method / Collection Time Recei maykel Time (Source) Location / Volume Laterality Blood BLOOD SPECIMEN / Venipuncture / 02/03/2022 3:26 2021 3:26 Unknown Unknown PM CDT PM CDT Tanvi Mccoy NP HEMATOLOGY Performing Organization Address City/State/ZIP Code Phon e Number [facility] [address] [place], [place] [address] CLINIC HCG BETA QUANT, (02/03/2022 3:26 PM CDT) P athologist Signature HCG BETA 745 mIU/mL 02/04/2022 [facility] QUANT,PREGNANC 6:47 PM CDT LABORATORY-CE NT Y RAL LABORATORY Specimen Anatomical Collection Method / Collection Time Recei maykel Time (Source) Location / Volume Laterality Blood BLOOD SPECIMEN / Venipuncture / 02/03/2022 3:26 2021 3:26 Unknown Unknown PM CDT PM CDT Narrative [facility] LABORATORY-CENTRAL LABORAT ORY - 02/04/2022 6:47 PM CDT Expected Value for Healthy Non- premenopausal women <5mIU/mL ? FOR GESTATIONAL ASSESSMENT-See Range Table Below ? Weeks Post LMP ?Approximate HCG Range: ? (Last Menstrual Period) ?3-4 ?? Weeks ? (9-130) ?4-5 ?? Weeks ? (77-2600) ?5-6 ?? Weeks ? (850-07845) ?6-7 ?? Weeks ? (4000-695951) ?7-12 ??Weeks ? (51660-122470) ?12-16 Weeks ? (19844-326243) ?16-29 Weeks ? (1400-58859) ?29-41 Weeks ? ([phone]) Tanvi Mccoy NP CHEMISTRY Performing Organization Address City/State/ZIP Code Phon e Number [facility] [address] [place] [place] [address] LABORATORY-CENTRAL 2000 LABORATORY (ABNORMAL) URINE (02/03/2022 2:13 PM CDT) [facility] gist Method Time Signature ,URI Positive Negative 02/03/2022 [facility] [place] (Positive) 2:18 PM CDT [facility] Comment: Is Rh typing necessary? Specimen Anatomical Collection Method Collection Time Receive d Time (Source) Location / / Volume Laterality Urine URINE SPECIMEN / Non-Blood / 02/03/2022 2:13 PM 02/03 2:13 Unknown Unknown CDT PM CDT Tanvi Mccoy NP URINE Performing Organization Address City/State/ZIP Code Phon e Number [facility] [place] [address] [place], [place] [address] CLINIC from Last 3 Months Insurance Payer Benefit Plan / Subscriber ID Effective Dates Phone Addre ss Type Group BLUE [employer]OSS BLUE [employer] OF [id number] 2011-Present [address] [address] [place] [address] BLUE [employer]OSS BL[employer] OF [id number] 2018-Present [address] [address] [place] [address] BLUE CROSS BLUE CROSS OF [id number] 2018-Present [address] [address] [place] [address] Renay Yancey V Personal/Family Self [phone] (Home) [place] [address] Advance Directives Latest Code Status on File Code Status Date Activated Date Inactivated Comments Full Code 11/01/2018 7:40 AM 11/01/2018 3:51 PM Full Code 12/09/2015 6:03 AM 12/09/2015 7:22 PM Care Teams Geophysical Prospector Relationship Specialty Start Date End Date Tanvi Mccoy, MANAGER MARKET INTELLIGENCE PCP - General Nurse Practitioner 12/26/18 [address] [place] [address] Jessica Luciano, ELLEN Psychiatry Nurse Practitioner 07/17/16
[2022-03-04 20:06] LABS: Chloride* 101 mmol/L (96-114); Potassium* 3.8 mmol/L (3.6-5.1); Sodium* 133 mmol/L (135-149)
[2022-03-04 20:08] LABS: Creatinine* 0.5 mg/dL (0.5-1.5); Est. Creatinine Clearance* 147.23; Estimated Glomerular Filt Rate 137 ml/min
[2022-03-04 20:09] LABS: Blood Urea Nitrogen* 14 mg/dL (5-24); Carbon Dioxide* 24 mmol/L (20-32); Glucose* 82 mg/dL (60-115)
[2022-03-04 20:10] LABS: Calcium* 9.7 mg/dL (8.4-10.6)
== END 2022-03-04 20:39 | disposition home or self-care (01) ==
PROVIDERS: Emergency Provider Emergency Medicine Emergency Medical Services; PCP Nurse Practitioner Family
DX: O21.0 Mild hyperemesis gravidarum (principal); Z3A.08 8 weeks gestation of pregnancy
CPT/HCPCS: 36415; 80048; 85025; 96374; 99284; J2405; J7030

== ENCOUNTER 2022-11-04 12:08 | Emergency (ER) | payer BC, SELFPAY ==
[2022-11-04 12:12] VITALS: BP 113/78; PULSE 94; RESP 16; TEMP 35.9; O2SAT 97; BMI 25.6
--- NOTE | 2022-11-04 12:58 | ED.GENADULT ---
HPI - General Adult General Date Seen: 11/04/22 Chief complaint: Skin/Abscess/Foreign Body Stated complaint: Red/irritated nipple Time Seen by Provider: 11/04/22 12:09 Source: patient Mode of arrival: ambulatory Limitations: no limitations History of Present Illness HPI narrative: Patient is a 22-year-old who had a baby 5 weeks ago. She is . Over the past couple of days she has developed redness, pain and itching in the right nipple. Baby does not seem to be having any symptoms. She has not had fevers or other breast pain. No other complaints. She is using breast pads. Related Data Home Medications Medication Instructions Recorded Confirmed buspirone 5 mg tablet mg 03/04/22 dicyclomine 10 mg capsule 20 mg PO 03/04/22 ondansetron HCl 4 mg tablet 4 mg PO Q6-8H PRN 03/04/22 03/04/22 pantoprazole 40 mg tablet,delayed mg PO 03/04/22 release Previous Rx's Medication Instructions Recorded nystatin 100,000 unit/gram topical 1 applic topical BID #30 grams 11/04/22 ointment Allergies Allergy/AdvReac Type Severity Reaction Status Date / Time Cephalosporins Allergy Intermediate Hives Verified 11/04/22 12:17 Penicillins AdvReac Verified 03/04/22 19:11 PFSH PFSH Social History Smoking Status: Never smoker How often do you have a drink containing alcohol: never AUDIT-C Alcohol total score: 0 Non-prescribed substance use: denies use Exam Narrative: Exam Narrative: Vital signs reviewed In general, alert, well-appearing young woman. Breast exam: She has mild erythema of the right nipple compared to the left, some tenderness to palpation. The breast itself is not erythematous or warm, no evidence of cellulitis, mastitis, abscess. Skin: Warm dry otherwise well perfused. She has some scattered erythematous papules on her chest which she says are stable related to acne. Const: Vital Signs, click to edit/add: Vital Signs - 24 hr 11/04/22 12:12 Temperature 96.6 F L Pulse Rate [Pulse Oximeter] 94 Respiratory Rate 16 Blood Pressure [Ri ght Upper Arm] 113/78 Pulse Oximetry 97 Oxygen Delivery Me thod Room Air Documenting provider has reviewed patient's vital signs: yes Course Course Hospital Course: History and exam are most consistent with a candidal infection of the nipple. Right now I do not see anything to suggest mastitis. We discussed management of this including a topical antifungal, avoidance of breast pads, keeping the nipples dry. At this time I do not see any evidence of oral thrush in her daughter but asked her to watch for that as well and if so she should be treated. Return for worsening pain, redness, new symptoms such as fever. Vital Signs Vital signs: Initial Vital Signs Temperature 96.6 F L 11/04/22 12:12 Temperature Source Temporal Artery Scan 11/04/22 12:12 Pulse Rate 94 11/04/22 12:12 Respiratory Rate 16 11/04/22 12:12 Blood Pressure 113/78 11/04/22 12:12 Blood Pressure Mean 89 11/04/22 12:12 Blood Pressure Position Sitting 11/04/22 12:12 Pulse Oximetry 97 11/04/22 12:12 Oxygen Delivery Method Room Air 11/04/22 12:12 Vital Signs Temperature 96.6 F L 11/04/22 12:12 Pulse Rate 94 11/04/22 12:12 Respiratory Rate 16 11/04/22 12:12 Blood Pressure 113/78 11/04/22 12:12 Pulse Oximetry 97 11/04/22 12:12 Oxygen Delivery Method Room Air 11/04/22 12:12 Temperature 96.6 F L 11/04/22 12:12 Pulse Rate 94 11/04/22 12:12 Respiratory Rate 16 11/04/22 12:12 Blood Pressure 113/78 11/04/22 12:12 Pulse Oximetry 97 11/04/22 12:12 Oxygen Delivery Method Room Air 11/04/22 12:12 Discharge Plan Discharge Clinical Impression: Candidiasis of breast Patient Disposition: Home, Self-Care Condition: Stable Instructions: Skin Yeast Infection (ED) Additional Instructions: Follow-up provided instructions. If you develop worsening redness more diffusely over the breast, fevers, or other significant changes, return for re-evaluation or see your clinic doctor. Keep an eye on your baby's mouth, if she develops symptoms of thrush, she should be treated to. You can discuss this with your retail performance coach. Prescriptions: New nystatin 100,000 unit/gram ointment 1 applic topical BID Qty: 30 0RF No Action buspirone 5 mg tablet Patient Comments: TAKE ONE TABLET BY MOUTH EVERY MORNING AND TAKE ONE TABLET BY MOUTH EVERY EVENING ; START WITH ONE-HALF TABLET ONCE DAILY AND INCREASE TO ON dicyclomine 10 mg capsule 20 mg PO Patient Comments: TAKE ONE CAPSULE BY MOUTH THREE TIMES DAILY pantoprazole 40 mg tablet,delayed release (DR/EC) PO Patient Comments: TAKE ONE TABLET BY MOUTH EVERY DAY 30 MINUTES BEFORE BREAKFAST. ondansetron HCl 4 mg tablet 4 mg PO Q6-8H PRN Follow Up/Referrals: Tanvi Mccoy, RICHARD, GATHERING MACHINE SETTER [Primary Care Provider] - Stand Alone Forms: [facility] Info Instructions
== END 2022-11-04 13:13 | disposition home or self-care (01) ==
LOC: ED 13:10
PROVIDERS: Emergency Provider Emergency Medicine; PCP Nurse Practitioner Family
DX: B37.9 Candidiasis, unspecified (principal); Z39.1 Encounter for care and examination of lactating mother
CPT/HCPCS: 99283

== ENCOUNTER 2024-07-17 09:15 | Outpatient (CLI) | payer BC, SELFPAY | END 2024-07-17 09:16 | disposition home or self-care (01) | LOC: NFLDREF 07-18 00:58 | PROVIDERS: PCP Nurse Practitioner Family; Referring Provider Nurse Practitioner Family; Visit Provider Obstetrics & Gynecology | DX: N97.0 Female infertility associated with anovulation (principal) | CPT/HCPCS: 80053; 84144; 84443 ==

== ENCOUNTER 2024-07-19 09:19 | Outpatient (CLI) | payer BC, SELFPAY ==
--- NOTE | 2024-07-19 09:15 | CRLHL7_ITS ---
For Patients: As a result of the Century Cures Act, medical imaging exams and procedure reports are released immediately into your electronic medical record. You may view this report before your referring provider. If you have questions, please contact your health care provider. INDICATION: Endometriosis, pelvic pain COMPARISON: CT 07/22/2020 TECHNIQUE: 2D ford scale and color Doppler images were acquired of the pelvis using a transabdominal and transvaginal approach. Spectral Doppler evaluation of the ovaries also performed. FINDINGS: Sonographic images demonstrate a normal size and smooth outer contour of the uterus. Uterus measures 6.4 cm in length by 3.7 cm in AP diameter by 4.8 cm in transverse dimension. The myometrium has a normal uniform echotexture. The endometrial lining appears normal and measures 6 mm in composite thickness. The right ovary measures 3.2 x 2.2 x 2.0 cm in size and the left ovary measures 2.7 x 2.4 x 1.9 cm. The ovaries demonstrate normal arterial and venous blood flow on color Doppler analysis. Normal spectral Doppler imaging of both ovaries. Moderate pelvic free fluid. Solid-appearing structure within the left ovary measures 1.7 x 1.5 x 1.5 cm with some peripheral vascularity. IMPRESSION: Endometrioma versus solid lesion left ovary measuring 1.7 cm, MRI recommended. Moderate pelvic free fluid. No torsion. Dictated by Niels Meade MD @ 07/19/2024 10:51:31 AM (Electronically Signed)
== END 2024-07-19 09:20 | disposition home or self-care (01) ==
LOC: US 09:20
PROVIDERS: PCP Nurse Practitioner Family; Visit Provider Obstetrics & Gynecology
DX: N80.9 Endometriosis, unspecified (principal); R10.2 Pelvic and perineal pain
CPT/HCPCS: 76830; 76856; 93976

== ENCOUNTER 2024-09-15 10:02 | Outpatient (CLI) | payer BC, SELFPAY ==
--- NOTE | 2024-09-15 10:00 | CRLHL7_ITS ---
For Patients: As a result of the Cures Act, medical imaging exams and procedure reports are released immediately into your electronic medical record. You may view this report before your referring provider. If you have questions, please contact your health care provider. OBSTETRICAL ULTRASOUND TRANSVAGINAL ??? FIRST TRIMESTER, 09/15/2024 CLINICAL INDICATION: Dating and viability. Surgery: Laparoscopic. History of endometriosis. LMP: 07/21/2024 ANTONIETTA by LMP: 04/27/2025 Gestational age: 8 weeks 0 days Previous ultrasound: No TECHNIQUE: Real-time ford-scale imaging of the fetus was performed transvaginal. FINDINGS: CRL: 1.6 cm, 8 weeks 0 days; ANTONIETTA 04/27/2025 heart rate: 173 BPM Gestational sac: 3.2 cm, appears within normal limits Yolk sac: 3.4 mm, appears within normal limits Right ovary: 3.0 x 2.5 x 1.8 cm Left ovary: 2.4 x 1.3 x 1.4 cm COMMENT: Right ovary isoechoic area with vascularity measuring 2.4 x 1.9 x 1.3 cm. IMPRESSION: 1. Single living intrauterine measuring 8 weeks 0 days and sonographic due date of 04/27/2025. 2. Solid-appearing lesion within the right ovary containing internal vascularity. Follow-up per Gynecology. NIELS MIN M.D. Diagnostic Radiologist [email or web address] Transcribed: 5:[address]/Dictated by: Niels Min MD @ 09/15/2024 4:46:00 PM (Electronically Signed)
== END 2024-09-15 10:03 | disposition home or self-care (01) ==
LOC: US 10:03
PROVIDERS: PCP Nurse Practitioner Family; Visit Provider Registered Nurse
DX: Z34.91 Encounter for supervision of normal pregnancy, unspecified, first trimester (principal); Z3A.08 8 weeks gestation of pregnancy
CPT/HCPCS: 76817

== ENCOUNTER 2024-09-15 10:55 | Outpatient (CLI) | payer BC, SELFPAY ==
[2024-09-15 15:39] LABS: Bacterial Vaginosis* Negative (Negative); Candida glab/krus NOT DETECTED (No Detected); Candida species NOT DETECTED (No Detected); Trichomonas vaginalis NOT DETECTED (No Detected)
[2024-09-15 16:09] LABS: Chlamydia DNA Amplified* NOT DETECTED (No Detected); GC DNA Amplified* NOT DETECTED (No Detected)
== END 2024-09-15 10:56 | disposition home or self-care (01) ==
PROVIDERS: PCP Nurse Practitioner Family; Visit Provider Registered Nurse
DX: O26.891 Other specified pregnancy related conditions, first trimester (principal); Z12.4 Encounter for screening for malignant neoplasm of cervix; N89.8 Other specified noninflammatory disorders of vagina; Z3A.08 8 weeks gestation of pregnancy
CPT/HCPCS: 81513; 83020; 83021; 85660; 86592; 86703; 86704; 86706; 86762; 86787; 86803; 86850; 86900; 86901; 87086; 87340; 87481; 87491; 87591; 87624; 87625; 87661; 88141; 88142

== ENCOUNTER 2024-10-13 13:45 | Outpatient (CLI) | payer BC, SELFPAY ==
--- NOTE | 2024-10-13 14:00 | CRLHL7_ITS ---
For Patients: As a result of the Cures Act, medical imaging exams and procedure reports are released immediately into your electronic medical record. You may view this report before your referring provider. If you have questions, please contact your health care provider. LMP: 07/21/2024. ANTONIETTA by LMP: 04/27/2025. ANTONIETTA by US: 04/27/2025. GA: 12w, 0d. GA previous US: 8w, 0d. INDICATION: Right ovarian lesion, 12 weeks gestation. CRL: 6.2. 12w, 4d. ANTONIETTA: 04/23/2025. FHR: 169 bpm. GESTATIONAL SAC: Appears within normal limits. YOLK SAC: Not visualized, posterior placenta. RIGHT OVARY: Within normal limits, 3.0 x 2.2 x 1.9 cm, CL. LEFT OVARY: Within normal limits, 3.0 x 1.5 x 1.6 cm. IMPRESSION: 1. Corpus luteal right ovarian cyst measures 1.9 x 1.9 x 1.4 cm. 2. Single living intrauterine measuring 12 weeks 4 days and sonographic due date of 04/23/2025. Niels Meade M.D. Diagnostic Radiologist [email or web address] bM/Dictated by: Niels Meade MD @ 10/13/2024 3:28:00 PM (Electronically Signed)
== END 2024-10-13 13:46 | disposition home or self-care (01) ==
LOC: US 13:46
PROVIDERS: PCP Nurse Practitioner Family; Visit Provider Registered Nurse
DX: O34.81 Maternal care for other abnormalities of pelvic organs, first trimester (principal); N83.201 Unspecified ovarian cyst, right side; N83.11 Corpus luteum cyst of right ovary; Z3A.12 12 weeks gestation of pregnancy
CPT/HCPCS: 76801

== ENCOUNTER 2024-12-08 12:12 | Outpatient (CLI) | payer BC, SELFPAY ==
--- NOTE | 2024-12-08 12:15 | CRLHL7_ITS ---
For Patients: As a result of the Century Cures Act, medical imaging exams and procedure reports are released immediately into your electronic medical record. You may view this report before your referring provider. If you have questions, please contact your health care provider. OB ULTRASOUND GREATER THAN 14 WEEKS, 12/08/2024 CLINICAL HISTORY: Basic anatomy screen. COMPARISON: 10/13/2024, 09/15/2024. TECHNIQUE: Real time ford scale imaging of the fetus was performed. Transabdominal and transvaginal imaging performed. Grayscale and M-mode color Doppler ultrasound of the uterus and ovaries from a transabdominal and transvaginal approach. Transvaginal ultrasound of the pelvis was performed to better evaluate the genitourinary organs such as the ovaries and/or endometrium. FINDINGS: ANTONIETTA by LMP: 04/27/2025. GA: 20 weeks 0 days. Position: Vertex. Cervix: Visualized. Technique: TA and TV. Length of closed cervix: 3.2 cm. Placenta/Cord: Placenta Position: Posterior. Technique: TV. Placenta tip to internal os: .9 cm. Umbilical Cord: 3 vessel cord. Placental Insertion: Central. Amniotic Fluid: 4.8 cm SDP. OBSERVED STRUCTURES: Calvarium/Spine: Cerebellum: 2 cm, 20 weeks 4 days Cisterna Magna: 4.5 mm Nuchal Fold: 4.7 mm Lateral Ventricle: 7 mm CSP Midline Falx Choroid Plexus Spine Abdomen: Stomach Abd Cord Insert Urinary Bladder Kidneys Diaphragm Face: Nose/Lips Orbital View Profile Limbs: Upper Extremities Lower Extremities Hands Feet Vascular: 4 Ch Heart LVOT RVOT 3VV 3VTV BIOMETRY: BPD: 4.7 cm, 20 weeks 2 days. 62% HC: 17.7 cm, 20 weeks 2 days. 52% AC: 15.9 cm, 21 weeks 0 days. 77% FL: 3.3 cm, 20 weeks 1 day. 49% FL/AC: 20.53% HC/AC: 1.12. Heart Rate: 155 bpm. age by this US: 20 weeks 3 days. ANTONIETTA by this US: 04/24/2025. EFW: 363 grams, 13 oz. Percentile by ANTONIETTA: 78% IMPRESSION: 1. Estimated weight is at the 78th percentile. 2. Low-lying posterior placenta located 9 mm from the internal cervical os. Recommend follow-up imaging in several weeks. 3. Normal anatomic survey. Fabrizio Forrest M.D. Body/Diagnostic Radiologist [email or web address] Transcribed: 11:10 am DW/Dictated by: Fabrizio Forrest MD @ 12/13/2024 10:38:00 AM (Electronically Signed)
== END 2024-12-08 12:13 | disposition home or self-care (01) ==
LOC: US 12:13
PROVIDERS: PCP Nurse Practitioner Family; Visit Provider Obstetrics & Gynecology
DX: Z34.92 Encounter for supervision of normal pregnancy, unspecified, second trimester (principal); O44.42 Low lying placenta NOS or without hemorrhage, second trimester; Z3A.20 20 weeks gestation of pregnancy
CPT/HCPCS: 76805; 76817

== ENCOUNTER 2025-01-05 10:13 | Outpatient (CLI) | payer BC, SELFPAY ==
--- NOTE | 2025-01-05 10:15 | CRLHL7_ITS ---
For Patients: As a result of the Cures Act, medical imaging exams and procedure reports are released immediately into your electronic medical record. You may view this report before your referring provider. If you have questions, please contact your health care provider. OB ULTRASOUND ANTONIETTA by LMP: 04/27/2025. GA: 24 w, 0 d. Single. COMPARISON: US 12/08/2024. INDICATION: Low lying placenta. TECHNIQUE: Real time ford scale imaging of the fetus was performed. Transabdominal imaging performed. CERVIX: Visualized. TA measurement: 3.0. POSITIONING: Breech. AMNIOTIC FLUID: 5.3 cm. SDP (N: greater than 2 x 1 cm). PLACENTA: Technique: Transabdominal. PLACENTA POSITION: Posterior. DOPPLER: heart rate: 144 bpm. IMPRESSION: Posterior placenta is located 3.4 cm from the internal cervical os. Cervix is closed and measures 3.0 cm. Breech position. Niels Meade M.D. Diagnostic Radiologist [email or web address] NAVARRO/Dictated by: Niels Meade MD @ 01/05/2025 6:38:00 PM (Electronically Signed)
== END 2025-01-05 10:14 | disposition home or self-care (01) ==
LOC: US 10:14
PROVIDERS: PCP Nurse Practitioner Family; Visit Provider Obstetrics & Gynecology
DX: Z34.92 Encounter for supervision of normal pregnancy, unspecified, second trimester (principal); Z3A.24 24 weeks gestation of pregnancy
CPT/HCPCS: 76816

== ENCOUNTER 2025-02-02 09:49 | Outpatient (CLI) | payer BC, SELFPAY | END 2025-02-02 09:50 | disposition home or self-care (01) | LOC: NFLDREF 02-07 14:47 | PROVIDERS: PCP Nurse Practitioner Family; Referring Provider Nurse Practitioner Family; Visit Provider Obstetrics & Gynecology | DX: Z34.93 Encounter for supervision of normal pregnancy, unspecified, third trimester (principal) | CPT/HCPCS: 86592 ==

== ENCOUNTER 2025-03-29 14:16 | Outpatient (CLI) | payer BC, SELFPAY ==
[2025-03-30 19:54] LABS: Strep B DNA Probe POSITIVE (Negative)
[2025-03-30 20:49] LABS: Strep B Susceptibility Needed? No
== END 2025-03-29 14:17 | disposition home or self-care (01) ==
LOC: NFLDREF 14:17
PROVIDERS: PCP Nurse Practitioner Family; Visit Provider Obstetrics & Gynecology
DX: Z34.93 Encounter for supervision of normal pregnancy, unspecified, third trimester (principal)
CPT/HCPCS: 87081; 87653

== ENCOUNTER 2025-04-13 13:08 | Outpatient (CLI) | payer BC, SELFPAY ==
--- NOTE | 2025-04-13 13:00 | CRLHL7_ITS ---
For Patients: As a result of the Century Cures Act, medical imaging exams and procedure reports are released immediately into your electronic medical record. You may view this report before your referring provider. If you have questions, please contact your health care provider. OB ULTRASOUND FOLLOW-UP CLINICAL HISTORY: Measuring less than dates. TECHNIQUE: Real time ford scale imaging of the fetus was performed. Transabdominal imaging performed. COMPARISON: 01/05/2025, 12/08/2024, 10/13/2024. FINDINGS: ANTONIETTA by LMP: 04/27/2025. GA: 38 weeks 0 days. Cervix: Not visualized. Positioning: Vertex. Amniotic Fluid: 6.5 cm SDP. Placenta: Technique: TA. Placenta Position: Posterior. Dopplers: 113, 127, 138. BIOMETRY: BPD: 9.6 cm, 39 weeks 3 days. 95% HC: 34.2 cm 39 weeks 3 days. 66% AC: 33.6 cm, 37 weeks 4 days. 55% FL: 7.5 cm, 38 weeks 3 days. 62% FL/AC Ratio: 22.31% HC/AC Ratio: 1.02. EFW: 3416 grams, 7 lb 8 oz. Age by this US: 38 weeks 5 days. ANTONIETTA by this US: 04/22/2025. Percentile by ANTONIETTA: 67% IMPRESSION: 1. Sonographic gestational age 38 weeks 5 days and sonographic due date 04/22/2025. Good correlation with dates. Normal interval growth. 2. Estimated weight 67th percentile. Abdominal circumference 55th percentile. 3. Average heart rate 129 beats per minute. Niels Meade M.D. Diagnostic Radiologist [email or web address] Transcribed: 9:47 am DW/Dictated by: Niels Meade MD @ 04/16/2025 5:55:00 AM (Electronically Signed)
== END 2025-04-13 13:09 | disposition home or self-care (01) ==
LOC: US 13:09
PROVIDERS: PCP Nurse Practitioner Family; Visit Provider Obstetrics & Gynecology
DX: O36.5930 Maternal care for other known or suspected poor fetal growth, third trimester, not applicable or unspecified (principal); Z3A.38 38 weeks gestation of pregnancy
CPT/HCPCS: 76816

== ENCOUNTER 2025-04-14 19:40 | Inpatient (IN) | payer BC, SELFPAY ==
[2025-04-14] VITALS (7 sets, daily range): BP systolic 121–127; BP diastolic 76–80; PULSE 91–120; RESP 16–18; TEMP 36.8–37.1; O2SAT 98–99; BMI 32.1
--- NOTE | 2025-04-14 19:54 | W.PM.LDBA ---
Subjective History of Present Illness Time Seen by Provider: 19:54 Date Seen: 04/14/25 Narrative: Patient is being admitted to Labor and Delivery for [labor. She is a 24 year old at weeks gestation. Her full history and physical was dictated previously. Please see this for details. Contractions around 1500. was 3cm in clinic. uncomplicated . Specific Issues/Plans G 2 P 1001 H&P by Kannan Beaulieu on 04/06/25 S.OLionel Rocky Daughter: Vivi, 2 yo #Low lying placenta at 20 weeks -FU at 24 weeks-resolved! #GBS positive #PCN allergy -- large hives, uncertain of dyspnea/angioedema - PCN allergy testing negative - ok for PCNs, avoid cephalosporins # Anxiety and depression. Currently managing with magnesium supplement. Experienced depression in past and took prescription medication during that time. # SVT. H/o cardiac ablation at age 13. Follows with Cardiology every 2 years. Plans to follow up with her Flatware Maker since she is : Flatware Maker had appointment for April after delivery. Referral placed to see cardiology at [facility]: scheduled for 01/18/25: No issues expected with delivery! #hepB non immune - low risk, considering vaccine as of 10/13 # Solid right ovarian lesion with vascularity at first OB, 1.9cm. > suspected corpus luteum Repeat US in 4 weeks - size unchanged, read as corpus luteum - FHx of ovarian cancer in paternal grandma at age 43, at 45. No further details known. No known genetic testing. Covid: Declines Flu: Declines TDAP: 02/15 RSV: 03/15 Mental Health:03/02/25 Hgb:03/15/25 12.2 GBS: Positive H&P: 04/06/25 Fernando Beaulieu CNM OB - Problem Based A/P Additional Plan (1) SVT (supraventricular tachycardia): Status: Acute Delivery/Labor/Induction Plan Plan: expectant management (iv antibiotics + GBS, epidural then arom.) OB Exam Physical Exam Vital signs: 126/77 Detailed Labor and Delivery Exam Patient Gravid: yes Dilation (cm): 4 Effacement (%): 90 Contraction intensity: Moderate Fetus (Single) Station: -2 Amniotic Membrane Status: intact Heart Rate Baseline: 130 Monitor Accelerations: Present Residential Variability: Moderate (6-25)
[2025-04-14] MEDS: AMPICILLIN 2 GM in 0.9 % SODIUM CHLORIDE Mini-bag 100 ML IVPB (20:00)
[2025-04-14 20:15] LABS: Hematocrit* 37.3 % (33.0-51.0); Hemoglobin* 12.5 gm/dL (12.0-16.0); Immature Granulocytes Abs Auto 0.12 K/uL (0.00-0.30); Immature Granulocytes Pct Auto 1.2 %; Mean Corpuscular HGB Conc 34 gm/dL (32-36); Mean Corpuscular Hemoglobin 30 pg (26-34); Mean Corpuscular Volume 89 fL (80-100); RDW Coefficient of Variation % 12.5 % (11.5-15.5); Red Blood Count* 4.21 m/uL (4.00-5.20); White Blood Count* 10.41 K/uL (4.50-11.00)
[2025-04-14 20:19] LABS: Lymphocytes Absolute Auto 1.90 K/uL (0.90-2.90); Slide Review Reflex No
[2025-04-14] MEDS: LACTATED RINGERS 1000 ML 1,000 ML 125 ML IV (22:47)
[2025-04-15] VITALS (63 sets, daily range): BP systolic 87–140; BP diastolic 50–85; PULSE 71–114; RESP 16–18; TEMP 36.3–37.2; O2SAT 92–99
[2025-04-15] MEDS: AMPICILLIN 1 GM in 0.9 % SODIUM CHLORIDE Mini-bag 100 ML IVPB (00:37)
[2025-04-15] MEDS: LACTATED RINGERS 1000 ML 1,000 ML 125 ML IV (01:00)
[2025-04-15] MEDS: LIDOCAINE 2% (PF) 5 ML VIAL EPIDURAL (01:03)
[2025-04-15] MEDS: PHENYLEPHRINE 100 MCG/ML SYRINGE IVP (01:06)
[2025-04-15] MEDS: ROPIVACAINE 0.2% 100 ml 100 ML 12 MG EPIDURAL (01:11)
--- NOTE | 2025-04-15 01:30 | P.ANBPRC_ITS ---
[facility] Medical History MDD (major depressive disorder) ?F32.9 - Major depressive disorder, single episode, unspecified (ICD-10) Tachycardia ?R00.0 - Tachycardia, unspecified (ICD-10) Migraines ?G43.909 - Migraine, unspecified, not intractable, without status migrainosus (ICD-10) Dysautonomia orthostatic hypotension syndrome ?I95.1 - Orthostatic hypotension (ICD-10) IBS (irritable bowel syndrome) ?K58.9 - Irritable bowel syndrome, unspecified (ICD-10) Surgical History Hx of tonsillectomy ?Z90.89 - Acquired absence of other organs (ICD-10) History of hysteroscopy ?Z98.890 - Other specified postprocedural states (ICD-10) H/O laparoscopy ?Z98.890 - Other specified postprocedural states (ICD-10) Hx of colonoscopy ?Z98.890 - Other specified postprocedural states (ICD-10) Hx of appendectomy ?Z90.49 - Acquired absence of other specified parts of digestive tract (ICD- 10) History of radiofrequency ablation procedure for cardiac arrhythmia ?Z98.890 - Other specified postprocedural states (ICD-10) Family History Mother Diabetes Father High cholesterol Grandmother Cardiovascular disease Ovarian cancer Uncle No problems noted. Social History What is your current living situation?: I presently have a place to live Problems where you live: no known problems In the past 12 months, utilities in danger of being shut off: no In past 12 months, lack of transportation kept you from medical appts, meetings, work, or getting things needed for daily living: no In the past 12 mos, have been you worried that your food would run out before you had money to buy more?: never true In the past 12 mos, the food you bought just didn't last and you didn't have money to buy more?: never true Smoking Status: Never smoker How often do you have a drink containing alcohol: never AUDIT-C Alcohol total score: 0 Non-prescribed substance use: denies use How often does anyone, including family, friends and others, physically hurt you : never How often does anyone, including family, friends and others, insult or talk down to you: never How often does anyone, including family, friends and others, threaten you with harm: never How often does anyone, including family, friends and others, scream or curse at you: never Meds Home Medications and Allergies Home Medications ?Medication ?Instructions ?Recorded ?Confirmed ?Type magnesium 200 mg tablet 400 mg PO QDAY 07/11/2403/18 History 103-folic ac 400 tab PO 07/11/24 04/13/25 His tory mcg-omega-3 32.5 mg-dha-fish oil chew tablet ( with DHA and Folic Acid) cholecalciferol (vitamin D3) 25 25 mcg PO QDAY 5 04/14/25 History mcg (1,000 unit) capsule Allergies Allergy/AdvReac Type Severity Reaction Status Date / Time Cephalosporins Allergy Intermediate Hives Verified 04/14/25 19:06 Results Labs Labs: Laboratory Results - last 24 hr 04/14/25 19:55 WBC 10.41 RBC 4.21 Hgb 12.5 Hct 37.3 MCV 89 MCH 30 MCHC 34 RDW Coeff of Celestine 12.5 Plt Count 213 Neut % (Auto) 75.7 H Lymph % (Auto) 18.3 L [place] % (Auto) 4.4 Eos % (Auto) 0.3 Baso % (Auto) 0.1 Neut # (Auto) 7.90 H Lymph # (Auto) 1.90 [place] # (Auto) 0.50 Eos # (Auto) 0.03 Baso # (Auto) 0.01 Abs Immat Gran (auto) 0.12 Imm/Tot Granulo (auto) 1.2 Vital Signs Vital Signs: Last Vital Signs Temp 98.3 F 04/14/25 23:41 Pulse 91 04/14/25 23:41 Resp 18 04/14/25 23:41 BP 121/80 04/14/25 23:41 Pulse Ox 98 04/14/25 23:41 Weight: 79.7 kg Height: 157.48 cm Anesthesia Procedures Epidural Insertion Patient Location: OB Start Time: 00:46 Stop Time: 01:35 Start Date: 04/15/25 Stop Date: 04/15/25 Reason for Block: procedure for pain Patient Position: sitting Performed By: Giovanna Quintero Preanesthetic Checklist: IV checked, site marked, risks and benefits discussed, monitors and equipment checked, pre-op evaluation, timeout performed and anesthesia consent Prep: chlorhexidine gluconate Monitoring: blood pressure monitoring, continuous pulse oximetry and heart rate Approach: midline Vertebral Space: lumbar (1-5) Epidural Technique: CRUZ saline Needle Type: Tuohy needle Injection Technique: continuous catheter Needle gauge: 17 Needle Length (cm): 10 cm Needle Insertion Depth (cm): 7 Catheter Gauge: 19 Catheter Type: multi-orifice Catheter at skin depth (cm): 17 Test Dose Result: negative and lidocaine 1.5% with epinephrine 1 to 200,000
[2025-04-15] MEDS: OXYTOCIN 30 unit/500 ML in NS 30 UNIT/500 ML BAG 300 UNIT IVPB (04:26)
--- NOTE | 2025-04-15 04:49 | W.PM.OBVAGDE ---
OB Procedure Vag Delivery Mother Details Mother Details: The patient is a 24 year-old, 2, Para 1, admitted on 04/14/25 at Days gestation. : 2 Para: 1 Weeks Gestation: 38 Admission Date: 04/14/25 Additional Details Amniotic Membrane Status: intact Amniotic Membrane Rupture Date: 04/14/25 Amniotic Membrane Rupture Time: 22:39 Amniotic Membrane Fluid Description: Clear Analgesia/Anesthesia Type: Epidural Waterbirth: No Pitcoin: No Intrapartal Events: None Delivery augmentation: rupture of membranes Labor Onset: 15:00 Complete: 04:03 Pushin:17 Heart: heart tones during second stage were CAT 1 Delivery Details Delivery Date: 04/15/25 Route of delivery: Gender: Male Viability: Alive; Heart Rate Present Position at Delivery: OA Delivery Details: Delivered via [spontaneous] vaginal delivery. Infant was placed on maternal abdomen.? Cord was clamped and cut after a 30-60 second delay. Nose and mouth were bulb suctioned.? Infant weight pending. 1 Minute Interval Total Score: 8 5 Minute Interval Total Score: 9 Additional Details Shoulder Dystocia: No Placenta Delivery Time: 04:28 Placental Delivery Description: Spontaneous Delivery repair: Vicryl Blood Loss: 150 Laceration: Periurethral - 1st Degree Episiotomy Description: None Blood Loss Measurement Type: EBL Bakri Used: No Sponge/Need Count Correct: Yes Cord Vessel Description: 3 Vessels Event Summary Status: Mother and were stable after delivery. Disposition: floor
[2025-04-15] MEDS: IBUPROFEN 600 MG TABLET PO ×3 (07:50→20:37)
[2025-04-15] MEDS: DOCUSATE SODIUM 100 MG CAPSULE PO (08:18)
[2025-04-15] MEDS: ACETAMINOPHEN 500 MG TABLET 1000 MG PO ×2 (16:58→23:49)
--- NOTE | 2025-04-15 18:14 | PM.ANPOST ---
Post Anesthesia Note Post Anesthesia Note Patient seen: Inpatient Respiratory Status: adequate Cardiovascular Status: adequate Mental Status: baseline Pain: adequate Temp: baseline Anesthetic awareness: N/A Complications: none Follow care: none
--- NOTE | 2025-04-16 07:34 | P.DS_ITS ---
DS: Providers Provider Time Seen by Provider: 07:45 Date Seen: 04/16/25 Date of admission: 04/14/25 19:40 Primary care physician: Tanvi Mccoy, FINISHER [employer], [employer]ODUCTION CONTROL [employer] CLERK Admitting Clinician: Alexy Jackson M.D. Attending Physician on discharge: Alexy Jackson M.D. Date of Discharge: 04/16/25 DS: Diagnosis Discharge Diagnosis (1) care and examination of lactating mother: Status: Acute Exam Narrative: Exam Narrative: Constitutional: no apparent distress Respiratory: no labored breathing, lungs clear to auscultation Cardiovascular: regular heart rate and rhythm Abdomen: soft, non-tender, uterine fundus is firm 1cm below umbilicus- appropriate for this stage of healing Perineum: no swelling, no discoloration, 1st degree periurethral tear well approximated Extremities: no edema, full sensation Mood: stable Const: Vital Signs, click to edit/add: Vital Signs - 24 hr 04/15/25 08:05 04/15/25 11:00 04/15/25 16:55 Temperature 98.1 F 98.2 F 98.9 F Pulse Rate [Pulse Oximeter] 76 78 90 Respiratory Rate 16 16 16 Blood Pressure [Ri ght Arm] 113/72 111/72 105/70 Pulse Oximetry 98 97 98 Oxygen Delivery Me thod Room Air Room Air Room Air 04/15/25 19:22 04/15/25 23:44 Temperature 97.3 F L Pulse Rate [Pulse Oximeter] 98 71 Respiratory Rate 16 16 Blood Pressure [Ri ght Arm] 111/75 122/85 Pulse Oximetry 96 97 Oxygen Delivery Me thod Room Air Room Air OB - DS: Summary Hospital Course Hospital Course: Renay is a 24 y.o. G 2 P 2 who was admitted to [facility] for spontaneous labor.? She had a NVD that was uncomplicated. The patient feels well.? The pain is well controlled with current medications.? She has no new complaints.? She is breast feeding and reports things are going well. the patient has done well.? Vitals have been stable.? She has remained afebrile.? Has a good appetite, is tolerating a general diet.? She is voiding without difficulty.? She is passing gas and has not had a bowel movement.? She is ambulating and denies any dizziness.? Has small amount of rubra lochia. She is planning natural family planning for prevention.? ?? Problems: None? ?? plan:? Discharge?home with baby.? Follow up in 2 weeks and 6 weeks.? , may see if needed? I,?OPAL Andrade, JUSTINO, was present for visit and have reviewed and?agree?with documentation by the Certified Nurse Midwifery?Student.? ? Peripartum Data Infant delivery method: Vaginal Laceration description: Periurethral - 1st Degree Episiotomy description: None complications: none Infant Gender: Male Infant Discharge Plan: Home Status at Discharge Functional status at discharge: independent ambulation Overall status at discharge: patient is progressing back to baseline Time Spent with Patient Time attestation: Total time spent providing and/or coordinating discharge services: Time spent: Less than 30 minutes Discharge Plan Discharge Disposition: Home, Self-Care Date of Admission: 04/14/25 19:40 Attending Provider on Discharge: Hilary Morin Primary Care Provider: Tanvi Mccoy Condition: Stable Anticipated Discharge Date/Time: 04/16/25 10:00 Discharge Medications: New docusate sodium 100 mg Capsule 100 mg PO DAILY PRN (Reason: Constipation) Qty: 60 0RF ibuprofen 600 mg Tablet 600 mg PO Q6H PRNQty: 60 0RF Continued magnesium 200 mg tablet 400 mg PO QDAY with DHA-Folic Acid 400-32.5 mcg-mg tablet,chewable 1 tab PO DAILY cholecalciferol (vitamin D3) 25 mcg (1,000 unit) capsule 25 mcg PO QDAY Discharge Orders: Discharge Order (Routine); Ordered 04/16/25 Ordered By: Hilary Morin Patient Education: OB Over the Counter Medication Information, OB Vaginal/Breast Feeding Additional Instructions: Discharge instructions were reviewed with the patient including signs and symptoms of infection and home going medications Nothing vaginally for 6 weeks: no tampons or intercourse Do not drive while taking narcotic pain medication(s) Off Work or School for 6 weeks Symptoms to report to doctor: * Bleeding that saturates more than one pad per hour * Passing clots larger than the size of a golf ball * Pain not relieved by prescribed medication * Fever above 100.4 degrees Fahrenheit * A foul vaginal odor * Difficulty in emotions, mood, and functions * Thoughts of hurting yourself and/or * Painful, reddened area in your breast * Any drainage, redness, or tenderness in your IV/epidural site * Severe headache that doesn't improve after taking medications * Changes in vision, including temporary loss of vision, blurred vision, and/or light sensitivity * Upper abdominal pain (usually under ribs on the right side) * Decrease in urination or painful, frequent urinating * Chest pain * Shortness of breath * Tenderness or pain with redness and/swelling in the calf(s) of your leg 2-week visit: discuss feeding concerns, review control options and screen for anxiety/depression. 6-week visit for an annual exam. consultation services are available to all mothers and babies for the first year after delivery.? To make an appointment, please call [phone]. Activity Level: Activity as Tolerated and No strenuous activity Discharge Diet: Regular Follow Up Appointments: [facility] [Provider Group] Forms: [place] Info Instructions
[2025-04-16 08:00] VITALS: BP 109/76; PULSE 68; RESP 16; TEMP 36.4; O2SAT 96
[2025-04-16] MEDS: IBUPROFEN 600 MG TABLET PO (08:08)
[2025-04-16] MEDS: DOCUSATE SODIUM 100 MG CAPSULE PO (08:08)
== END 2025-04-16 11:00 | disposition home or self-care (01) | DRG 560 ==
LOC: OB OUT 19:42 → OB 19:42
PROVIDERS: Admitting Provider Obstetrics & Gynecology; PCP Nurse Practitioner Family; Visit Provider Obstetrics & Gynecology
DX: O99.824 Streptococcus B carrier state complicating childbirth (principal); O70.0 First degree perineal laceration during delivery; O99.344 Other mental disorders complicating childbirth; F41.9 Anxiety disorder, unspecified; F32.A Depression, unspecified; Z37.0 Single live birth; Z3A.38 38 weeks gestation of pregnancy; O36.5930 Maternal care for other known or suspected poor fetal growth, third trimester, not applicable or unspecified
CPT/HCPCS: 01967; 36415; 85025; 86592; G0463; A9270; J0290; J2795; J7120